=== PATIENT | female | born 2000 | race Two or more races ===

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

== ENCOUNTER → 2022-05-21 11:01 | Outpatient (BNVA) | payer OTHER, SELFPAY | PROVIDERS: PCP Pediatrics; Visit Provider Physician Assistant | DX: Z13.89 Encounter for screening for other disorder (principal) ==

== ENCOUNTER → 2022-06-10 10:53 | Outpatient (BNVA) | payer OTHER, SELFPAY | PROVIDERS: PCP Pediatrics; Visit Provider Physician Assistant Surgical | DX: E66.01 Morbid (severe) obesity due to excess calories (principal) | CPT/HCPCS: 99202 ==

== ENCOUNTER 2022-06-19 09:15 | Outpatient (REF) | payer OTHER, SELFPAY ==
--- NOTE | ~2022-06-19 | XR_ITS ---
EXAMINATION: XR CHEST CLINICAL INFORMATION: Reason for Exam E66.01 - Morbid (severe) obesity due to excess calories COMPARISON: Chest radiograph 07/10/2019 TECHNIQUE: 2 views of the chest FINDINGS: Clear lungs. No pneumothorax or pleural effusion. Normal cardiomediastinal silhouette. XR/XR chest 2V IMPRESSION: * Clear lungs.
--- NOTE | 2022-06-19 09:21 | ECG_ITS ---
Test Reason : MORBID OBESITY Blood Pressure : / mmHG Vent. Rate : 068 BPM Atrial Rate : 068 BPM P-R Int : 162 ms QRS Dur : 084 ms QT Int : 384 ms P-R-T Axes : 041 051 012 degrees QTc Int : 408 ms Normal sinus rhythm with sinus arrhythmia Nonspecific T wave abnormality Abnormal ECG When compared with ECG of 11-MAR-2011 13:06, No significant changes seen Referred By: Anjel Yo Electronically Signed By:Kana Dhillon
[2022-06-19 09:30] LABS: MANUAL DIFF FLAG NO
[2022-06-19 09:53] LABS: Basophils Percent Auto 0.5 % (0-2); Eosinophils Absolute Auto 0.2 X10*3/uL (0.0-0.4); Eosinophils Percent Auto 2.2 % (0-4); Estimated Average Glucose 114 mg/dL; Hematocrit 36.6 % (37.0-47.0); Hemoglobin 11.4 g/dl (12.0-16.0); Hemoglobin A1c % 5.6 %; Imm Gran Abs Auto 0.02 X10*3/uL (0.00-0.03); Imm Gran Pct Auto 0.2 % (0.0-0.4); Lymphocytes Absolute Auto 3.9 X10*3/uL (1.2-4.9); Lymphocytes Percent Auto 46.2 % (20-40); Mean Corpuscular HGB Conc 31.1 g/dl (31.0-35.0); Mean Corpuscular Hemoglobin 25.1 pg (27.0-33.0); Mean Corpuscular Volume 80.4 fL (80.0-98.0); Mean Platelet Volume 10.2 fL (9.4-12.3); Monocytes Absolute Auto 0.5 X10*3/uL (0.1-1.2); Monocytes Percent Auto 5.4 % (2-11); Neutrophils Absolute Auto 3.9 x10*3/uL (2.0-8.3); Neutrophils Percent Auto 45.5 % (45-73); Platelet Count 385 X10*3/uL (160-400); Red Blood Count 4.55 X10*6/uL (4.20-5.50); Red Cell Distribution Width 15.5 % (11.0-16.0); White Blood Count 8.5 X10*3/uL (4.8-10.8)
[2022-06-19 10:28] LABS: Alanine Aminotransferase 41 U/L (0-31); Albumin Level 4.3 g/dL (3.5-5.0); Alkaline Phosphatase 59 U/L (39-117); Anion Gap 13 (12-20); Aspartate Amino Transferase 38 U/L (5-31); Bilirubin Total 0.3 mg/dL (0.0-1.0); Blood Urea Nitrogen 13 mg/dL (9-16); C Reactive Protein 2.08 mg/dL (< or = 0.50); Calcium 9.1 mg/dL (8.4-10.2); Carbon Dioxide 25 mmol/L (22-29); Chloride 105 mmol/L (96-108); Cholesterol 207 mg/dL; Estimated Glomerular Filt Rate > 60; Glucose Random 98 mg/dL (60-115); HDL Cholesterol 28 mg/dL; Iron 35 mcg/dL (30-160); LDL Cholesterol Calculated 155 mg/dl; Percent Iron Saturation 13 % (15-50); Potassium 4.4 mmol/L (3.3-5.1); Sodium 139 mmol/L (135-145); Total Iron Binding Capacity 279 mcg/dL (228-428); Total Protein 7.3 g/dL (6.5-8.0); Triglycerides 124 mg/dL; Unsaturated Iron Binding 244 ug/dL
[2022-06-19 10:58] LABS: Ferritin 56 ng/mL (10-122); Folate 15.5 ng/mL (> or = 4.0); Insulin 21 uU/mL (2-29); TSH reflex Free T4 2.82 uIU/mL (0.32-4.0); Vitamin B12 237 pg/mL (200-900); Vitamin D 25-OH Total 8.8 ng/mL (>30)
[2022-06-23 13:39] LABS: Zinc 74 mcg/dL (60-130)
[2022-06-25 06:04] LABS: Vitamin A 40 mcg/dL (26-72)
[2022-06-26 11:34] LABS: Calcium (PTHI) 9.5 mg/dL (8.9-10.4)
[2022-06-26 16:59] LABS: Vitamin B1 9 nmol/L (8-30)
== END 2022-06-19 09:16 | disposition home or self-care (01) ==
LOC: HO.LAB 09:15
PROVIDERS: PCP Pediatrics; Visit Provider Physician Assistant Surgical
DX: D68.00 Von Willebrand disease, unspecified (principal); E78.00 Pure hypercholesterolemia, unspecified; E66.01 Morbid (severe) obesity due to excess calories
CPT/HCPCS: 36415; 71046; 80053; 80061; 82306; 82607; 82728; 82746; 83036; 83525; 83540; 83970; 84425; 84443; 84590; 84630; 85025; 86140; 93005

== ENCOUNTER 2022-06-26 11:26 | Outpatient (REF) | payer OTHER, SELFPAY ==
[2022-06-29 13:03] LABS: H Pylori Breath Test Negative (Negative)
== END 2022-06-26 11:27 | disposition home or self-care (01) ==
LOC: HO.LNP 11:26
PROVIDERS: PCP Pediatrics; Visit Provider Physician Assistant Surgical
DX: Z11.2 Encounter for screening for other bacterial diseases (principal)
CPT/HCPCS: 83013; 99211

== ENCOUNTER → 2022-06-30 12:49 | Outpatient (BNVA) | payer OTHER, SELFPAY | PROVIDERS: PCP Pediatrics; Visit Provider Physician Assistant Surgical | DX: E66.01 Morbid (severe) obesity due to excess calories (principal) | CPT/HCPCS: 99212 ==

== ENCOUNTER → 2022-07-01 14:00 | Outpatient (BNVA) | payer OTHER, SELFPAY | PROVIDERS: PCP Pediatrics; Visit Provider Counselor Mental Health ==

== ENCOUNTER → 2022-07-13 15:30 | Outpatient (BNVA) | payer OTHER, SELFPAY | PROVIDERS: Referring Provider Physician Assistant Surgical; Visit Provider Dietitian, Registered | DX: E66.9 Obesity, unspecified (principal) | CPT/HCPCS: 97802 ==

== ENCOUNTER → 2022-07-17 10:48 | Outpatient (BNVA) | payer OTHER, SELFPAY | PROVIDERS: PCP Pediatrics; Visit Provider Counselor Mental Health ==

== ENCOUNTER → 2022-08-11 14:06 | Outpatient (BNVA) | payer OTHER, SELFPAY | PROVIDERS: Visit Provider Physician Assistant Surgical | DX: E66.01 Morbid (severe) obesity due to excess calories (principal); Z68.41 Body mass index [BMI] 40.0-44.9, adult | CPT/HCPCS: 99212 ==

== ENCOUNTER → 2022-08-21 12:48 | Outpatient (BNVA) | payer OTHER, SELFPAY | PROVIDERS: Referring Provider Physician Assistant Surgical; Visit Provider Dietitian, Registered | DX: E66.9 Obesity, unspecified (principal); Z71.3 Dietary counseling and surveillance | CPT/HCPCS: 97803 ==

== ENCOUNTER → 2022-08-28 10:57 | Outpatient (BNVA) | payer OTHER, SELFPAY | PROVIDERS: Visit Provider Counselor Mental Health ==

== ENCOUNTER 2022-09-24 08:49 | Outpatient (REF) | payer OTHER, SELFPAY ==
--- NOTE | ~2022-09-24 | FL_ITS ---
EXAMINATION: XR FLUOROSCOPY UPPER GI WITH AIR CLINICAL INFORMATION: Morbid obesity. COMPARISON: None available. TECHNIQUE: Air-contrast upper GI examination. FINDINGS: There is normal elevation of the soft palate while saying candy. There is normal apposition of the vocal cords while saying E. The patient swallowed thin and thick barium and a half-inch diameter barium tablet without difficulty. No nasopharyngeal reflux or tracheal aspiration identified. No cricopharyngeal hypertrophy. There is normal esophageal motility. No persistent stricture or mucosal abnormality is seen. No hiatal hernia. No gastroesophageal reflux elicited with water siphon test. There is some retained gastric content making evaluation for luminal abnormality limited. No suspicious masses appreciated. There is normal distensibility of the stomach. There was no delay in gastric emptying. The duodenal bulb and sweep appeared unremarkable. FLUOROSCOPY TIME: 2.6 minutes. DOSE AREA PRODUCT: 26.592 Gy-cm2 (alvarez-centimeter squared). FL/FL upper GI w air IMPRESSION: Normal air-contrast upper GI examination. Small amount of retained gastric content present at time of study.
--- NOTE | ~2022-09-24 | US_ITS ---
EXAMINATION: US COMPLETE ABDOMEN WITH LIVER ELASTOGRAPHY CLINICAL INFORMATION: Obesity COMPARISON: Abdominal CT 2021 TECHNIQUE: Real-time imaging of the abdominal viscera. Noninvasive ultrasound liver fibrosis assessment is performed using Adiel ElastPQ point quantification shear wave elastography (2D-SWE) with a C5-2 MHz transducer. Multiple elastography samples are obtained. FINDINGS: PANCREAS: Normal. ABDOMINAL AORTA: The proximal, middle, and distal aortic segments are normal in caliber. INFERIOR VENA CAVA: Visualized portions are normal. LIVER: Echogenic liver suggestive of fatty infiltration. No focal lesion or intrahepatic biliary duct dilatation. The right lobe measures 17 cm in length. The left lobe measures 11 cm in length. Portal flow is normal/ Shear wave liver elastography median stiffness is 1.8 m/s (reference: normal median stiffness is 1.3 m/s or less). IQR/median stiffness to assess sampling precision is 0.15 (reference: good quality data set is IQR/median stiffness of 0.15 or less). GALLBLADDER: Normal. The gallbladder is physiologically distended without evidence of stones, sludge, polyps, wall thickening or pericholecystic fluid. COMMON BILE DUCT: Normal in caliber measuring 0.2 cm in diameter. RIGHT KIDNEY: Normal. No hydronephrosis. No renal calculi or focal parenchymal lesions. The kidney measures 11 cm in maximum dimension. LEFT KIDNEY: Normal. No hydronephrosis. No renal calculi or focal parenchymal lesions. The kidney measures 12 cm in maximum dimension. SPLEEN: Normal. The spleen measures 10 cm in maximum dimension. FREE FLUID: None. US/US abdomen comp w elastography IMPRESSION: 1. Impression: Echogenic liver suggestive of fatty infiltration. 2. Liver elastography: Slightly limited due to liver sampling. Liver stiffness slightly increased questionable for compensated advanced chronic liver disease but need further test for confirmation. REFERENCE: Society of Radiologists in Ultrasound Liver Stiffness Thresholds (2020): LIVER STIFFNESS THRESHOLDS: *Liver Stiffness equal or less than 1.3 m/s: High probability of being normal. *Liver Stiffness less than 1.7 m/s: In the absence of other known clinical signs, rules out compensated advanced chronic liver disease. *Liver Stiffness 1.7-2.1 m/s: Suggestive of compensated advanced chronic liver disease but need further test for confirmation. *Liver Stiffness over 2.1 m/s: Rules in compensated advanced chronic liver disease. *Liver Stiffness over 2.4 m/s: Suggestive of clinically significant portal hypertension. QUALITY OF DATA SET: *IQR/Median value equal or less than 0.15 implies a quality data set. *IQR/Median value over 0.15 implies a poor quality data set. SIGNIFICANT CHANGE FROM PRIOR EXAM: Significant change if liver stiffness measurement is 10% or greater from prior exam. OTHER CONSIDERATIONS: The stage of liver fibrosis may be overestimated in the setting of acute hepatitis, liver inflammation, elevated liver function tests, hepatic vascular congestion, obstructive cholestasis, non-fasting state, and infiltrative diseases such as amyloidosis and lymphoma. In some patients with NAFLD, the liver stiffness thresholds for compensated advanced chronic liver disease may be lower. In causes other than viral hepatitis and NAFLD, liver stiffness thresholds are not well established.
== END 2022-09-24 08:50 | disposition home or self-care (01) ==
LOC: HO.XRAY 08:49
PROVIDERS: Visit Provider Physician Assistant Surgical
DX: Z01.818 Encounter for other preprocedural examination (principal); D68.00 Von Willebrand disease, unspecified; E66.01 Morbid (severe) obesity due to excess calories; K21.9 Gastro-esophageal reflux disease without esophagitis; E78.00 Pure hypercholesterolemia, unspecified
CPT/HCPCS: 74246; 76705; 76981

== ENCOUNTER → 2022-09-25 10:30 | Outpatient (BNVA) | payer OTHER, SELFPAY | PROVIDERS: Visit Provider Counselor Mental Health ==

== ENCOUNTER → 2022-10-09 15:52 | Outpatient (BNVA) | payer OTHER, SELFPAY | PROVIDERS: Visit Provider Counselor Mental Health ==

== ENCOUNTER 2022-11-12 11:46 | Outpatient (AMB) | payer OTHER, SELFPAY ==
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
== END 2022-11-12 16:01 | disposition home or self-care (01) ==
PROVIDERS: Visit Provider Counselor Mental Health
DX: F34.1 Dysthymic disorder (principal); F43.20 Adjustment disorder, unspecified
CPT/HCPCS: 90837

== ENCOUNTER → 2022-11-12 11:46 | Outpatient (BNVA) | payer OTHER, SELFPAY | PROVIDERS: Visit Provider Counselor Mental Health ==

== ENCOUNTER 2022-11-18 12:00 | Outpatient (AMB) | payer OTHER, SELFPAY ==
--- NOTE | 2022-11-18 12:57 | MHC.WMTHER ---
Intake Intake Visit Reasons: VIDEO F/U [employer] Required: No Allergies bee pollen [BEE STINGS] Allergy (Severe, Verified 08/11/22 14:15) SWELLING amoxicillin [AMOXICILLIN] Allergy (Unknown, Verified 08/11/22 14:15) UNKNOWN SEASONAL ALLERGIES Allergy (Unknown, Uncoded 10/19/21 04:26) SINUS CONGESTION Do you need a note to return to daycare/school/sports/work: No PFSH Surgical History Hx of tonsillectomy Hx of wisdom tooth extraction Family History Mother Arthritis Anemia Father Diabetes High cholesterol Gout Brother No problems noted. Sister No problems noted. Sister No problems noted. Social History Alcohol intake: never Patient Tobacco Use Status: Never used Tobacco Behavioral Health Assessment Weight Management Therapy Therapy Notes Details PT presents for a f/up. PT presents sad as today is her grandfather's one year anniversary from his passing. Also stressed about school. PT states she has started drinking 1 shake at day (11am one), has been skipping breakfast and having regular dinner cooked by her mother. INTERVENTIONS: Discussed overall functioning. Processed grief and sadness as today is grandfather's 1 year anniversary. Validated feelings, explored ways she can cope with his loss and commemorate her grandfather's memory and honor his life, to start overcoming grief and slowly work towards acceptance of his loss. Worked in behavioral activation plan. Started by completing a TO-DO list and organizing rest of the week. Explored available resources in the community for her use. RESPONSE: Cooperative, responded well to interventions. PLAN: Continue receiving support on a bi-weekly basis. Presenting Concerns Referral Source Marlene Rivera [facility]. Reason for referral Supportive therapy for depression, anxiety, cope with recent trauma experiences and continue support with surgical weight-loss plan. Precipitating Event Family stress, Financial stress, medical issues. Assessment & Plan Assessment & Plan (1) Dysthymia: Code(s): F34.1 - Dysthymic disorder Plan: Bi-weekly sessions for symptom management and monitor functioning. (2) Adjustment disorder: Code(s): F43.20 - Adjustment disorder, unspecified Plan: Bi-weekly sessions to support with adjustment Sx with anxiety after recent traumatic losses. Plan Continue attending regular psychotherapy with this provider. -Management of urgers/thoughts around food -Consistency and adherence to WMP treatment -Symptom management (Depression/anxiety management) Telehealth Telehealth Location of provider rendering services: other Location of patient: address on file Patient Identification confirmed using: Name, : Yes Telehealth method: video Patient verbally consented to treatment: Yes Patient verbally consented to billing insurance company: Yes Patient informed of any privacy concerns related to visit: Yes Minutes spent on Phone/Video with Pt.: 60 Coding Level of Care Code Established Pt Tele Psytx >53 mins ([id number]) Patient Type Established Diagnoses Dysthymia F34.1 Adjustment disorder F43.20 Time Spent (min) 60
== END 2022-11-18 14:24 | disposition home or self-care (01) ==
LOC: HO.HBST 12:11
PROVIDERS: Visit Provider Counselor Mental Health
DX: F34.1 Dysthymic disorder (principal); F43.20 Adjustment disorder, unspecified
CPT/HCPCS: 90837

== ENCOUNTER → 2022-11-18 12:00 | Outpatient (BNVA) | payer OTHER, SELFPAY | PROVIDERS: Visit Provider Counselor Mental Health ==

== ENCOUNTER 2022-11-30 15:19 | Outpatient (AMB) | payer OTHER, SELFPAY ==
--- NOTE | 2022-11-30 15:30 | MHC.OFFVISWM ---
Intake VS Expanded 11/30/22 15:33 Height 4 ft 11 in Weight 226 lb BMI 45.6 BP 128/60 Blood Pressure Location Rt brachial Blood Pressure Position Sitting Pulse 67 Pulse Source Pulse Oximeter Temp 97.6 F Temperature Source Temporal Artery Scan Pulse Oximetry 97 Oxygen Delivery Method Room Air Body Fat 97.0 Body Fat Percentage 42.9 Free Fat Mass 129.0 Muscle Mass 122.4 Visceral Mass 11.0 Water Mass 92.8 BMR 1,871 Intake Visit Reasons: (OV) F/U SWL Equipment [employer] Required: No Allergies bee pollen [BEE STINGS] Allergy (Severe, Verified 11/30/22 15:32) SWELLING amoxicillin [AMOXICILLIN] Allergy (Unknown, Verified 11/30/22 15:32) UNKNOWN SEASONAL ALLERGIES Allergy (Unknown, Uncoded 10/19/21 04:26) SINUS CONGESTION Medication List - Last Reconciled 11/30/22 by SHARON Pena cholecalciferol (vitamin D3) 125 mcg PO DAILY clindamycin phosphate 1% 1 appl topical DAILY cyanocobalamin (vitamin B-12) 500 mcg PO DAILY doxycycline hyclate 100 mg PO DAILY ferrous sulfate (FeroSul) 325 mg PO DAILY spironolactone 25 mg PO QAM thiamine HCl (vitamin B1) 100 mg PO DAILY HPI HPI Comments History of Present Illness Details The patient is a pleasant 22 year old female who returns to the clinic for pre-operative surgical weight loss management. They were last seen in the office on 08/11/22, recorded weight at that time was 219.6 pounds, with a BMI of 44.3. Today's weight is 226 pounds and BMI is 45.7. There has been a weight loss of 7.4 pounds since initiating the surgical weight loss program on 06/10/22 with a total body weight loss of 3.1 %. Pre op work up completed as follows: SWL classes:? 11/10 appts: f/u 12/09/22 RD appts: cleared 08/21/22 Labs: 06/19/22-low D, iron, B12:237, B1 H. pylori: 06/26/22-neg CXR: 06/19/22-nad EK06/19/22-non sp T wave abnl ABD U/S: 09/24/22-fatty liver UGI: 09/24/22-normal The patient reports she has been dealing with grief and an ailing grandmother. She has recognized her weight gain but reports she wants to remain in the progrgam and continue to lose the wqeight. SHe has been in frequent meetings with . She was off the meal plan for 6 weeks and re-started about 2 months ago. Current meal plan includes: 3 Orgain shakes First shake (1 scoop in 8 oz unsweetened almond milk, may add ice if you wish) at 8am-10am Second shake (1 scoop in 8 oz unsweetened almond milk, may add ice if you wish) at 11am-1pm 1 occitan yogurt w fresh berries at 2pm-4pm. Dinner at 430pm (8 forks of protein and 8 forks of salad/vegetables). Another shake with 1 scoop in 8 oz unsweetened almond milk at 730pm-930pm. Drinking 64 oz of water, no soda or juice Current exercise plan includes: 3 days per week walking at home, around the block, 30-60 minutes, [address] PFSH Surgical History Hx of tonsillectomy Hx of wisdom tooth extraction Family History Mother Arthritis Anemia Father Diabetes High cholesterol Gout Brother No problems noted. Sister No problems noted. Sister No problems noted. Social History Alcohol intake: never Patient Tobacco Use Status: Never used Tobacco Physical Exam Vital Signs: Last Vital Signs Temp 97.6 F 11/30/22 15:33 Pulse 67 11/30/22 15:33 BP 128/60 11/30/22 15:33 Pulse Ox 97 11/30/22 15:33 Oxygen Delivery Method Room Air 11/30/22 15:33 BMI result Body Mass Index 45.6 Const General: healthy appearing and no acute distress Resp Effort & Inspection: normal respiratory effort Auscultation: clear to auscultation bilaterally Cardio Rate: regular rate Rhythm: regular rhythm GI Auscultation: normal bowel sounds Extrem General: Yes normal to inspection Assessment & Plan Assessment & Plan (1) Morbid obesity: Code(s): E66.01 - Morbid (severe) obesity due to excess calories Plan: Pt had 6 week time off meal plan and has not been seen in 3 months. She reports she is now back on track after dealing with grief and an ailing grandmother. She states she wants to continue the SWL program. Encouraged to go to the gym Meal plan is balanced but not enough exercise. She will continue to try and will rtc in 4 weeks. If unable to continue will w/d Encouraged to text weekly with weight and if any questions. Coding Level of Care Code Est Pt Level 3 (31543) Diagnoses Morbid obesity E66.01
[2022-11-30 15:33] VITALS: BP 128/60; PULSE 67; TEMP 36.4; O2SAT 97; BMI 45.6
== END 2022-11-30 15:58 | disposition home or self-care (01) ==
PROVIDERS: Visit Provider Physician Assistant Surgical
DX: E66.01 Morbid (severe) obesity due to excess calories (principal); Z68.42 Body mass index [BMI] 45.0-49.9, adult
CPT/HCPCS: 99213

== ENCOUNTER → 2022-11-30 15:19 | Outpatient (BNVA) | payer OTHER, SELFPAY | PROVIDERS: Visit Provider Physician Assistant Surgical | DX: E66.01 Morbid (severe) obesity due to excess calories (principal); E51.9 Thiamine deficiency, unspecified; E53.8 Deficiency of other specified B group vitamins; E55.9 Vitamin D deficiency, unspecified; K76.0 Fatty (change of) liver, not elsewhere classified; Z68.42 Body mass index [BMI] 45.0-49.9, adult | CPT/HCPCS: 99212 ==

== ENCOUNTER 2022-12-07 12:21 | Emergency (ER) | payer OTHER, SELFPAY ==
[2022-12-07 12:35] VITALS: BP 142/88; PULSE 86; RESP 16; TEMP 36.2; O2SAT 97; BMI 46.4
--- NOTE | 2022-12-07 12:36 | ED.GENADULT ---
HPI - General Adult General Chief complaint: Upper Respiratory Symptoms Stated complaint: sore throat Time Seen by Provider: 12/07/22 14:59 Source: patient Mode of arrival: ambulatory Limitations: no limitations History of Present Illness HPI narrative: Patient is a 22-year-old female presenting to the emergency department with complaint of sore throat, cough, shortness of breath for 3 days. States feels as though throat is closing when swallowing. Denies fevers. 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 MD complaint: sore throat, cough Onset (ago): day(s) Severity: moderate Quality: burning Pain Consistency: constant Relieving factors: none Exacerbating factors: eating Associated symptoms: cough Treatments prior to arrival: none Related Data Home Medications Medication Instructions Recorded Confirmed clindamycin phosphate 1 % topical 1 appl topical DAILY 06/10/22 11/30/22 gel doxycycline hyclate 100 mg 100 mg PO DAILY 06/10/22 11/30/22 tablet,delayed release spironolactone 25 mg tablet 25 mg PO QAM 06/30/22 11/30/22 Previous Rx's Medication Instructions Recorded cholecalciferol (vitamin D3) 125 125 mcg PO DAILY #90 caps 06/19/22 mcg (5,000 unit) capsule cyanocobalamin (vitamin B-12) 500 500 mcg PO DAILY #90 tabs 06/19/22 mcg tablet ferrous sulfate 325 mg (65 mg 325 mg PO DAILY #60 tabs 06/19/22 iron) tablet (FeroSul) thiamine HCl (vitamin B1) 100 mg 100 mg PO DAILY #90 tabs 06/29/22 tablet Allergies Allergy/AdvReac Type Severity Reaction Status Date / Time bee pollen [BEE STINGS] Allergy Severe SWELLING Verified 12/07/22 12:39 amoxicillin [AMOXICILLIN] Allergy Unknown UNKNOWN Verified 12/07/22 12:39 SEASONAL ALLERGIES Allergy Unknown SINUS Uncoded 12/07/22 12:39 CONGESTION Review of Systems Review of Systems: As per HPI. Yes all other systems are reviewed and are negative Constitutional: Constitutional: Reports as per HPI PMF Past Medical History Surgical History Hx of tonsillectomy Hx of wisdom tooth extraction Family History Family History Mother Arthritis Anemia Father Diabetes High cholesterol Gout Brother No problems noted. Sister No problems noted. Sister No problems noted. Social History Social History Alcohol intake: never Patient Tobacco Use Status: Never used Tobacco Physical Exam ED Vital Signs: Vital Signs - 24 hr 12/07/22 12:35 Temperature 97.2 F Pulse Rate 86 Respiratory Rate 16 Blood Pressure 142/88 H Pulse Oximetry 97 Oxygen Delivery Method Room Air BMI result Body Mass Index 46.4 Vital signs have been reviewed and appear to be correct. Blood pressure normal. Heart rate normal. Respiratory rate normal. Temperature normal. Oxygen saturation normal. Const General: cooperative, healthy appearing and no acute distress Orientation/consciousness: oriented to person, oriented to place, oriented to time and patient oriented x3 Limitations: no limitations HENMT Head: Yes normocephalic and Yes atraumatic Ears: external ears normal and TM's normal bilaterally General nose exam: Normal external nose present Face and sinus: Yes face symmetric Mouth: oropharynx normal and moist mucous membranes Throat: Yes posterior oropharynx normal, Yes tonsils normal, Yes uvula midline and No uvular edema Eyes Pupils: Equal, round and reactive pupils present Neck Neck: Yes normal visual inspection and Yes supple Resp Effort & Inspection: normal respiratory effort and able to speak in complete sentences Auscultation: clear to auscultation bilaterally Cardio Rate: regular rate Rhythm: regular rhythm Heart sounds: S1 normal heart sound present and S2 normal heart sound present GI Palpation (GI): Soft to palpation and nontender Auscultation: normoactive bowel sounds General: Yes no CVA tenderness Back/Spine/Pelvis Back: no CVA tenderness Skin General skin exam: elasticity normal and turgor normal Neuro General: oriented to person, oriented to place, oriented to time, patient oriented x3, moves all extremities, no focal motor deficits and CN's II-XI intact bilaterally Cranial nerves: Yes Equal, round and reactive pupils present Cognition (Neuro): normal cognition Extrem General: Yes full ROM, Yes no pedal edema and Yes no calf tenderness Psych Mental Status: mental status grossly normal Affect: normal affect Thought process: Normal thought process present Medical Decision Making Medical Decision Making MDM Narrative: Patient is a 22-year-old female presenting to the emergency department with complaint of sore throat, cough, shortness of breath for 3 days. On exam patient is awake, A+Ox3, VS WNL, afebrile, normal neurological exam without focal deficits, TMs normal bilaterally, no erythema, edema, or exudate to posterior oropharynx, lungs clear throughout. Given reported symptoms and physical exam findings, initial differential includes viral illness, COVID, influenza, strep pharyngitis. Swabs for COVID, flu, and strep all negative, patient updated on results. Discussed with patient that symptoms are likely related to a viral infection which will resolve on their own with rest and fluids. Advised Tylenol or ibuprofen for symptomatic treatment, warm saltwater gargles. Instructed patient to follow-up with primary care provider this week. Return precautions discussed. Patient verbalized understanding of and agreement with plan. Differential Diagnosis Differential Diagnoses: The differential diagnosis associated with the presentation includes As per [facility]. Lab Data [facility] Lab Attestation statement: I reviewed the patient's lab results. As per [facility]. Labs: Lab Results 12/07/22 12/07/22 12/07/22 Range/Units 13:28 13:28 13:28 COVID-19 (PIEDAD) Negative (Negative) COVID-19 Clin Com See Note Influenza Type A (SARI) Negative (Negative) Influenza Type B (SARI) Negative (Negative) Influenza A & B Note See Note S. pyogenes GrpA SARI Negative (Negative) External Record Review External record reviewed: Inpatient record, Office record and Outpatient record Discharge Plan Discharge Clinical Impression: Viral infection Patient Disposition: Home, Self-Care Instructions: Viral Syndrome (ED) Additional Instructions: You were evaluated in the emergency department today for sore throat and cough. Your Covid, flu, and strep tests were all negative. Your symptoms are likely related to a viral illness which will resolve on its own with time and rest. You should ensure adequate fluid intake, and can use Tylenol 650 mg or ibuprofen 600 mg every 6 hours as needed for fever or discomfort. You can also gargle with warm salt water several times daily. Please follow-up with your primary care provider this week. Return to the emergency department if you develop chest pain, worsening shortness of breath, difficulty swallowing, fever 100.4? F or greater or any other concerning symptoms. Prescriptions: No Action cyanocobalamin (vitamin B-12) 500 mcg tablet 500 mcg PO DAILY Qty: 90 1RF ferrous sulfate [FeroSul] 325 mg (65 mg iron) tablet 325 mg PO DAILY Qty: 60 0RF cholecalciferol (vitamin D3) 125 mcg (5,000 unit) capsule 125 mcg PO DAILY Qty: 90 0RF thiamine HCl (vitamin B1) 100 mg tablet 100 mg PO DAILY Qty: 90 0RF clindamycin phosphate 1 % gel 1 appl topical DAILY doxycycline hyclate 100 mg tablet,delayed release (DR/EC) 100 mg PO DAILY spironolactone 25 mg tablet 25 mg PO QAM
[2022-12-07 13:55] LABS: IDNOW Serial# 6674DD1D; Strep A Nucleic Acid Negative (Negative)
[2022-12-07 14:00] LABS: COVID-19 Test Negative (Negative); IDNOW Serial# 55D5AD1C
[2022-12-07 14:08] LABS: IDNOW Serial# BCCEAD1C; Influenza A Negative (Negative); Influenza B2 Negative (Negative)
== END 2022-12-07 15:09 | disposition home or self-care (01) ==
PROVIDERS: Registered Nurse Emergency; Emergency Provider Emergency Medicine
DX: B34.9 Viral infection, unspecified (principal); R05.9 Cough, unspecified; Z20.822 Contact with and (suspected) exposure to COVID-19; Z20.828 Contact with and (suspected) exposure to other viral communicable diseases; Z79.899 Other long term (current) drug therapy
CPT/HCPCS: 87502; 87635; 87651; 99282; 99283

== ENCOUNTER 2022-12-09 11:00 | Outpatient (AMB) | payer OTHER, SELFPAY ==
--- NOTE | 2022-12-09 11:08 | MHC.WMTHER ---
Intake Intake Visit Reasons: VIDEO BH F/U Allergies bee pollen [BEE STINGS] Allergy (Severe, Verified 12/07/22 12:39) SWELLING amoxicillin [AMOXICILLIN] Allergy (Unknown, Verified 12/07/22 12:39) UNKNOWN SEASONAL ALLERGIES Allergy (Unknown, Uncoded 12/07/22 12:39) SINUS CONGESTION PFSH Surgical History Hx of tonsillectomy Hx of wisdom tooth extraction Family History Mother Arthritis Anemia Father Diabetes High cholesterol Gout Brother No problems noted. Sister No problems noted. Sister No problems noted. Social History Alcohol intake: never Patient Tobacco Use Status: Never used Tobacco Behavioral Health Assessment Weight Management Therapy Therapy Notes Details PT presents for a f/up. PT presents frustrated about challenges to be fully committed with WMP. INTERVENTIONS: Active listening, processed sources of stress. Problem solving exercise. Clinical case management provided by Assisted client with available resources for housing and get her own SNAP benefits. Gently challenge client about her goals/expectations Vs. Program expectation. RESPONSE: PT cooperative and active in session. PLAN: Continue receiving support on a bi-weekly basis. Presenting Concerns Referral Source Marlene Rivera [facility]. Reason for referral Supportive therapy for depression, anxiety, cope with recent trauma experiences and continue support with surgical weight-loss plan. Precipitating Event Family stress, Financial stress, medical issues. Assessment & Plan Assessment & Plan (1) Dysthymia: Code(s): F34.1 - Dysthymic disorder Plan: Bi-weekly sessions for symptom management and monitor functioning. (2) Adjustment disorder: Code(s): F43.20 - Adjustment disorder, unspecified Qualifiers: Adjustment disorder type: with anxious mood Qualified Code(s): F43.22 - Adjustment disorder with anxiety Plan: Bi-weekly sessions to support with adjustment Sx with anxiety after recent traumatic losses. Plan Continue attending regular psychotherapy with this provider. -Management of urgers/thoughts around food -Consistency and adherence to WMP treatment -Symptom management (Depression/anxiety management) Telehealth Telehealth Location of provider rendering services: other Location of patient: address on file Patient Identification confirmed using: Name, : Yes Telehealth method: video Patient verbally consented to treatment: Yes Patient verbally consented to billing insurance company: Yes Patient informed of any privacy concerns related to visit: Yes Minutes spent on Phone/Video with Pt.: 60 Coding Level of Care Code Established Pt Tele Psytx >53 mins ([id number]) Patient Type Established Diagnoses Dysthymia F34.1 Adjustment disorder with anxious mood F43.22 Adjustment disorder type: with anxious mood Time Spent (min) 60
== END 2022-12-09 12:00 ==
PROVIDERS: Visit Provider Counselor Mental Health
DX: F34.1 Dysthymic disorder (principal); F43.22 Adjustment disorder with anxiety
CPT/HCPCS: 90837

== ENCOUNTER → 2022-12-09 11:00 | Outpatient (BNVA) | payer OTHER, SELFPAY | PROVIDERS: Visit Provider Counselor Mental Health ==

== ENCOUNTER 2022-12-16 11:48 | Outpatient (AMB) | payer OTHER, SELFPAY ==
--- NOTE | 2022-12-16 11:57 | MHC.WMTHER ---
Intake Intake Visit Reasons: VIDEO BH F/U Allergies bee pollen [BEE STINGS] Allergy (Severe, Verified 12/07/22 12:39) SWELLING amoxicillin [AMOXICILLIN] Allergy (Unknown, Verified 12/07/22 12:39) UNKNOWN SEASONAL ALLERGIES Allergy (Unknown, Uncoded 12/07/22 12:39) SINUS CONGESTION PFSH Surgical History Hx of tonsillectomy Hx of wisdom tooth extraction Family History Mother Arthritis Anemia Father Diabetes High cholesterol Gout Brother No problems noted. Sister No problems noted. Sister No problems noted. Social History Alcohol intake: never Patient Tobacco Use Status: Never used Tobacco Behavioral Health Assessment Weight Management Therapy Therapy Notes Details PT presents for a f/up. PT reports she's sick still and has been more tired than usual. PT states she's considering taking a break from program as she has increased stress with her current financial and personal life. INTERVENTIONS: Active listening, processed sources of stress. Completed a behavioral activation plan to start and plan for her day. Encourage client to practice the same every day. Advised to discuss with provider about her decision. RESPONSE: PT cooperative and active in session. PLAN: Continue receiving support on a weekly basis. Presenting Concerns Referral Source Marlene Rivera [facility]. Reason for referral Supportive therapy for depression, anxiety, cope with recent trauma experiences and continue support with surgical weight-loss plan. Precipitating Event Family stress, Financial stress, medical issues. Assessment & Plan Assessment & Plan (1) Dysthymia: Code(s): F34.1 - Dysthymic disorder (2) Adjustment disorder: Code(s): F43.20 - Adjustment disorder, unspecified Plan Continue attending regular psychotherapy with this provider. -Management of urgers/thoughts around food -Consistency and adherence to WMP treatment -Symptom management (Depression/anxiety management) Telehealth Telehealth Location of provider rendering services: other Location of patient: address on file Patient Identification confirmed using: Name, : Yes Telehealth method: video Patient verbally consented to treatment: Yes Patient verbally consented to billing insurance company: Yes Patient informed of any privacy concerns related to visit: Yes Minutes spent on Phone/Video with Pt.: 45 Coding Level of Care Code Established Pt Tele Psytx 45 mins ([id number]) Patient Type Established Diagnoses Dysthymia F34.1 Adjustment disorder F43.20 Time Spent (min) 45
== END 2022-12-16 12:03 | disposition home or self-care (01) ==
LOC: HO.HBST 11:48
PROVIDERS: Visit Provider Counselor Mental Health
DX: F34.1 Dysthymic disorder (principal); F43.20 Adjustment disorder, unspecified
CPT/HCPCS: 90834

== ENCOUNTER → 2022-12-16 11:48 | Outpatient (BNVA) | payer OTHER, SELFPAY | PROVIDERS: Visit Provider Counselor Mental Health ==

== ENCOUNTER 2023-05-17 11:39 | Emergency (ER) | payer OTHER, SELFPAY ==
--- NOTE | ~2023-05-17 | XR_ITS ---
EXAMINATION: XR CHEST CLINICAL INFORMATION: Cough. COMPARISON: None available. TECHNIQUE: 2 views of the chest were obtained. FINDINGS: No significant abnormality is noted involving the heart, lungs, mediastinum, bony thorax or soft tissues. XR/XR chest 2V IMPRESSION: Normal chest PA and lateral.
[2023-05-17 11:52] VITALS: BP 130/85; PULSE 100; RESP 16; TEMP 36.3; O2SAT 95; BMI 46.4
--- NOTE | 2023-05-17 11:52 | ED_ITS ---
HPI - General Adult General Chief complaint: Upper Respiratory Symptoms Stated complaint: cold like symptoms Time Seen by Provider: 05/17/23 13:54 Source: patient Mode of arrival: ambulatory Limitations: no limitations History of Present Illness HPI narrative: Patient is a 22 year old assigned female at with a history of von willebrand disease presenting to the emergency department today with a cough and congestion. Patient states that over the last 2 days she has had a cough and congestion. Patient states that she lives in a home with COVID+ individuals. Patient denies any dizziness, lightheadedness, abdominal pain, nausea, vomiting, fever, chills, blurry vision, double vision, loss of vision, chest pain, difficulty breathing, shortness of breath, back pain, night sweats, pain with urination, increased urinary frequency, increased urinary urgency, blood in her urine or stool, syncope or a near syncopal episode, recent trauma or falls, bowel incontinence, bladder incontinence, bowel retention, bladder retention, or any other complaints at this time. Onset (ago): day(s) (2) Severity: mild Severity scale (1-10): 2 Relieving factors: none Exacerbating factors: none Associated symptoms: cough Treatments prior to arrival: none Related Data Home Medications Medication Instructions Recorded Confirmed clindamycin phosphate 1 % topical 1 appl topical DAILY 06/10/22 11/30/22 gel doxycycline hyclate 100 mg 100 mg PO DAILY 06/10/22 11/30/22 tablet,delayed release spironolactone 25 mg tablet 25 mg PO QAM 06/30/22 11/30/22 Previous Rx's Medication Instructions Recorded cholecalciferol (vitamin D3) 125 125 mcg PO DAILY #90 caps 06/19/22 mcg (5,000 unit) capsule cyanocobalamin (vitamin B-12) 500 500 mcg PO DAILY #90 tabs 06/19/22 mcg tablet ferrous sulfate 325 mg (65 mg 325 mg PO DAILY #60 tabs 06/19/22 iron) tablet (FeroSul) thiamine HCl (vitamin B1) 100 mg 100 mg PO DAILY #90 tabs 06/29/22 tablet Allergies Allergy/AdvReac Type Severity Reaction Status Date / Time bee pollen [BEE STINGS] Allergy Severe SWELLING Verified 05/17/23 11:55 amoxicillin [AMOXICILLIN] Allergy Unknown UNKNOWN Verified 05/17/23 11:55 SEASONAL ALLERGIES Allergy Unknown SINUS Uncoded 05/17/23 11:55 CONGESTION Review of Systems Constitutional: Constitutional: Reports no additional constitutional complaints, Denies chills, Denies fever(s) and Denies night sweats Eyes: Eyes: Reports no additional eye complaints, Denies blurry vision, Denies change in vision, Denies diplopia, Denies eye discharge, Denies loss of vision and Denies eye pain ENT: Denies dizziness and Reports nasal congestion Cardiovascular: Cardiovascular: Reports no additional cardiovascular complaints, Denies chest pain, Denies lightheadedness, Denies Loss of Consciousness and Denies dyspnea Respiratory: Respiratory: Reports no additional respiratory complaints, Reports cough and Denies dyspnea Gastrointestinal: Gastrointestinal: Reports no additional gastrointestinal complaints, Denies abdominal pain, Denies melena, Denies hematochezia, Denies change in bowel habits and Denies change in stool character Genitourinary: Genitourinary: Denies hematuria, Denies urinary frequency, Denies dysuria, Denies urinary incontinence, Denies urinary hesitancy and Denies urinary urgency Musculoskeletal: Musculoskeletal: Reports no additional musculoskeletal complaints, Denies numbness and Denies tingling Neurologic: Denies dizziness, Denies loss of vision, Denies numbness and Denies tingling Psychiatric: Psychiatric: Reports no additional psychiatric complaints Endocrine: Endocrine: Reports no additional endocrine complaints Hematologic/Lymphatic: Hematologic/Lymphatic: Reports no additional hematologic/lymphatic complaints Allergic/Immunologic: Allergic/Immunologic: Reports no additional allerg ic/immunologic complaints [facility] Past Medical History Attestation statement: The following information was validated with the patient. Source: old records reviewed and nursing notes reviewed Surgical History Hx of wisdom tooth extraction Hx of tonsillectomy Family History Family History Mother Arthritis Anemia Father Diabetes High cholesterol Gout Brother No problems noted. Sister No problems noted. Sister No problems noted. Social History Social History Alcohol intake: never Patient Tobacco Use Status: Never used Tobacco Advance Directives: No Physical Exam ED Vital Signs: Vital Signs - 24 hr 05/17/23 11:52 Temperature 97.3 F Pulse Rate 100 Respiratory Rate 16 Blood Pressure 130/85 Pulse Oximetry 95 Oxygen Delivery Method Room Air BMI result Body Mass Index 46.4 Const General: cooperative, no acute distress, alert and awake Nutritional Appearance: well nourished Orientation/consciousness: patient oriented x3 Limitations: no limitations HENMT Head: Yes normal to inspection and Yes atraumatic Ears: hearing grossly normal bilaterally and external ears normal General nose exam: Normal external nose present, no nasal discharge noted and no epistaxis Face and sinus: Yes normal facial exam, No abrasion and No laceration Mouth: Normal oral and palatal mucosa present, no drooling and no muffled voice Eyes General: appearance normal, both eyes and all related structures Periorbital: periorbital findings normal Eyelids: Yes eyelids normal Conjunctivae: conjunctivae normal Pupils: Equal, round and reactive pupils present EOM: EOMs intact bilaterally Neck Neck: Yes normal visual inspection, Yes full ROM and Yes no lymphadenopathy Chest Chest palpation & inspection: normal inspection of the chest Resp Effort & Inspection: normal respiratory effort and able to speak in complete sentences Auscultation: clear to auscultation bilaterally GI Inspection: Yes normal to inspection Neuro General: patient oriented x3 and moves all extremities Cranial nerves: Yes Equal, round and reactive pupils present Cognition (Neuro): normal cognition Motor exam (neuro): 5/5 motor strength present throughout Sensory Exam: Normal double simultaneous stimulation for sensation Coordination: [id number] test normal Extrem General: Yes normal to inspection, Yes full ROM and Yes capillary refill normal Psych Appearance: grossly normal Mental Status: mental status grossly normal Affect: normal affect Attitude: cooperative Thought process: Normal thought process present Thought content: Normal thought content present Insight: Good insight present (Psych) Course Course Course Narrative: RME performed by Cami Langley PA-C. Patient is a 22 year old assigned female at presenting to the emergency department with nasal congestion and a cough. Detailed physical exam and review of systems are deferred to the department clinician. Imaging and swabs ordered. Patient placed back in the waiting room pending room availability and results. Medical Decision Making Medical Decision Making MDM Narrative: Patient is a 22 year old assigned female at with a history of von willebrand disease presenting to the emergency department today with COVID-19. Patient's physical exam was unremarkable. Patient's chest x-ray showed no acute process. Patient's COVID-19 test was positive. Patient's Influenza test was negative. I explained my physical exam findings as well as all test results to the patient. I answered all questions asked by the patient. I stressed the importance of the patient taking her medication as prescribed. I stressed the importance of the patient following up with her primary care provider. I stressed the importance of the patient returning to the emergency department immediately if her symptoms were to worsen or if she were to develop any dizziness, shortness of breath, difficulty breathing, chest pain, blurry vision, loss of vision, nausea, vomiting, abdominal pain, fever, chills, back pain, or any other complaints. Patient verbalized agreement and understanding with this treatment plan and discharge. Differential Diagnosis Differential Diagnoses: The differential diagnosis associated with the presentation includes COVID-19 Influenza Viral illness Admission/Observation Consideration of admission/observation: Escalation of care including admission/observation considered Patient would have been admitted to the hospital had her work up had any findings where hospital admission was appropriate and her clinical presentation warranted hospital admission. Lab Data [facility] Lab Attestation statement: I reviewed the patient's lab results. My interpretation of these results are in the [facility] Rationale portion of this note. Labs: Lab Results 05/17/23 Range/Units 12:26 COVID-19 (PIEDAD) Positive A (Negative) COVID-19 Clin Com See Note Influenza Type A (SARI) Negative (Negative) Influenza Type B (SARI) Negative (Negative) Influenza A & B Note See Note Independent Interpretation I performed an independent interpretation of an: Plain X-Ray Interpretation: My interpretation is in agreement with the radiologist's impression of this imaging study. EXAMINATION: XR CHEST CLINICAL INFORMATION: Cough. COMPARISON: None available. TECHNIQUE: 2 views of the chest were obtained. FINDINGS: No significant abnormality is noted involving the heart, lungs, mediastinum, bony thorax or soft tissues. XR/XR chest 2V IMPRESSION: Normal chest PA and lateral. Dictated By: Golden Capps Signed By: Electronically signed by Golden Capps 05/17/23 3230 Radiology Impression Discussion of test interpretation with radiology: I have reviewed the radiologist's reading. Discharge Plan Discharge Clinical Impression: COVID-19 Patient Disposition: Home, Self-Care Instructions: COVID-19 (Coronavirus Disease 2019) (ED) Additional Instructions: Follow up with your primary care provider. Return to the emergency department im mediately if your symptoms worsen or if you develop any dizziness, shortness of breath, difficulty breathing, chest pain, blurry vision, loss of vision, nausea, vomiting, abdominal pain, fever, chills, back pain, or any other complaints. Prescriptions: No Action cyanocobalamin (vitamin B-12) 500 mcg tablet 500 mcg PO DAILY Qty: 90 1RF ferrous sulfate [FeroSul] 325 mg (65 mg iron) tablet 325 mg PO DAILY Qty: 60 0RF cholecalciferol (vitamin D3) 125 mcg (5,000 unit) capsule 125 mcg PO DAILY Qty: 90 0RF thiamine HCl (vitamin B1) 100 mg tablet 100 mg PO DAILY Qty: 90 0RF clindamycin phosphate 1 % gel 1 appl topical DAILY doxycycline hyclate 100 mg tablet,delayed release (DR/EC) 100 mg PO DAILY spironolactone 25 mg tablet 25 mg PO QAM Referrals: [facility] [place] Family Medicine [Provider Group] (Call to establish and follow up with a primary care provider. If you already have a primary care provider, please follow up with them.) [facility] [place] Primary Care, Miriam [Provider Group] (Call to establish and follow up with a primary care provider. If you already have a primary care provider, please follow up with them.) [facility] [place] Primary Care,Eric [Provider Group] (Call to establish and follow up with a primary care provider. If you already have a primary care provider, please fo llow up with them.) Stand Alone Forms: Work/School Release Interventions: ED Discharge Assessment Last Done: 05/17/23 14:02 Discharge Date/Time: 05/17/23 14:02 Print Language: Greek
[2023-05-17 12:40] LABS: COVID-19 Test Positive (Negative); IDNOW Serial# 08D9AD1C
[2023-05-17 13:02] LABS: IDNOW Serial# 58CA691E; Influenza A Negative (Negative); Influenza B2 Negative (Negative)
== END 2023-05-17 14:02 | disposition home or self-care (01) ==
PROVIDERS: Physician Assistant Medical; Emergency Provider Emergency Medicine
DX: U07.1 COVID-19 (principal); R05.9 Cough, unspecified; Z79.899 Other long term (current) drug therapy
CPT/HCPCS: 71046; 87502; 87635; 99282; 99283

== ENCOUNTER 2023-06-09 23:27 | Emergency (ER) | payer OTHER, SELFPAY ==
[2023-06-09 23:40] VITALS: BP 157/82; PULSE 115; RESP 18; TEMP 36.8; O2SAT 98; BMI 47.9
[2023-06-10 00:27] LABS: MANUAL DIFF FLAG NO
[2023-06-10 00:29] LABS: Basophils Percent Auto 0.2 % (0-2); Eosinophils Absolute Auto 0.1 X10*3/uL (0.0-0.4); Eosinophils Percent Auto 1.2 % (0-4); Hematocrit 39.8 % (37.0-47.0); Hemoglobin 12.5 g/dl (12.0-16.0); Imm Gran Abs Auto 0.02 X10*3/uL (0.00-0.03); Imm Gran Pct Auto 0.2 % (0.0-0.4); Lymphocytes Absolute Auto 1.3 X10*3/uL (1.2-4.9); Lymphocytes Percent Auto 12.7 % (20-40); Mean Corpuscular HGB Conc 31.4 g/dl (31.0-35.0); Mean Corpuscular Hemoglobin 24.4 pg (27.0-33.0); Mean Corpuscular Volume 77.7 fL (80.0-98.0); Mean Platelet Volume 9.8 fL (9.4-12.3); Monocytes Absolute Auto 0.4 X10*3/uL (0.1-1.2); Monocytes Percent Auto 3.7 % (2-11); Neutrophils Absolute Auto 8.1 x10*3/uL (2.0-8.3); Platelet Count 377 X10*3/uL (160-400); Red Blood Count 5.12 X10*6/uL (4.20-5.50); Red Cell Distribution Width 16.9 % (11.0-16.0); White Blood Count 9.8 X10*3/uL (4.8-10.8)
[2023-06-10 00:32] LABS: Appearance Urine Clear; Color Urine Yellow; Glucose Urine UA Negative (Negative); Leukocyte Esterase Urine Negative (Negative); Nitrite Urine Negative (Negative); Specific Gravity - Urine <= 1.005 (1.005-1.025); Urine Blood Negative (Negative); Urine Ketones Negative (Negative); Urine Protein Negative (Neg-Trace)
[2023-06-10 00:36] LABS: Bacteria Urine None Seen (None Seen); Hyaline Casts Urine 0-2 /LPF (0-2); RBC Urine 0-2 /HPF (0-2); Squamous Epithelial Cell Urine 0-2 /HPF (0-2); WBC Urine 0-5 /HPF (0-5)
[2023-06-10 00:37] LABS: UPreg QC Valid YES; Urine Pregnancy NEGATIVE (NEGATIVE)
[2023-06-10 00:55] LABS: Alanine Aminotransferase 24 U/L (0-31); Albumin Level 4.3 g/dL (3.5-5.0); Alkaline Phosphatase 71 U/L (39-117); Anion Gap 13 (12-20); Aspartate Amino Transferase 23 U/L (5-31); Bilirubin Total 0.3 mg/dL (0.0-1.0); Blood Urea Nitrogen 8 mg/dL (9-16); Calcium 9.4 mg/dL (8.4-10.2); Carbon Dioxide 25 mmol/L (22-29); Chloride 105 mmol/L (96-108); Creatinine Clr Calc Pharmacy 125.1; Estimated Glomerular Filt Rate > 60; Glucose Random 108 mg/dL (60-115); Sodium 139 mmol/L (135-145); Total Protein 8.1 g/dL (6.5-8.0)
--- NOTE | 2023-06-10 00:55 | ED_ITS ---
HPI - Nausea/Vomiting/Diarrhea General Chief complaint: Abdominal Pain Stated complaint: possible E. coli Time Seen by Provider: 06/10/23 00:26 Source: patient Mode of arrival: ambulatory Limitations: no limitations History of Present Illness HPI Narrative: Patient was healthy complaining of watery stool for last 2 days foul-smelling patient's father admitted in the hospital with C diff colitis windows have a nausea no vomiting no fever no chills patient did not take any antibiotics lately Related Data Home Medications Medication Instructions Recorded Confirmed clindamycin phosphate 1 % topical 1 appl topical DAILY 06/10/22 11/30/22 gel doxycycline hyclate 100 mg 100 mg PO DAILY 06/10/22 11/30/22 tablet,delayed release spironolactone 25 mg tablet 25 mg PO QAM 06/30/22 11/30/22 Previous Rx's Medication Instructions Recorded cholecalciferol (vitamin D3) 125 125 mcg PO DAILY #90 caps 06/19/22 mcg (5,000 unit) capsule cyanocobalamin (vitamin B-12) 500 500 mcg PO DAILY #90 tabs 06/19/22 mcg tablet ferrous sulfate 325 mg (65 mg 325 mg PO DAILY #60 tabs 06/19/22 iron) tablet (FeroSul) thiamine HCl (vitamin B1) 100 mg 100 mg PO DAILY #90 tabs 06/29/22 tablet Allergies Allergy/AdvReac Type Severity Reaction Status Date / Time bee pollen [BEE STINGS] Allergy Severe SWELLING Verified 06/09/23 23:47 amoxicillin [AMOXICILLIN] Allergy Unknown UNKNOWN Verified 06/09/23 23:47 SEASONAL ALLERGIES Allergy Unknown SINUS Uncoded 05/17/23 11:55 CONGESTION PMFSH Past Medical History Surgical History Hx of wisdom tooth extraction Hx of tonsillectomy Family History Family History Mother Arthritis Anemia Father Diabetes High cholesterol Gout Brother No problems noted. Sister No problems noted. Sister No problems noted. Social History Social History Alcohol intake: never Patient Tobacco Use Status: Never used Tobacco Advance Directives: No Advance Directives Information Provided: No Physical Exam 2 Vital Signs: Vital Signs: Last Vital Signs Temp 98.2 F 06/09/23 23:40 Pulse 115 H 06/09/23 23:40 Resp 18 06/09/23 23:40 BP 157/82 H 06/09/23 23:40 Pulse Ox 98 06/09/23 23:40 O2 Del Method Room Air 06/09/23 23:40 BMI result Body Mass Index 47.9 Appearance: Alert. Oriented X3. No acute distress. Eyes: No pallor or icterus ENT: Pharynx normal. Oral Mucosa moist Neck: Normal inspection. Neck supple. CVS: Normal heart rate and rhythm. Pulses normal. Respiratory: No respiratory distress. Equal air entry bilateral, no wheezing/rales/rhonchi Abdomen: Soft and nontender. Bowel sounds are present, no mass palpable, no CVA tenderness Skin: Skin warm and dry. Normal skin color. Normal skin turgor. Extremities: No lower extremity edema. No calf tenderness Neuro: Oriented X 3. No motor deficit. Medications Administered Discontinued Medications Generic Name Dose Route Start Last Admin Trade Name Freq PRN Reason Stop Dose Admin Dicyclomine HCl 20 mg 06/10/23 00:54 06/10/23 01:43 Dicyclomine Hcl 10 Mg Capsule PO 06/10/23 00:55 20 mg ONCE ONE Administration Ondansetron HCl 4 mg 06/10/23 00:54 06/10/23 01:43 Ondansetron Odt 4 Mg Tab.Rapdis TRANSLINGU 06/10/23 00:55 4 mg ONCE ONE Administration Vancomycin HCl 125 mg 06/10/23 00:54 06/10/23 01:43 Vancomycin Hcl 125 Mg Capsule PO 06/10/23 00:55 125 mg ONCE ONE Administration Medical Decision Making Medical Decision Making [facility] Narrative: Patient with acute diarrhea with family member positive for C diff. patient has similar stool color and odor awaiting for the C diff PCR Differential Diagnosis Differential Diagnoses: The differential diagnosis associated with the presentation includes Colitis Lab Data [facility] Lab Attestation statement: I reviewed the patient's lab results. 06/10/23 00:21 06/10/23 00:21 Labs: Lab Results 06/10/23 Range/Units 00:21 WBC 9.8 (4.8-10.8) X10*3/uL RBC 5.12 (4.20-5.50) X10*6/uL Hgb 12.5 (12.0-16.0) g/dl Hct 39.8 (37.0-47.0) % MCV 77.7 L (80.0-98.0) fL MCH 24.4 L (27.0-33.0) pg MCHC 31.4 (31.0-35.0) g/dl RDW 16.9 H (11.0-16.0) % Plt Count 377 (160-400) X10*3/uL MPV 9.8 (9.4-12.3) fL Immature Gran % (Auto) 0.2 (0.0-0.4) % Neut % (Auto) 82.0 H (45-73) % Lymph % (Auto) 12.7 L (20-40) % [place] % (Auto) 3.7 (2-11) % Eos % (Auto) 1.2 (0-4) % Baso % (Auto) 0.2 (0-2) % Lymph # (Auto) 1.3 (1.2-4.9) X10*3/uL [place] # (Auto) 0.4 (0.1-1.2) X10*3/uL Eos # (Auto) 0.1 (0.0-0.4) X10*3/uL Baso # (Auto) 0.0 (0.0-0.2) X10*3/uL Abs Immat Gran (auto) 0.02 (0.00-0.03) X10*3/uL Absolute Neuts (auto) 8.1 (2.0-8.3) x10*3/uL Absolute Nucleated RBC 0.000 (0.0-0.012) X10*3/uL Nucleated RBC % (auto) 0.0 (0.0-0.2) /100WBC Sodium 139 (135-145) mmol/L Potassium 4.0 (3.3-5.1) mmol/L Chloride 105 (96-108) mmol/L Carbon Dioxide 25 (22-29) mmol/L Anion Gap 13 (12-20) BUN 8 L (9-16) mg/dL Creatinine 0.78 (0.5-1.4) mg/dL Estim Creat Clear Calc 125.1 Estimated GFR > 60 Random Glucose 108 (60-115) mg/dL Calcium 9.4 (8.4-10.2) mg/dL Total Bilirubin 0.3 (0.0-1.0) mg/dL AST 23 (5-31) U/L ALT 24 (0-31) U/L Alkaline Phosphatase 71 (39-117) U/L Total Protein 8.1 H (6.5-8.0) g/dL Albumin 4.3 (3.5-5.0) g/dL Urine Color Yellow Urine Appearance Clear Urine pH 6.0 (5.0-9.0) Ur Specific [place] <= 1.005 (1.005-1.025) Urine Protein Negative (Neg-Trace) mg/dL Urine Glucose (UA) Negative (Negative) mg/dL Urine Ketones Negative (Negative) mg/dL Urine Blood Negative (Negative) Urine Nitrite Negative (Negative) Ur Leukocyte Esterase Negative (Negative) Urine RBC 0-2 (0-2) /HPF Urine WBC 0-5 (0-5) /HPF Ur Squamous Epith Cells 0-2 (0-2) /HPF Urine Bacteria None Seen (None Seen) Hyaline Casts 0-2 (0-2) /LPF Urine Test NEGATIVE (NEGATIVE) Influenza Type A (PCR) NEGATIVE (Negative) Influenza Type B (PCR) NEGATIVE (Negative) RSV RNA Qual (PCR) NEGATIVE (Negative) SARS-CoV-2 RNA (RT-PCR) NEGATIVE (Negative) Discharge Plan Discharge Clinical Impression: Diarrhea Patient Disposition: Still a Patient Prescriptions: No Action cyanocobalamin (vitamin B-12) 500 mcg tablet 500 mcg PO DAILY Qty: 90 1RF ferrous sulfate [FeroSul] 325 mg (65 mg iron) tablet 325 mg PO DAILY Qty: 60 0RF cholecalciferol (vitamin D3) 125 mcg (5,000 unit) capsule 125 mcg PO DAILY Qty: 90 0RF thiamine HCl (vitamin B1) 100 mg tablet 100 mg PO DAILY Qty: 90 0RF clindamycin phosphate 1 % gel 1 appl topical DAILY doxycycline hyclate 100 mg tablet,delayed release (DR/EC) 100 mg PO DAILY spironolactone 25 mg tablet 25 mg PO QAM
[2023-06-10 01:05] LABS: Influenza A PCR NEGATIVE (Negative); Influenza B PCR NEGATIVE (Negative); Resp Syncy Virus RNA Qual PCR NEGATIVE (Negative); SARS COV2 PCR INHOUSE NEGATIVE (Negative)
[2023-06-10] MEDS: Ondansetron ODT 4 MG TAB.RAPDIS TRANSLINGU (01:43)
[2023-06-10] MEDS: vancomycin HCL 125 MG CAPSULE PO (01:43)
[2023-06-10] MEDS: Dicyclomine HCl 10 MG CAPSULE 20 MG PO (01:43)
[2023-06-10] MEDS: Acetaminophen 325 MG TABLET 650 MG PO (02:44)
[2023-06-10 02:50] LABS: CDiff Gene PCR NEGATIVE (Negative)
[2023-06-10 03:31] VITALS: BP 114/68; PULSE 107; RESP 20; O2SAT 98
[2023-06-10 04:14] VITALS: PULSE 96; RESP 16; O2SAT 100
[2023-06-10 11:16] LABS: Adenovirus F 40/41 Not Detected (Not Detect.); Astrovirus Not Detected (Not Detect.); Campylobacter Not Detected (Not Detect.); Cryptosporidium Not Detected (Not Detect.); Cyclospora cayetanensis Not Detected (Not Detect.); E. coli EAEC Not Detected (Not Detect.); E. coli EPEC Not Detected (Not Detect.); E. coli ETEC Not Detected (Not Detect.); E. coli STEC Not Detected (Not Detect.); Entamoeba histolytica Not Detected (Not Detect.); Giardia lamblia Not Detected (Not Detect.); Plesiomonas shigelloides Not Detected (Not Detect.); Rotavirus A Not Detected (Not Detect.); Salmonella Not Detected (Not Detect.); Sapovirus Not Detected (Not Detect.); Shigella sp./EIEC Not Detected (Not Detect.); Vibrio Not Detected (Not Detect.); Vibrio Cholerae Not Detected (Not Detect.); Yersinia enterocolitica Not Detected (Not Detect.)
[2023-06-21 11:59] LABS: Norovirus Stool PCR DETECTED
== END 2023-06-10 04:15 | disposition home or self-care (01) ==
PROVIDERS: Internal Medicine; Emergency Provider Student in an Organized Health Care Education/Training Program
DX: R11.2 Nausea with vomiting, unspecified (principal); Z11.52 Encounter for screening for COVID-19; Z20.822 Contact with and (suspected) exposure to COVID-19; Z79.899 Other long term (current) drug therapy
CPT/HCPCS: 0241U; 80053; 81001; 81025; 85025; 87493; 87507; 99284

== ENCOUNTER 2023-11-12 23:18 | Inpatient (IN) | payer OTHER, SELFPAY ==
--- NOTE | ~2023-11-12 | CT_ITS ---
EXAMINATION: CT femur with IV contrast, left INDICATION: concern for deep tissue abscess COMPARISON: None TECHNIQUE: Multidetector volumetric imaging was obtained through the left femur following intravenous administration of 85 mL Omnipaque 350 intravenous contrast. Multiplanar reformatted images in coronal and sagittal orientations were submitted. This CT examination was performed using dose optimization techniques as appropriate, variously including the following: *Automated exposure control *Adjustment of mA and/or kV according to patient size (this includes techniques or standardized protocols for targeted exams where dose is matched to indication/reason for exam; i.e. extremities or head) *Use of iterative reconstruction technique DLP: 322 mGy-cm FINDINGS: Within the skin at the anteromedial aspect of the proximal thigh at the inguinal crease, there is a intradermal collection measuring 4.8 x 1.4 x 2 cm, most consistent with a abscess. There is marked surrounding fat stranding as well as overlying skin thickening. No subcutaneous gas. No involvement of the deep soft tissue planes. Prominent, reactive lymph nodes are present in the left inguinal region. Underlying musculature is unremarkable. Deep fascial planes appear preserved without evidence of inflammation. No acute intrapelvic abnormalities are identified. No free fluid. Normal bone mineralization. Joints appear well-preserved. No appreciable effusions at the left hip and knee. CT/CT femur LT w IV con IMPRESSION: A 4.8 x 1.4 x 2 cm intradermal abscess at the anteromedial aspect of the proximal thigh at the inguinal crease. No extension into the deep fascial planes.
[2023-11-12 23:20] VITALS: BP 132/58; PULSE 84; RESP 20; TEMP 37; O2SAT 99; BMI 47.7
[2023-11-13] VITALS (8 sets, daily range): BP systolic 103–141; BP diastolic 53–80; PULSE 67–93; RESP 14–20; TEMP 36.2–36.9; O2SAT 99–100
--- NOTE | 2023-11-13 06:42 | ED_ITS ---
HPI - General Adult General Chief complaint: Skin/Abscess/Foreign Body Stated complaint: gen med Time Seen by Provider: 11/13/23 06:40 Source: patient Mode of arrival: ambulatory Limitations: no limitations History of Present Illness ED Provider: Cami Langley PA-C HPI narrative: Patient is a 23 year old assigned female at with a history of hidradenitis suppurativa and von willebrand disease, presenting to the emergency department today with a left groin abscess. Patient states that she was seen by a correctional maintenance technician for this left groin abscess and was placed on antibiotics. Patient states that is continuing to get worse with swelling and pain. Patient denies any dizziness, lightheadedness, abdominal pain, nausea, vomiting, fever, chills, blurry vision, double vision, loss of vision, chest pain, difficulty breathing, shortness of breath, back pain, night sweats, pain with urination, increased urinary frequency, increased urinary urgency, blood in her urine or stool, syncope or a near syncopal episode, recent trauma or falls, bowel incontinence, bladder incontinence, or any other complaints at this time. Onset (ago): day(s) Location: left (groin) Severity: moderate Severity scale (1-10): 5 Relieving factors: none Exacerbating factors: movement Associated symptoms: denies other symptoms Treatments prior to arrival: other (antibiotic) Related Data Home Medications ?Medication ?Instructions ?Recorded ?Confirmed clindamycin phosphate 1 % topical 1 appl topical DAILY 06/10/22 11/30/22 gel doxycycline hyclate 100 mg 100 mg PO DAILY 06/10/22 11/30/22 tablet,delayed release spironolactone 25 mg tablet 25 mg PO QAM 06/30/22 11/30/22 Previous Rx's ?Medication ?Instructions ?Recorded cholecalciferol (vitamin D3) 125 125 mcg PO DAILY #90 caps 06/19/22 mcg (5,000 unit) capsule cyanocobalamin (vitamin B-12) 500 500 mcg PO DAILY #90 tabs 06/19/22 mcg tablet ferrous sulfate 325 mg (65 mg 325 mg PO DAILY #60 tabs 06/19/22 iron) tablet (FeroSul) thiamine HCl (vitamin B1) 100 mg 100 mg PO DAILY #90 tabs 06/29/22 tablet Allergies Allergy/AdvReac Type Severity Reaction Status Date / Time bee pollen [BEE STINGS] Allergy Severe SWELLING Verified 11/12/23 23:47 amoxicillin [AMOXICILLIN] Allergy Unknown UNKNOWN Verified 11/12/23 23:47 SEASONAL ALLERGIES Allergy Unknown SINUS Uncoded 05/17/23 11:55 CONGESTION Review of Systems 2 Constitutional: Constitutional: Reports no additional constitutional complaints, Denies chills, Denies fever(s) and Denies night sweats Eyes: Eyes: Reports no additional eye complaints, Denies blurry vision, Denies change in vision, Denies diplopia, Denies eye discharge, Denies loss of vision and Denies eye pain ENT: Denies dizziness Cardiovascular: Cardiovascular: Reports no additional cardiovascular complaints, Denies chest pain, Denies lightheadedness, Denies Loss of Consciousness and Denies dyspnea Respiratory: Respiratory: Reports no additional respiratory complaints and Denies dyspnea Gastrointestinal: Gastrointestinal: Reports no additional gastrointestinal complaints, Denies abdominal pain, Denies melena, Denies hematochezia, Denies change in bowel habits and Denies change in stool character Genitourinary: Genitourinary: Denies hematuria, Denies urinary frequency, Denies dysuria, Denies urinary incontinence, Denies urinary hesitancy and Denies urinary urgency Musculoskeletal: Musculoskeletal: Reports no additional musculoskeletal complaints, Denies numbness and Denies tingling Integumentary/Breasts: Comments: swelling and pain to the left groin Neurologic: Denies dizziness, Denies loss of vision, Denies numbness and Denies tingling Psychiatric: Psychiatric: Reports no additional psychiatric complaints Endocrine: Endocrine: Reports no additional endocrine complaints Hematologic/Lymphatic: Hematologic/Lymphatic: Reports no additional hematologic/lymphatic complaints Allergic/Immunologic: Allergic/Immunologic: Reports no additional allergic/immunologic complaints [facility] Past Medical History Attestation statement: The following information was validated with the patient. Source: old records reviewed and nursing notes reviewed Surgical History Hx of wisdom tooth extraction Hx of tonsillectomy Family History Family History Mother Arthritis Anemia Father Diabetes High cholesterol Gout Brother No problems noted. Sister No problems noted. Sister No problems noted. Social History Social History Alcohol intake: never Patient Tobacco Use Status: Never used Tobacco Smoked in Last 30 Days: No Use of substances other than those prescribed or required for medical reasons: No Advance Directives: No Advance Directives Information Provided: No Physical Exam ED Vital Signs: Vital Signs - 24 hr 11/12/23 23:20 11/13/23 02:48 11/13/23 04:00 Temperature 98.6 F 98.1 F 98.0 F Pulse Rate 84 78 80 Respiratory Rate 20 18 16 Blood Pressure 132/58 L 124/60 103/57 L Pulse Oximetry 99 99 100 Oxygen Delivery Method Room Air Room Air Room Air 11/13/23 06:00 11/13/23 08:23 11/13/23 10:30 Temperature 98.4 F 98.5 F Pulse Rate 85 82 Respiratory Rate 16 20 20 Blood Pressure 111/53 L 123/80 Pulse Oximetry 99 99 Oxygen Delivery Method Room Air Room Air BMI result Body Mass Index 47.7 Const General: cooperative, no acute distress, alert and awake Nutritional Appearance: well nourished Orientation/consciousness: patient oriented x3 Limitations: no limitations HENMT Head: Yes normal to inspection and Yes atraumatic Ears: hearing grossly normal bilaterally and external ears normal General nose exam: Normal external nose present, no nasal discharge noted and no epistaxis Face and sinus: Yes normal facial exam, No abrasion and No laceration Mouth: Normal oral and palatal mucosa present, no drooling and no muffled voice Eyes General: appearance normal, both eyes and all related structures Periorbital: periorbital findings normal Eyelids: Yes eyelids normal Conjunctivae: conjunctivae normal Pupils: Equal, round and reactive pupils present EOM: EOMs intact bilaterally Neck Neck: Yes normal visual inspection, Yes full ROM and Yes no lymphadenopathy Chest Chest palpation & inspection: normal inspection of the chest Resp Effort & Inspection: normal respiratory effort and able to speak in complete sentences GI Inspection: Yes normal to inspection Neuro General: patient oriented x3 and moves all extremities Cranial nerves: Yes Equal, round and reactive pupils present Cognition (Neuro): normal cognition Extrem Other: swelling present to the left upper groin with induration and pain to palpation General: Yes full ROM and Yes capillary refill normal Psych Appearance: grossly normal Mental Status: mental status grossly normal Affect: normal affect Attitude: cooperative Thought process: Normal thought process present Thought content: Normal thought content present Insight: Good insight present (Psych) Medications Administered Discontinued Medications Generic Name Dose Route Start Last Admin Trade Name Dania PRN Reason Stop Dose Admin Iohexol 85 ml 11/13/23 09:15 11/13/23 09:16 Iohexol 350 Mg/Ml 100 Ml Infus..Btl IV 11/13/23 09:16 85 ml ONCE ONE Administration Lidocaine HCl 10 ml 11/13/23 10:18 11/13/23 10:25 Lidocaine Hcl 1 % Mpf 5 Ml Vial SUBCUT 11/13/23 10:19 10 ml ONCE ONE Administration Morphine Sulfate 4 mg 11/13/23 10:18 11/13/23 10:30 Morphine Sulfate 4 Mg/Ml Cartridge IVPUSH 11/13/23 10:19 4 mg ONCE ONE Administration Protocol Ondansetron HCl 4 mg 11/13/23 10:21 11/13/23 10:25 Ondansetron Hcl 4 Mg/2 Ml Vial IVPUSH 11/13/23 10:22 4 mg ONCE ONE Administration Medical Decision Making Medical Decision Making MDM Narrative: Patient is a 23 year old assigned female at with a history of hidradenitis suppurativa and von willebrand disease presenting to the emergency department today with left groin swelling and pain. Patient's physical exam was as noted in the physical exam portion of this note. Patient's blood work showed an elevated WBC count of 11.3, ESR 29, and CRP of 5.12. Patient's left femur CT showed a 4.8 x 1.4 x 2cm abscess in the inguinal crease. Patient's clinical presentation is not consistent with sepsis (@1115). I spoke to Dr. Ozuna who came an examined the patient and then performed an incision and drainage on the area. He recommended admission to his service. I explained my physical exam findings as well as all test results to the patient. I answered all questions asked by the patient. Patient verbalized agreement and understanding with this treatment plan and admission. Differential Diagnosis Differential Diagnoses: The differential diagnosis associated with the presentation includes Cellulitis Abscess Admission/Observation Consideration of admission/observation: Escalation of care including admission/observation considered Patient admitted. Consult Healthcare Provider Management of the patient was discussed with: Director Alumni Relations (spoke to the general surgeon as noted in the MDM Rationale portion of this note) Lab Data MDM Lab Attestation statement: I reviewed the patient's lab results. My interpretation of these results are in the MDM Rationale portion of this note. 11/13/23 07:40 11/13/23 07:40 Labs: Lab Results 11/13/23 Range/Units 07:40 WBC 11.3 H (4.8-10.8) X10*3/uL RBC 4.50 (4.20-5.50) X10*6/uL Hgb 11.3 L (12.0-16.0) g/dl Hct 35.6 L (37.0-47.0) % MCV 79.1 L (80.0-98.0) fL MCH 25.1 L (27.0-33.0) pg MCHC 31.7 (31.0-35.0) g/dl RDW 14.7 (11.0-16.0) % Plt Count 393 (160-400) X10*3/uL MPV 9.8 (9.4-12.3) fL Immature Gran % (Auto) 0.4 (0.0-0.4) % Neut % (Auto) 63.4 (45-73) % Lymph % (Auto) 28.5 (20-40) % [place] % (Auto) 5.7 (2-11) % Eos % (Auto) 1.6 (0-4) % Baso % (Auto) 0.4 (0-2) % Lymph # (Auto) 3.2 (1.2-4.9) X10*3/uL [place] # (Auto) 0.6 (0.1-1.2) X10*3/uL Eos # (Auto) 0.2 (0.0-0.4) X10*3/uL Baso # (Auto) 0.0 (0.0-0.2) X10*3/uL Abs Immat Gran (auto) 0.04 H (0.00-0.03) X10*3/uL Absolute Neuts (auto) 7.1 (2.0-8.3) x10*3/uL Absolute Nucleated RBC 0.000 (0.0-0.012) X10*3/uL Nucleated RBC % (auto) 0.0 (0.0-0.2) /100WBC ESR 29 H (0-20) MM/HR Sodium 139 (135-145) mmol/L Potassium 4.3 (3.3-5.1) mmol/L Chloride 104 (96-108) mmol/L Carbon Dioxide 26 (22-29) mmol/L Anion Gap 13 (12-20) BUN 10 (9-16) mg/dL Creatinine 0.75 (0.5-1.4) mg/dL Estim Creat Clear Calc 128.7 Estimated GFR > 60 Random Glucose 112 (60-115) mg/dL Calcium 9.4 (8.4-10.2) mg/dL Total Bilirubin 0.4 (0.0-1.0) mg/dL AST 20 (5-31) U/L ALT 21 (0-31) U/L Alkaline Phosphatase 69 (39-117) U/L C-Reactive Protein 5.12 H (< or = 0.50) mg/dL Total Protein 7.7 (6.5-8.0) g/dL Albumin 4.1 (3.5-5.0) g/dL Beta HCG, Quant < 2 mIU/mL Independent Interpretation I performed an independent interpretation of an: CT Scan Interpretation: My interpretation is in agreement with the radiologist's impression of this imaging study. - EXAMINATION: CT femur with IV contrast, left INDICATION: concern for deep tissue abscess COMPARISON: None TECHNIQUE: Multidetector volumetric imaging was obtained through the left femur following intravenous administration of 85 mL Omnipaque 350 intravenous contrast. Multiplanar reformatted images in coronal and sagittal orientations were submitted. This CT examination was performed using dose optimization techniques as appropriate, variously including the following: *Automated exposure control *Adjustment of mA and/or kV according to patient size (this includes techniques or standardized protocols for targeted exams where dose is matched to indication/reason for exam; i.e. extremities or head) *Use of iterative reconstruction technique DLP: 322 mGy-cm FINDINGS: Within the skin at the anteromedial aspect of the proximal thigh at the inguinal crease, there is a intradermal collection measuring 4.8 x 1.4 x 2 cm, most consistent with a abscess. There is marked surrounding fat stranding as well as overlying skin thickening. No subcutaneous gas. No involvement of the deep soft tissue planes. Prominent, reactive lymph nodes are present in the left inguinal region. Underlying musculature is unremarkable. Deep fascial planes appear preserved without evidence of inflammation. No acute intrapelvic abnormalities are identified. No free fluid. Normal bone mineralization. Joints appear well-preserved. No appreciable effusions at the left hip and knee. CT/CT femur LT w IV con IMPRESSION: A 4.8 x 1.4 x 2 cm intradermal abscess at the anteromedial aspect of the proximal thigh at the inguinal crease. No extension into the deep fascial planes. Dictated By: Onel Ba MD Signed By: Electronically signed by Onel Ba MD 11/13/23 0970 Radiology Impression Discussion of test interpretation with radiology: I have reviewed the radiologist's reading. Critical Care Time Critical Care Time Critical Care Time: Yes Total Critical Care Time: 48 Attestation: I spent 48 minutes of Critical Care Time with this patient. This does not include time spent on separately reported billable procedures. Discharge Plan Discharge Clinical Impression: Cellulitis, Abscess Patient Disposition: Admitted As Inpatient Print Language: Lao
[2023-11-13 07:45] LABS: MANUAL DIFF FLAG NO
[2023-11-13 07:46] LABS: Basophils Percent Auto 0.4 % (0-2); Eosinophils Absolute Auto 0.2 X10*3/uL (0.0-0.4); Eosinophils Percent Auto 1.6 % (0-4); Hematocrit 35.6 % (37.0-47.0); Hemoglobin 11.3 g/dl (12.0-16.0); Imm Gran Abs Auto 0.04 X10*3/uL (0.00-0.03); Imm Gran Pct Auto 0.4 % (0.0-0.4); Lymphocytes Absolute Auto 3.2 X10*3/uL (1.2-4.9); Lymphocytes Percent Auto 28.5 % (20-40); Mean Corpuscular HGB Conc 31.7 g/dl (31.0-35.0); Mean Corpuscular Hemoglobin 25.1 pg (27.0-33.0); Mean Corpuscular Volume 79.1 fL (80.0-98.0); Mean Platelet Volume 9.8 fL (9.4-12.3); Monocytes Absolute Auto 0.6 X10*3/uL (0.1-1.2); Monocytes Percent Auto 5.7 % (2-11); Neutrophils Absolute Auto 7.1 x10*3/uL (2.0-8.3); Neutrophils Percent Auto 63.4 % (45-73); Platelet Count 393 X10*3/uL (160-400); Red Cell Distribution Width 14.7 % (11.0-16.0); White Blood Count 11.3 X10*3/uL (4.8-10.8)
[2023-11-13 08:00] LABS: Alanine Aminotransferase 21 U/L (0-31); Albumin Level 4.1 g/dL (3.5-5.0); Alkaline Phosphatase 69 U/L (39-117); Anion Gap 13 (12-20); Aspartate Amino Transferase 20 U/L (5-31); Bilirubin Total 0.4 mg/dL (0.0-1.0); Blood Urea Nitrogen 10 mg/dL (9-16); C Reactive Protein 5.12 mg/dL (< or = 0.50); Calcium 9.4 mg/dL (8.4-10.2); Carbon Dioxide 26 mmol/L (22-29); Chloride 104 mmol/L (96-108); Creatinine Clr Calc Pharmacy 128.7; Estimated Glomerular Filt Rate > 60; Glucose Random 112 mg/dL (60-115); Potassium 4.3 mmol/L (3.3-5.1); Sodium 139 mmol/L (135-145); Total Protein 7.7 g/dL (6.5-8.0)
[2023-11-13 08:26] LABS: Erythrocyte Sedimentation Rate 29 MM/HR (0-20)
[2023-11-13 09:02] LABS: HCG Quantitative < 2 mIU/mL
[2023-11-13] MEDS: iohexoL 350 MG/ML 100 ML INFUS..BTL 85 ML IV (09:16)
[2023-11-13] MEDS: ondansetron HCL 4 MG/2 ML VIAL IVPUSH (10:25)
[2023-11-13] MEDS: Lidocaine HCl 1 % MPF 5 ML VIAL 10 ML SUBCUT (10:25)
[2023-11-13] MEDS: Morphine Sulfate 4 MG/ML CARTRIDGE IVPUSH (10:30)
--- NOTE | 2023-11-13 11:18 | P.HPGS_ITS ---
History of Present Illness History of Present Illness Date of Service: 11/14/23 Chief complaint: Groin abscess right Narrative: Mercy Davidson is a 23 year old female here in the ER because of left groin swelling and pain. She says this started about 2 days ago. She says that this has been worsening. She denies any fever or chills She admits to having multiple abscesses in the past with hidradenitis. She has had I and D's on different parts of her body since she was young. She also has Von Willebrand's disease. She unfortunately did not see any primary care physician, and according to her parents, she is medically noncompliant. She denies any trauma or insect bite to the area. Review of Systems Constitutional: Constitutional: Denies chills and Denies fever(s) ENT: Comments: Has frequent nosebleeds Cardiovascular: Cardiovascular: Denies chest pain, Denies dyspnea and Denies dyspnea on exertion Respiratory: Respiratory: Denies cough, Denies dyspnea and Denies dyspnea on exertion Gastrointestinal: Gastrointestinal: Denies hematochezia and Denies change in bowel habits Genitourinary: Genitourinary: Denies hematuria Musculoskeletal: Musculoskeletal: Denies back pain and Denies limited range of motion Neurologic: Denies focal weakness and Denies convulsions Psychiatric: Psychiatric: Denies depression and Denies mood swings PMFSH Past Medical History Medical History (Updated 11/13/23 @ 11:21 by Missael Ozuna MD) Abscess of left groin Family History Family History Mother Arthritis Anemia Father Diabetes High cholesterol Gout Brother No problems noted. Sister No problems noted. Sister No problems noted. Surgical History Surgical History Hx of wisdom tooth extraction Hx of tonsillectomy Social History Social History Household Members: Family Housing: House Do you presently have visiting nurse or other home services: No Alcohol intake: never Patient Tobacco Use Status: Never used Tobacco Substance Use Type: Other Meds Allergies Allergy/AdvReac Type Severity Reaction Status Date / Time bee pollen [BEE STINGS] Allergy Severe SWELLING Verified 11/12/23 23:47 amoxicillin [AMOXICILLIN] Allergy Unknown UNKNOWN Verified 11/12/23 23:47 SEASONAL ALLERGIES Allergy Unknown SINUS Uncoded 05/17/23 11:55 CONGESTION Active Medications: Current Medications Acetaminophen (Acetaminophen 325 Mg Tablet) 650 mg PO Q6H PRN PRN Reason: Pain, Mild (Pain Scale 1-3), fever or headache Calcium Carbonate (Calcium Carbonate 750 Mg Tab.Chew) 750 mg PO Q4H PRN PRN Reason: Heartburn Vancomycin HCl 1,000 mg/ (Sodium Chloride) 270 mls @ 270 mls/hr IV Q8H SARAH Magnesium Hydroxide (Milk Of Magnesia 30 Ml Oral.Susp) 30 ml PO DAILY PRN PRN Reason: Constipation Melatonin (Melatonin 3 Mg Tablet) 6 mg PO BEDTIME PRN PRN Reason: Insomnia Pharmacy Consult (Consult Rx Vancomycin Dosing) 1 each MISCELLANE DAILY PRN PRN Reason: Consult order Sodium Chloride (0.9 % Sodium Chloride Flush 3 Ml Syringe) 3 ml IVFLUSH QSHIFT SARAH Home Medications ?Medication ?Instructions ?Recorded ?Confirmed ?Last Taken ?Type No Known Home Meds 11/13/23 11/13/23 Unknown History Physical Exam Vital Signs: Vital Signs: Last Vital Signs Temp 98.5 F 11/13/23 08:23 Pulse 82 11/13/23 08:23 Resp 20 11/13/23 10:30 BP 123/80 11/13/23 08:23 Pulse Ox 99 11/13/23 08:23 O2 Del Method Room Air 11/13/23 08:23 BMI result Body Mass Index 47.7 Const: Other: Morbidly obese General: comfortable and no acute distress Orientation/consciousness: patient oriented x3 Neck: Neck: Yes no lymphadenopathy Resp: Auscultation: clear to auscultation bilaterally Cardio: Rhythm: regular rhythm GI: Palpation (GI): Soft to palpation, nontender and no guarding Neuro: General: patient oriented x3 Extrem: Other: Left groin area near the crease is note of a fluctuant mass about 3 cm, with surrounding induration extending to the proximal thigh anteromedially with cellulitic changes, tenderness Results Results Labs: Short CBC 11/13/23 Range/Units 07:40 WBC 11.3 H (4.8-10.8) X10*3/uL Hgb 11.3 L (12.0-16.0) g/dl Hct 35.6 L (37.0-47.0) % Plt Count 393 (160-400) X10*3/uL BMP 11/13/23 07:40 Sodium 139 Potassium 4.3 Chloride 104 Carbon Dioxide 26 BUN 10 Creatinine 0.75 Calcium 9.4 Liver Function 11/13/23 Range/Units 07:40 Total Bilirubin 0.4 (0.0-1.0) mg/dL AST 20 (5-31) U/L ALT 21 (0-31) U/L Alkaline Phosphatase 69 (39-117) U/L Albumin 4.1 (3.5-5.0) g/dL Laboratory Results WBC 11.3 X10*3/uL (4.8-10.8) H 11/13/23 07:40 RBC 4.50 X10*6/uL (4.20-5.50) 11/13/23 07:40 Hgb 11.3 g/dl (12.0-16.0) L 11/13/23 07:40 Hct 35.6 % (37.0-47.0) L 11/13/23 07:40 MCV 79.1 fL (80.0-98.0) L 11/13/23 07:40 MCH 25.1 pg (27.0-33.0) L 11/13/23 07:40 MCHC 31.7 g/dl (31.0-35.0) 11/13/23 07:40 RDW 14.7 % (11.0-16.0) 11/13/23 07:40 Plt Count 393 X10*3/uL (160-400) 11/13/23 07:40 MPV 9.8 fL (9.4-12.3) 11/13/23 07:40 Immature Gran % (Auto) 0.4 % (0.0-0.4) 11/13/23 07:40 Neut % (Auto) 63.4 % (45-73) 11/13/23 07:40 Lymph % (Auto) 28.5 % (20-40) 11/13/23 07:40 [place] % (Auto) 5.7 % (2-11) 11/13/23 07:40 Eos % (Auto) 1.6 % (0-4) 11/13/23 07:40 Baso % (Auto) 0.4 % (0-2) 11/13/23 07:40 Lymph # (Auto) 3.2 X10*3/uL (1.2-4.9) 11/13/23 07:40 [place] # (Auto) 0.6 X10*3/uL (0.1-1.2) 11/13/23 07:40 Eos # (Auto) 0.2 X10*3/uL (0.0-0.4) 11/13/23 07:40 Baso # (Auto) 0.0 X10*3/uL (0.0-0.2) 11/13/23 07:40 Abs Immat Gran (auto) 0.04 X10*3/uL (0.00-0.03) H 11/13/23 07:40 Absolute Neuts (auto) 7.1 x10*3/uL (2.0-8.3) 11/13/23 07:40 Absolute Nucleated RBC 0.000 X10*3/uL (0.0-0.012) 11/13/23 07:40 Nucleated RBC % (auto) 0.0 /100WBC (0.0-0.2) 11/13/23 07:40 ESR 29 MM/HR (0-20) H 11/13/23 07:40 Sodium 139 mmol/L (135-145) 11/13/23 07:40 Potassium 4.3 mmol/L (3.3-5.1) 11/13/23 07:40 Chloride 104 mmol/L (96-108) 11/13/23 07:40 Carbon Dioxide 26 mmol/L (22-29) 11/13/23 07:40 Anion Gap 13 (12-20) 11/13/23 07:40 BUN 10 mg/dL (9-16) 11/13/23 07:40 Creatinine 0.75 mg/dL (0.5-1.4) 11/13/23 07:40 Estim Creat Clear Calc 128.7 11/13/23 07:40 Estimated GFR > 60 11/13/23 07:40 Random Glucose 112 mg/dL (60-115) 11/13/23 07:40 Calcium 9.4 mg/dL (8.4-10.2) 11/13/23 07:40 Total Bilirubin 0.4 mg/dL (0.0-1.0) 11/13/23 07:40 AST 20 U/L (5-31) 11/13/23 07:40 ALT 21 U/L (0-31) 11/13/23 07:40 Alkaline Phosphatase 69 U/L (39-117) 11/13/23 07:40 C-Reactive Protein 5.12 mg/dL (< or = 0.50) H 11/13/23 07:40 Total Protein 7.7 g/dL (6.5-8.0) 11/13/23 07:40 Albumin 4.1 g/dL (3.5-5.0) 11/13/23 07:40 Beta HCG, Quant < 2 mIU/mL 11/13/23 07:[address] 11/13/23 09:14 IMPRESSION: A 4.8 x 1.4 x 2 cm intradermal abscess at the anteromedial aspect of the proximal thigh at the inguinal crease. No extension into the deep fascial planes. Assessment and Plan (1) Abscess of left groin: Status: Acute She has a left groin abscess and on the CT scan this seems about be 4.8 cm on widest dimension and located intradermally. I proceeded to do an I and D at bedside. She tolerated this well. Large amounts of pus was drained In view of her cellulitic changes and induration, I will admit her for IV antibiotics I explained the plan to the patient and her family and they are comfortable with this She is hemodynamically stable and not septic looking. (2) Hidradenitis suppurativa: Status: Acute She has had multiple other similar abscess in the past in various areas of her body. She has a stigmata of hidradenitis suppurativa and this is the likely etiology of her abscess on the left groin. Quality Stroke Does the patient have a stroke diagnosis?: No VTE Prior VTE?: No VTE Risk Level:: Medical - low VTE Device Contraindication: Treatment Not Indicated VTE Drug Contraindication: Treatment Not Indicated Procedures Date of Service Date of Service: 11/14/23 Abscess I/D Site: other (Left groin) Side (if applicable): left Sedation/analgesia: none Anesthetic used: lidocaine 1% Amount of fluid (mL): 4 Irrigation: No Additional comments: No immediate complications, and minimal blood loss
--- NOTE | 2023-11-13 12:09 | PHA.PROG ---
Admission Date/Time: November 13, 2023 11:14 Indication: skin Weight in k.048 kg Adjusted body weight in Kg: [place] body weight in Kg: Obesity Dosing Indication % IBW: Serum Creatinine - Last 168 Hours 11/13/23 07:40 Creatinine 0.75 Estimated CrCl and GFR - Last 168 Hours 11/13/23 07:40 Estim Creat Clear Calc 128.7 Estimated GFR > 60 Vancomycin Loading Dose: 2000mg Current Vancomycin Dosing Regimen: 1250mg Q12h Vancomycin Monitoring using AUC goal of 400 - 600 range with trough as surrogate marker: 534mg/L Date and Time for next Vancomycin Level to be drawn: 11/24 @2100 Pharmacist Comments on Vancomycin Plan: Predicted trough of 14.3mg/L; obese model being used Vancomycin dosing will take advantage of [employer] as a clinical decision support tool that uses Bayesian modeling to calculate individual patient's pharmacokinetic parameters and forecast the patient's drug concentration time course with the target goal AUC 24 range of 400 - 600 mg/L/hr.
--- NOTE | 2023-11-13 13:20 | PC.NURSE ---
Patient rang call delgado stating that she felt itchy and lips were swollen. vanco stopped. No throat or tongue swelling noted. 99% on RA. vss
--- NOTE | 2023-11-13 13:21 | PC.NURSE ---
provider aware of lip swelling, stating will come see patient later
--- NOTE | 2023-11-13 14:01 | PC.NURSE ---
97% on RA seen by Dr. Ozuna, no further swelling noted
--- NOTE | 2023-11-13 14:27 | PM.EVENT ---
Event Note Date of Service: 11/13/23 Event Note: Patient is seen in the afternoon Apparently had some slips swelling with vancomycin We will DC vancomycin switched to IV doxycycline Patient also has allergies to amoxicillin by history so I can not give Zosyn at this time Will follow up on wound cultures Explained above to patient Time Spent With Patient Time: Total time managing care of this patient today ____ minutes.
[2023-11-13] MEDS: Doxycycline Hyclate 100 MG in 0.9 % Sodium Chloride 250 ML 166.67 MG IV (14:49)
[2023-11-13] MEDS: Acetaminophen 325 MG TABLET 650 MG PO (15:11)
--- NOTE | 2023-11-13 16:05 | PHA.MEDREC ---
Pharmacy Consult ? Medication Reconciliation Pharmacy has completed the medication reconciliation.
[2023-11-13] MEDS: oxyCODONE HCl Immed Release 5 MG TABLET 10 MG PO (19:30)
[2023-11-13] MEDS: 0.9 % Sodium Chloride Flush 3 ML SYRINGE IVFLUSH (22:05)
[2023-11-14] MEDS: ondansetron HCL 4 MG/2 ML VIAL IVPUSH ×2 (01:46→15:09)
[2023-11-14] MEDS: Doxycycline Hyclate 100 MG in 0.9 % Sodium Chloride 250 ML 166.67 MG IV ×2 (01:47→14:24)
[2023-11-14 04:00] VITALS: BP 108/59; PULSE 64; RESP 16; TEMP 36.6; O2SAT 98
[2023-11-14 07:05] LABS: Hematocrit 32.8 % (37.0-47.0); Hemoglobin 10.3 g/dl (12.0-16.0); Mean Corpuscular HGB Conc 31.4 g/dl (31.0-35.0); Mean Corpuscular Hemoglobin 24.9 pg (27.0-33.0); Mean Corpuscular Volume 79.2 fL (80.0-98.0); Mean Platelet Volume 9.9 fL (9.4-12.3); Platelet Count 377 X10*3/uL (160-400); Red Blood Count 4.14 X10*6/uL (4.20-5.50); Red Cell Distribution Width 14.8 % (11.0-16.0); White Blood Count 9.5 X10*3/uL (4.8-10.8)
[2023-11-14 07:12] LABS: Anion Gap 11 (12-20); Blood Urea Nitrogen 7 mg/dL (9-16); Calcium 9.1 mg/dL (8.4-10.2); Carbon Dioxide 25 mmol/L (22-29); Chloride 105 mmol/L (96-108); Estimated Glomerular Filt Rate > 60; Glucose Random 105 mg/dL (60-115); Potassium 3.9 mmol/L (3.3-5.1); Sodium 137 mmol/L (135-145)
[2023-11-14 07:53] VITALS: BP 114/58; PULSE 75; RESP 16; TEMP 36.3; O2SAT 97
[2023-11-14] MEDS: 0.9 % Sodium Chloride Flush 3 ML SYRINGE IVFLUSH ×2 (08:31→21:42)
[2023-11-14] MEDS: Acetaminophen 325 MG TABLET 650 MG PO ×2 (08:37→18:32)
--- NOTE | 2023-11-14 09:58 | P.PNGS_ITS ---
Subjective Subjective Date of Service: 11/14/23 Interval history: Some pain on I&D site No fever Physical Exam 2 Vital Signs: Vital Signs: Last Vital Signs Temp 97.4 F 11/14/23 07:53 Pulse 75 11/14/23 07:53 Resp 16 11/14/23 07:53 BP 114/58 L 11/14/23 07:53 Pulse Ox 97 11/14/23 07:53 O2 Del Method Room Air 11/14/23 07:53 BMI result Body Mass Index 47.7 Const: Other: Morbidly obese General: comfortable and no acute distress Resp: Effort & Inspection: normal respiratory effort Cardio: Rate: regular rate GI: Palpation (GI): Soft to palpation Skin: Other: Left groin I&D site clean, much less induration, no active discharge, still with some redness surrounding the area Objective Data Active Medications Acetaminophen (Acetaminophen 325 Mg Tablet) 650 mg PO Q6H PRN PRN Reason: Pain, Mild (Pain Scale 1-3), fever or headache Last Admin: 11/14/23 08:37 Dose: 650 mg Documented By: SEBASTIAN Calcium Carbonate (Calcium Carbonate 750 Mg Tab.Chew) 750 mg PO Q4H PRN PRN Reason: Heartburn Doxycycline Hyclate 100 mg/ (Sodium Chloride) 250 mls @ 166.67 mls/hr IV Q12H [facility] Last Infusion: 11/14/23 03:17 Dose: Infused Documented By: ALLISON Magnesium Hydroxide (Milk Of Magnesia 30 Ml Oral.Susp) 30 ml PO DAILY PRN PRN Reason: Constipation Melatonin (Melatonin 3 Mg Tablet) 6 mg PO BEDTIME PRN PRN Reason: Insomnia Ondansetron HCl (Ondansetron Hcl 4 Mg/2 Ml Vial) 4 mg IVPUSH Q6H PRN PRN Reason: Nausea Last Admin: 11/14/23 01:46 Dose: 4 mg Documented By: ALLISON Oxycodone HCl (Oxycodone Hcl Immed Release 5 Mg Tablet) 10 mg PO Q4H PRN PRN Reason: Pain, Severe (Pain Scale 7-10) Last Admin: 11/13/23 19:30 Dose: 10 mg Documented By: ALLISON Sodium Chloride (0.9 % Sodium Chloride Flush 3 Ml Syringe) [facility] Last Admin: 11/14/23 08:31 Dose: 3 ml Documented By: SEBASTIAN Labs 11/14/23 06:18 11/14/23 06:18 Labs: Laboratory Results - last 24 hr 11/14/23 06:18 MCV 79.2 L MCH 24.9 L MCHC 31.4 RDW 14.8 Plt Count 377 MPV 9.9 Absolute Nucleated RBC 0.000 Nucleated RBC % (auto) 0.0 Anion Gap 11 L Estim Creat Clear Calc 138.0 Estimated GFR > 60 Random Glucose 105 Calcium 9.1 Laboratory Results WBC 9.5 X10*3/uL (4.8-10.8) 11/14/23 06:18 RBC 4.14 X10*6/uL (4.20-5.50) L 11/14/23 06:18 Hgb 10.3 g/dl (12.0-16.0) L 11/14/23 06:18 Hct 32.8 % (37.0-47.0) L 11/14/23 06:18 MCV 79.2 fL (80.0-98.0) L 11/14/23 06:18 MCH 24.9 pg (27.0-33.0) L 11/14/23 06:18 MCHC 31.4 g/dl (31.0-35.0) 11/14/23 06:18 RDW 14.8 % (11.0-16.0) 11/14/23 06:18 Plt Count 377 X10*3/uL (160-400) 11/14/23 06:18 MPV 9.9 fL (9.4-12.3) 11/14/23 06:18 Immature Gran % (Auto) 0.4 % (0.0-0.4) 11/13/23 07:40 Neut % (Auto) 63.4 % (45-73) 11/13/23 07:40 Lymph % (Auto) 28.5 % (20-40) 11/13/23 07:40 [place] % (Auto) 5.7 % (2-11) 11/13/23 07:40 Eos % (Auto) 1.6 % (0-4) 11/13/23 07:40 Baso % (Auto) 0.4 % (0-2) 11/13/23 07:40 Lymph # (Auto) 3.2 X10*3/uL (1.2-4.9) 11/13/23 07:40 [place] # (Auto) 0.6 X10*3/uL (0.1-1.2) 11/13/23 07:40 Eos # (Auto) 0.2 X10*3/uL (0.0-0.4) 11/13/23 07:40 Baso # (Auto) 0.0 X10*3/uL (0.0-0.2) 11/13/23 07:40 Abs Immat Gran (auto) 0.04 X10*3/uL (0.00-0.03) H 11/13/23 07:40 Absolute Neuts (auto) 7.1 x10*3/uL (2.0-8.3) 11/13/23 07:40 Absolute Nucleated RBC 0.000 X10*3/uL (0.0-0.012) 11/14/23 06:18 Nucleated RBC % (auto) 0.0 /100WBC (0.0-0.2) 11/14/23 06:18 ESR 29 MM/HR (0-20) H 11/13/23 07:40 Sodium 137 mmol/L (135-145) 11/14/23 06:18 Potassium 3.9 mmol/L (3.3-5.1) 11/14/23 06:18 Chloride 105 mmol/L (96-108) 11/14/23 06:18 Carbon Dioxide 25 mmol/L (22-29) 11/14/23 06:18 Anion Gap 11 (12-20) L 11/14/23 06:18 BUN 7 mg/dL (9-16) L 11/14/23 06:18 Creatinine 0.70 mg/dL (0.5-1.4) 11/14/23 06:18 Estim Creat Clear Calc 138.0 11/14/23 06:18 Estimated GFR > 60 11/14/23 06:18 Random Glucose 105 mg/dL (60-115) 11/14/23 06:18 Calcium 9.1 mg/dL (8.4-10.2) 11/14/23 06:18 Total Bilirubin 0.4 mg/dL (0.0-1.0) 11/13/23 07:40 AST 20 U/L (5-31) 11/13/23 07:40 ALT 21 U/L (0-31) 11/13/23 07:40 Alkaline Phosphatase 69 U/L (39-117) 11/13/23 07:40 C-Reactive Protein 5.12 mg/dL (< or = 0.50) H 11/13/23 07:40 Total Protein 7.7 g/dL (6.5-8.0) 11/13/23 07:40 Albumin 4.1 g/dL (3.5-5.0) 11/13/23 07:40 Beta HCG, Quant < 2 mIU/mL 11/13/23 07:[address] 11/13/23 09:14 IMPRESSION: A 4.8 x 1.4 x 2 cm intradermal abscess at the anteromedial aspect of the proximal thigh at the inguinal crease. No extension into the deep fascial planes. Microbiology Microbiology Results: Microbiology 11/13/23 12:33 Gram Stain - Final Groin, Left Procedures Date of Service Date of Service: 11/14/23 Progress Note: A&P Assessment and plan (1) Abscess of left groin: Status: Acute Assessment and Plan: Status post I&D Much less induration but still with some redness On IV doxycycline Abscess likely from hidradenitis suppurativa Gm stain shows Gram-positive cocci, Gram-negative rods Await cultures Patient has allergies to amoxicillin and had reaction to vancomycin I told the patient that if there is any worsening or non improvement, may need to take her to the OR for further I and D or debridement Time Spent With Patient Time: Total time managing care of this patient today ____ minutes. Quality Stroke Does the patient have a stroke diagnosis?: No VTE Prior VTE?: No VTE Risk Level:: Medical - low VTE Device Contraindication: Treatment Not Indicated VTE Drug Contraindication: Treatment Not Indicated
[2023-11-14] MEDS: oxyCODONE HCl Immed Release 5 MG TABLET 10 MG PO ×2 (11:12→21:40)
[2023-11-14 15:29] VITALS: BP 133/73; PULSE 66; RESP 16; TEMP 36.4; O2SAT 99
--- NOTE | 2023-11-14 16:12 | MHC.CM.PN ---
PT REPORTS SHE LIVES WITH HER MOTHER, WHO WAS AT BEDSIDE PT IS INDEPENDENT WITH CARE AND HAS NO DME SHE ALSO HAS NO PCP SINCE LEAVING PEDIATRIC PROVIDER, LIST PROVIDED PT DECLINES TO COMPLETE A HCP DCP: HOME NO SERVICES MOTHER TO TRANSPORT
[2023-11-14 19:51] VITALS: BP 129/56; PULSE 80; RESP 20; TEMP 36.4; O2SAT 99
[2023-11-14] MEDS: Melatonin 3 MG TABLET 6 MG PO (21:40)
[2023-11-15] MEDS: Doxycycline Hyclate 100 MG in 0.9 % Sodium Chloride 250 ML 166.67 MG IV ×2 (01:33→13:43)
--- NOTE | 2023-11-15 02:29 | PC.NURSE ---
Pt sleeping at this time, respirations even an non-labored, no apparent distress noted. No episodes of N/V/dizziness, at this time, Call delgado within reach.
[2023-11-15 03:40] VITALS: BP 120/78; PULSE 68; RESP 20; TEMP 36.3; O2SAT 98
[2023-11-15 08:00] VITALS: BP 120/66; PULSE 67; RESP 16; TEMP 36.4; O2SAT 97
--- NOTE | 2023-11-15 08:14 | P.PNGS_ITS ---
Subjective Subjective Date of Service: 11/15/23 Interval history: No fever Says she still has pain on the I&D site Physical Exam 2 Vital Signs: Vital Signs: Last Vital Signs Temp 97.3 F 11/15/23 03:40 Pulse 68 11/15/23 03:40 Resp 20 11/15/23 03:40 BP 120/78 11/15/23 03:40 Pulse Ox 98 11/15/23 03:40 O2 Del Method Room Air 11/15/23 03:40 BMI result Body Mass Index 47.7 Const: General: comfortable and no acute distress Resp: Effort & Inspection: normal respiratory effort Cardio: Rate: regular rate GI: Palpation (GI): Soft to palpation Skin: Other: Much less redness surrounding the I&D site, induration seems resolved, I&D site clean, scanty discharge She points to an area of small induration in the right axilla, nonfluctuant, no cellulitis, about 1 cm in diameter Objective Data Active Medications Acetaminophen (Acetaminophen 325 Mg Tablet) 650 mg PO Q6H PRN PRN Reason: Pain, Mild (Pain Scale 1-3), fever or headache Last Admin: 11/14/23 18:32 Dose: 650 mg Documented By: SEBASTIAN Calcium Carbonate (Calcium Carbonate 750 Mg Tab.Chew) 750 mg PO Q4H PRN PRN Reason: Heartburn Doxycycline Hyclate 100 mg/ (Sodium Chloride) 250 mls @ 166.67 mls/hr IV Q12H [facility] Last Infusion: 11/15/23 03:04 Dose: Infused Documented By: ALLISON Magnesium Hydroxide (Milk Of Magnesia 30 Ml Oral.Susp) 30 ml PO DAILY PRN PRN Reason: Constipation Melatonin (Melatonin 3 Mg Tablet) 6 mg PO BEDTIME PRN PRN Reason: Insomnia Last Admin: 11/14/23 21:40 Dose: 6 mg Documented By: ALLISON Ondansetron HCl (Ondansetron Hcl 4 Mg/2 Ml Vial) 4 mg IVPUSH Q6H PRN PRN Reason: Nausea Last Admin: 11/14/23 15:09 Dose: 4 mg Documented By: SEBASTIAN Oxycodone HCl (Oxycodone Hcl Immed Release 5 Mg Tablet) 10 mg PO Q4H PRN PRN Reason: Pain, Severe (Pain Scale 7-10) Last Admin: 11/14/23 21:40 Dose: 10 mg Documented By: ALLISON Sodium Chloride (0.9 % Sodium Chloride Flush 3 Ml Syringe) 3 ml IVFLUSH [facility] Last Admin: 11/14/23 21:42 Dose: 3 ml Documented By: ALLISON Labs 11/14/23 06:18 11/14/23 06:18 Microbiology Microbiology Results: Microbiology 11/13/23 12:33 Gram Stain - Final Groin, Left Routine Culture - Preliminary Culture in progress. Procedures Date of Service Date of Service: 11/15/23 Progress Note: A&P Assessment and plan (1) Abscess of left groin: Status: Acute Assessment and Plan: I&D done Induration has resolved Redness much improved Dressings changed On IV antibiotics - doxycycline Await culture report Warm compresses in the area Pain meds Patient does not feel ready to be discharged We will monitor right axilla for small induration Time Spent With Patient Time: Total time managing care of this patient today ____ minutes. Quality Stroke Does the patient have a stroke diagnosis?: No VTE Prior VTE?: No VTE Risk Level:: Medical - low VTE Device Contraindication: Treatment Not Indicated VTE Drug Contraindication: Treatment Not Indicated
[2023-11-15] MEDS: 0.9 % Sodium Chloride Flush 3 ML SYRINGE IVFLUSH ×3 (08:24→20:01)
[2023-11-15] MEDS: Milk of Magnesia 30 ML ORAL.SUSP PO (09:36)
[2023-11-15] MEDS: Acetaminophen 325 MG TABLET 650 MG PO ×3 (09:43→19:56)
--- NOTE | 2023-11-15 14:03 | MHC.CM.PN ---
PT NOT YET CLEARED TO DC DCP: HOME NO SERVICES VIA PRIVATE TRANSPORT
[2023-11-15 15:22] VITALS: BP 128/61; PULSE 71; RESP 12; TEMP 36.3; O2SAT 99
[2023-11-15 15:31] VITALS: BP 128/61; PULSE 71; RESP 12; TEMP 36.3; O2SAT 99
[2023-11-15 19:00] VITALS: BP 114/58; PULSE 63; RESP 18; TEMP 36.3; O2SAT 99
[2023-11-15] MEDS: Melatonin 3 MG TABLET 6 MG PO (22:18)
[2023-11-16] MEDS: Doxycycline Hyclate 100 MG in 0.9 % Sodium Chloride 250 ML 166.67 MG IV (02:51)
[2023-11-16 03:37] VITALS: BP 94/53; PULSE 55; RESP 18; TEMP 36.1; O2SAT 99
--- NOTE | 2023-11-16 07:35 | P.PNGS_ITS ---
Subjective Subjective Date of Service: 11/16/23 Interval history: States that she still has pain on the I&D site on the left groin Swelling and redness have improved markedly She mentions an area of induration on the right axilla She does have stigmata of multiple areas with hidradenitis Physical Exam 2 Vital Signs: Vital Signs: Last Vital Signs Temp 97.0 F 11/16/23 03:37 Pulse 55 11/16/23 03:37 Resp 18 11/16/23 03:37 BP 94/53 L 11/16/23 03:37 Pulse Ox 99 11/16/23 03:37 O2 Del Method Room Air 11/16/23 03:37 BMI result Body Mass Index 47.7 Const: General: comfortable and no acute distress Nutritional Appearance: o bese Resp: Effort & Inspection: normal respiratory effort Cardio: Rate: regular rate GI: Palpation (GI): Soft to palpation Skin: Other: I&D site on the left groin with some residual edema but cellulitis seems resolved, no significant induration; area of induration right axilla small, about 0.5 cm, no active drainage, no fluctuance, no cellulitis Objective Data Active Medications Acetaminophen (Acetaminophen 325 Mg Tablet) 650 mg PO Q6H PRN PRN Reason: Pain, Mild (Pain Scale 1-3), fever or headache Last Admin: 11/15/23 19:56 Dose: 650 mg Documented By: KWAME Calcium Carbonate (Calcium Carbonate 750 Mg Tab.Chew) 750 mg PO Q4H PRN PRN Reason: Heartburn Doxycycline Hyclate 100 mg/ (Sodium Chloride) 250 mls @ 166.67 mls/hr IV Q12H [facility] Last Infusion: 11/16/23 04:28 Dose: Infused Documented By: KWAME Magnesium Hydroxide (Milk Of Magnesia 30 Ml Oral.Susp) 30 ml PO DAILY PRN PRN Reason: Constipation Last Admin: 11/15/23 09:36 Dose: 30 ml Documented By: BUDDY Melatonin (Melatonin 3 Mg Tablet) 6 mg PO BEDTIME PRN PRN Reason: Insomnia Last Admin: 11/15/23 22:18 Dose: 6 mg Documented By: KWAME Ondansetron HCl (Ondansetron Hcl 4 Mg/2 Ml Vial) 4 mg IVPUSH Q6H PRN PRN Reason: Nausea Last Admin: 11/14/23 15:09 Dose: 4 mg Documented By: SEBASTIAN Oxycodone HCl (Oxycodone Hcl Immed Release 5 Mg Tablet) 10 mg PO Q4H PRN PRN Reason: Pain, Severe (Pain Scale 7-10) Last Admin: 11/14/23 21:40 Dose: 10 mg Documented By: ALLISON Sodium Chloride (0.9 % Sodium Chloride Flush 3 Ml Syringe) [facility] Last Admin: 11/15/23 20:01 Dose: 3 ml Documented By: KWAME Labs 11/14/23 06:18 11/14/23 06:18 Microbiology Microbiology Results: Microbiology 11/13/23 12:33 Gram Stain - Final Groin, Left Routine Culture - Preliminary Culture in progress. Procedures Date of Service Date of Service: 11/16/23 Progress Note: A&P Assessment and plan (1) Abscess of left groin: Status: Acute Assessment and Plan: Status post I&D Induration and redness have markedly improved She complains of pain on the area She does not feel she is ready to go home today Area of induration on the right axilla noted and appears to be active hidradenitis but no abscess at this time (2) Hidradenitis suppurativa: Status: Acute Assessment and Plan: Has had multiple abscesses in the past on various areas Time Spent With Patient Time: Total time managing care of this patient today ____ minutes. Quality Stroke Does the patient have a stroke diagnosis?: No VTE Prior VTE?: No VTE Risk Level:: Medical - low VTE Device Contraindication: Treatment Not Indicated VTE Drug Contraindication: Treatment Not Indicated
[2023-11-16 08:00] VITALS: BP 112/53; PULSE 56; RESP 16; TEMP 36.3; O2SAT 98
[2023-11-16] MEDS: 0.9 % Sodium Chloride Flush 3 ML SYRINGE IVFLUSH ×3 (09:38→21:32)
[2023-11-16] MEDS: Doxycycline Monohydrate 100 MG CAPSULE PO ×2 (11:37→21:30)
--- NOTE | 2023-11-16 13:16 | MHC.CM.PN ---
EMR reviewed and per MD rounds, pt is not medically cleared for discharge.
[2023-11-16 15:57] VITALS: BP 121/60; PULSE 66; RESP 12; TEMP 36.3; O2SAT 98
[2023-11-16 19:19] VITALS: BP 133/72; PULSE 84; RESP 18; TEMP 36.4; O2SAT 98
[2023-11-16] MEDS: oxyCODONE HCl Immed Release 5 MG TABLET 10 MG PO (21:30)
[2023-11-17 03:06] VITALS: BP 126/56; PULSE 60; RESP 18; TEMP 36.7; O2SAT 99
[2023-11-17 07:30] VITALS: BP 133/82; PULSE 60; RESP 16; TEMP 36; O2SAT 99
--- NOTE | 2023-11-17 08:40 | P.CDIM_ITS ---
PROVIDER RESPONSE TEXT: To clarify, the appropriate diagnosis supported by the clinical indicators: I & D left groin abscess: skin and subcutaneous layer QUERY TEXT: PHYSICIAN'S DOCUMENTATION REQUEST Date of Query: 11/16/2023 11:25 AM EDT Patient Name: Mercy Davidson Admit Date: 11/13/2023 Dear Missael Ozuna MD, A review of the medical record indicates additional documentation may be needed. Please review below and update the documentation accordingly. Clinical Indicators: She has a left groin abscess and on the CT scan this seems about to be 4.8 cm on widest dimension and located intradermally. Surgical note dated 11/12: Procedure: I&D - left groin, large amounts of pus was drained. lidocaine 1% Could you provide, in the Progress Notes, further clarification regarding the depth of the I&D: I & D left groin abscess skin, subcutaneous, etc. Other (explain) Clinically unable to determine (explain) Thank you, Margarita Son, CCS, CDIS Use of terms such as suspected, likely, concern for, or probable (associated with a specific diagnosi s that is being evaluated, monitored, or treated as if it exists) are acceptable and can be coded in the inpatient se tting, when documented at the time of discharge. Please use your independent medical judgment in providing your response. THIS QUERY IS PART OF THE PERMANENT MEDICAL RECORD
[2023-11-17] MEDS: 0.9 % Sodium Chloride Flush 3 ML SYRINGE IVFLUSH ×3 (09:55→20:49)
[2023-11-17] MEDS: Doxycycline Monohydrate 100 MG CAPSULE PO ×2 (09:55→20:49)
--- NOTE | 2023-11-17 10:09 | P.PNGS_ITS ---
Subjective Subjective Date of Service: 11/17/23 Interval history: She says she continues to have pain on the I&D site left groin. She also says that she has this persistent pain on the I had axilla She says that she wants to proceed with excision this inflamed area on the left groin as well as the right axilla She is extremely anxious about going home with the the inflammation. Physical Exam 2 Vital Signs: Vital Signs: Last Vital Signs Temp 96.8 F 11/17/23 07:30 Pulse 60 11/17/23 07:30 Resp 16 11/17/23 07:30 BP 133/82 11/17/23 07:30 Pulse Ox 99 11/17/23 07:30 O2 Del Method Room Air 11/17/23 07:30 BMI result Body Mass Index 47.7 Const: Other: Extremely anxious, obese looking General: comfortable and no acute distress Resp: Effort & Inspection: normal respiratory effort Cardio: Rate: regular rate Skin: Other: Area of induration about 1.5 cm on right axilla consistent with hidradenitis I&D site clean, cellulitis and induration has improved significantly but still with tenderness Objective Data Active Medications Acetaminophen (Acetaminophen 325 Mg Tablet) 650 mg PO Q6H PRN PRN Reason: Pain, Mild (Pain Scale 1-3), fever or headache Last Admin: 11/15/23 19:56 Dose: 650 mg Documented By: KWAME Calcium Carbonate (Calcium Carbonate 750 Mg Tab.Chew) 750 mg PO Q4H PRN PRN Reason: Heartburn Doxycycline Monohydrate (Doxycycline Monohydrate 100 Mg Capsule) 100 mg PO BID [facility] Last Admin: 11/17/23 09:55 Dose: 100 mg Documented By: OMAR Magnesium Hydroxide (Milk Of Magnesia 30 Ml Oral.Susp) 30 ml PO DAILY PRN PRN Reason: Constipation Last Admin: 11/15/23 09:36 Dose: 30 ml Documented By: BUDDY Melatonin (Melatonin 3 Mg Tablet) 6 mg PO BEDTIME PRN PRN Reason: Insomnia Last Admin: 11/15/23 22:18 Dose: 6 mg Documented By: KWAME Ondansetron HCl (Ondansetron Hcl 4 Mg/2 Ml Vial) 4 mg IVPUSH Q6H PRN PRN Reason: Nausea Last Admin: 11/14/23 15:09 Dose: 4 mg Documented By: SEBASTIAN Oxycodone HCl (Oxycodone Hcl Immed Release 5 Mg Tablet) 10 mg PO Q4H PRN PRN Reason: Pain, Severe (Pain Scale 7-10) Last Admin: 11/16/23 21:30 Dose: 10 mg Documented By: ALLISON Sodium Chloride (0.9 % Sodium Chloride Flush 3 Ml Syringe) 3 ml IVFLUSH [facility] Last Admin: 11/17/23 09:55 Dose: 3 ml Documented By: OMAR Labs 11/14/23 06:18 11/14/23 06:18 Microbiology Microbiology Results: Microbiology 11/13/23 12:33 Gram Stain - Final Groin, Left Routine Culture - Final Procedures Date of Service Date of Service: 11/17/23 Progress Note: A&P Assessment and plan (1) Hidradenitis suppurativa: Status: Acute Assessment and Plan: She had an I and D of an abscess on the left groin likely with hidradenitis as etiology She has also has this small induration on the on the right axilla also because of her active hidradenitis She is strictly anxious about these ongoing pain and inflammation She wants to have both areas excised or drained She says that she does not feel she can go home with active inflammation I had multiple discussions with her the that to excise the active inflamed and areas will would mean that she will have an open wound which will require significant wound care post postop I also explained to her that she will have significant pain from the open wounds She insists on going ahead with excision of these areas as she feels she will not be able to go home with this We will put her on the add on schedule today She does have a history of hidradenitis on multiple areas of her body and has had previous surgeries in the past Time Spent With Patient Time: Total time managing care of this patient today ____ minutes. Quality Stroke Does the patient have a stroke diagnosis?: No VTE Prior VTE?: No VTE Risk Level:: Medical - low VTE Device Contraindication: Treatment Not Indicated VTE Drug Contraindication: Treatment Not Indicated
--- NOTE | 2023-11-17 12:46 | P.CONAN_ITS ---
[facility] Active Problems Active Problems: All Active Problems Abscess of left groin (Acute) Abscess (Acute) Cellulitis (Acute) COVID-19 (Acute) Dysthymia (Acute) Von Willebrand disease (Acute) Hidradenitis suppurativa (Acute) Hypercholesterolemia (Acute) Morbid obesity (Acute) Past Medical History Medical History Abscess of left groin Cognitive capacity: Functional capacity: independent ambulation Patient : No Family History Family History Mother Arthritis Anemia Father Diabetes High cholesterol Gout Brother No problems noted. Sister No problems noted. Sister No problems noted. Family history of problems with anesthesia: No Surgical History Surgical History Hx of wisdom tooth extraction Hx of tonsillectomy History of Problems with Anesthesia: No Social History Social History Household Members: Family Housing: House Do you presently have visiting nurse or other home services: No Alcohol intake: never Patient Tobacco Use Status: Never used Tobacco Substance Use Type: Other service: No Meds Allergies Allergy/AdvReac Type Severity Reaction Status Date / Time bee pollen [BEE STINGS] Allergy Severe SWELLING Verified 11/12/23 23:47 amoxicillin [AMOXICILLIN] Allergy Unknown UNKNOWN Verified 11/12/23 23:47 SEASONAL ALLERGIES Allergy Unknown SINUS Uncoded 05/17/23 11:55 CONGESTION Active Medications: Current Medications Acetaminophen (Acetaminophen 325 Mg Tablet) 650 mg PO Q6H PRN PRN Reason: Pain, Mild (Pain Scale 1-3), fever or headache Last Admin: 11/15/23 19:56 Dose: 650 mg Calcium Carbonate (Calcium Carbonate 750 Mg Tab.Chew) 750 mg PO Q4H PRN PRN Reason: Heartburn Doxycycline Monohydrate (Doxycycline Monohydrate 100 Mg Capsule) 100 mg PO BID [facility] Last Admin: 11/17/23 09:55 Dose: 100 mg Magnesium Hydroxide (Milk Of Magnesia 30 Ml Oral.Susp) 30 ml PO DAILY PRN PRN Reason: Constipation Last Admin: 11/15/23 09:36 Dose: 30 ml Melatonin (Melatonin 3 Mg Tablet) 6 mg PO BEDTIME PRN PRN Reason: Insomnia Last Admin: 11/15/23 22:18 Dose: 6 mg Ondansetron HCl (Ondansetron Hcl 4 Mg/2 Ml Vial) 4 mg IVPUSH Q6H PRN PRN Reason: Nausea Last Admin: 11/14/23 15:09 Dose: 4 mg Oxycodone HCl (Oxycodone Hcl Immed Release 5 Mg Tablet) 10 mg PO Q4H PRN PRN Reason: Pain, Severe (Pain Scale 7-10) Last Admin: 11/16/23 21:30 Dose: 10 mg Sodium Chloride (0.9 % Sodium Chloride Flush 3 Ml Syringe) 3 ml IVFLUSH QSHIFT [facility] Last Admin: 11/17/23 09:55 Dose: 3 ml Home Medications ?Medication ?Instructions ?Recorded ?Confirmed ?Last Taken ?Type No Known Home Meds 11/13/23 11/13/23 Unknown History Exam Height,Weight and Vital Signs: Height 4 ft 11 in Weight 107.048 kg Last Vital Signs Temp 96.8 F 11/17/23 07:30 Pulse 60 11/17/23 07:30 Resp 16 11/17/23 07:30 BP 133/82 11/17/23 07:30 Pulse Ox 99 11/17/23 07:30 O2 Del Method Room Air 11/17/23 07:30 Pertinent Lab Results Pertinent Lab Results: Laboratory Tests 11/13/23 11/14/23 07:40 06:18 WBC 11.3 H 9.5 RBC 4.50 4.14 L Hgb 11.3 L 10.3 L Hct 35.6 L 32.8 L MCV 79.1 L 79.2 L MCH 25.1 L 24.9 L MCHC 31.7 31.4 RDW 14.7 14.8 Plt Count 393 377 MPV 9.8 9.9 Immature Gran % (Auto) 0.4 Neut % (Auto) 63.4 Lymph % (Auto) 28.5 [place] % (Auto) 5.7 Eos % (Auto) 1.6 Baso % (Auto) 0.4 Lymph # (Auto) 3.2 [place] # (Auto) 0.6 Eos # (Auto) 0.2 Baso # (Auto) 0.0 Abs Immat Gran (auto) 0.04 H Absolute Neuts (auto) 7.1 Absolute Nucleated RBC 0.000 0.000 Nucleated RBC % (auto) 0.0 0.0 ESR 29 H Sodium 139 137 Potassium 4.3 3.9 Chloride 104 105 Carbon Dioxide 26 25 Anion Gap 13 11 L BUN 10 7 L Creatinine 0.75 0.70 Estim Creat Clear Calc 128.7 138.0 Estimated GFR > 60 > 60 Random Glucose 112 105 Calcium 9.4 9.1 Total Bilirubin 0.4 AST 20 ALT 21 Alkaline Phosphatase 69 C-Reactive Protein 5.12 H Total Protein 7.7 Albumin 4.1 Beta HCG, Quant < 2 Airway Mallampati Class: III TM Dist: >3cm Neck ROM: Full Heart: RRR Lungs: CTA Assessment and Plan Assessment Anesthesia Assessment: Anesthesia Plan Discussed Final Anesthetic Review Family History of Problems with Anesthesia: No History of Problems with Anesthesia: No NPO: No ASA Class: III and Emergency Final Preanesthetic Review: Meds/Allgs Chart Reviewed, Consent Obtained/Reviewed and Anes Risks/Benef Reviewed Patient Risk: Intermediate Procedure Risk: Low Anesthetic Plan Anesthetic Plan: GA
[2023-11-17 13:39] VITALS: BP 124/70; PULSE 67; RESP 16; TEMP 36.5; O2SAT 95
[2023-11-17] MEDS: Lactated Ringers 1,000 ML 50 ML IVCONT (13:58)
--- NOTE | 2023-11-17 14:31 | HO.WOUND ---
Wound Consult: Initial 23yr old? female admitted to [facility] on 11/13/23 - See progress notes and H&P for detailed history.? Wound consult placed for Left Groin I&D site.? Patient agreeable to assessment and photo documentation.? Patient has known diagnosis of Hidradenitis Suppurativa she reports she treats and has routine follow up with her Technology Project Manager for frequent flares. She reports she does not take immune modulators nor any other systemic treatments. She reports she takes oral antibiotics for flares and has had what appears to be a wide excision to the axilla for prior flares. She reports Dr. Ozuna will be performing a surgical excision to the left groin this admission - per brief conversation with General surgery PA the Right axilla was the site of an I &D planned for the OR. Clarification needed for patient - direct care nurse Loreto will work with General surgery team to clarify. The patient was educated on the importance of Dermatology follow up and advised to discuss systemic treatments if she was interested in learned more about her options, she reports understanding. The pannus, both groins and both axilla were assessed . They were consistent with Hidradenitis Suppurativa with old sites noted. No active flares noted - no active oozing noted. To the left groin there are three small resurfacing areas noted. No open oozing noted, there is some pink erythema but no induration or fluctuance noted. These sites will benefit from a dry dressing to minimize friction and absorb excess moisture since it is with in a fold. The right axilla was noted for a small red resurfacing area - no open tissue noted. There is mild erythema noted but no warmth and no induration noted. Patient does report pain to the left groin and right axilla. Recommendations: 1. Left Groin and Axilla - Cleanse with Ph balanced wipes or wash. Apply skin prep allow to dry. Cover with ABD pad secure in place with tape. Change daily. Re-consult wound care Nurse for wound deterioration or wound changes.
--- NOTE | 2023-11-17 14:56 | PC.NURSE ---
Due to unavailability of anesthesia, patient postponed for surgery until 11/18/2023. Pt upset, stated has been waiting for surgery x 3 days.
--- NOTE | 2023-11-17 15:12 | PM.EVENT ---
Event Note Date of Service: 11/17/23 Event Note: Patient was brought down for I and D and debridement However, the anesthesiologist stated that all cases had been delayed and on hold They would not be able to do her case until much later I discussed this with the patient - she was okay to have the procedure done tomorrow Time Spent With Patient Time: Total time managing care of this patient today ____ minutes.
[2023-11-17 15:17] VITALS: BP 121/58; PULSE 68; RESP 18; TEMP 36.1; O2SAT 99
[2023-11-17 19:13] VITALS: BP 132/61; PULSE 76; RESP 18; TEMP 36.2; O2SAT 98
[2023-11-18] VITALS (11 sets, daily range): BP systolic 116–153; BP diastolic 59–96; PULSE 67–113; RESP 14–18; TEMP 36–36.6; O2SAT 96–100
--- NOTE | 2023-11-18 08:16 | P.PNGS_ITS ---
Subjective Subjective Date of Service: 11/18/23 Interval history: No events overnight No fever She states that she wants to get this done? Physical Exam 2 Vital Signs: Vital Signs: Last Vital Signs Temp 96.8 F 11/18/23 07:02 Pulse 68 11/18/23 07:02 Resp 16 11/18/23 07:02 BP 125/82 11/18/23 07:02 Pulse Ox 99 11/18/23 07:02 O2 Del Method Room Air 11/18/23 07:02 BMI result Body Mass Index 47.7 Const: General: comfortable and no acute distress Resp: Effort & Inspection: normal respiratory effort Cardio: Rate: regular rate Skin: Other: Sinuses on the groin, induration and redness have improved significantly Induration on the right axilla about 2 cm, fluctuance, with sinuses as well Both areas consistent with active hidradenitis suppurativa Objective Data Active Medications Acetaminophen (Acetaminophen 325 Mg Tablet) 650 mg PO Q6H PRN PRN Reason: Pain, Mild (Pain Scale 1-3), fever or headache Last Admin: 11/15/23 19:56 Dose: 650 mg Documented By: KWAME Calcium Carbonate (Calcium Carbonate 750 Mg Tab.Chew) 750 mg PO Q4H PRN PRN Reason: Heartburn Doxycycline Monohydrate (Doxycycline Monohydrate 100 Mg Capsule) 100 mg PO BID SARAH Last Admin: 11/17/23 20:49 Dose: 100 mg Documented By: KIKE Magnesium Hydroxide (Milk Of Magnesia 30 Ml Oral.Susp) 30 ml PO DAILY PRN PRN Reason: Constipation Last Admin: 11/15/23 09:36 Dose: 30 ml Documented By: BUDDY Melatonin (Melatonin 3 Mg Tablet) 6 mg PO BEDTIME PRN PRN Reason: Insomnia Last Admin: 11/15/23 22:18 Dose: 6 mg Documented By: KWAME Ondansetron HCl (Ondansetron Hcl 4 Mg/2 Ml Vial) 4 mg IVPUSH Q6H PRN PRN Reason: Nausea Last Admin: 11/14/23 15:09 Dose: 4 mg Documented By: SEBASTIAN Oxycodone HCl (Oxycodone Hcl Immed Release 5 Mg Tablet) 10 mg PO Q4H PRN PRN Reason: Pain, Severe (Pain Scale 7-10) Last Admin: 11/16/23 21:30 Dose: 10 mg Documented By: ALLISON Sodium Chloride (0.9 % Sodium Chloride Flush 3 Ml Syringe) [facility] Last Admin: 11/17/23 20:49 Dose: 3 ml Documented By: KIKE Labs 11/14/23 06:18 11/14/23 06:18 Procedures Date of Service Date of Service: 11/18/23 Progress Note: A&P Assessment and plan (1) Hidradenitis suppurativa: Status: Acute Assessment and Plan: She insists on proceeding with I and D,debridement of both areas and does not want to go home without undergoing debridement She has very low tolerance to pain and wants this done under anesthesia She understands the technique of the procedure She has aware of the risks, benefits, and alternatives She understands that she may have had large open wound on the debridement site and this will need intensive wound care She states that she has willing to go for this and does not want to go home without undergoing the procedure Time Spent With Patient Time: Total time managing care of this patient today ____ minutes. Quality Stroke Does the patient have a stroke diagnosis?: No VTE Prior VTE?: No VTE Risk Level:: Medical - low VTE Device Contraindication: Treatment Not Indicated VTE Drug Contraindication: Treatment Not Indicated
[2023-11-18] MEDS: 0.9 % Sodium Chloride Flush 3 ML SYRINGE IVFLUSH ×3 (08:21→19:29)
[2023-11-18] MEDS: Doxycycline Monohydrate 100 MG CAPSULE PO ×2 (08:21→19:26)
--- NOTE | 2023-11-18 10:51 | P.CONAN_ITS ---
HPI - Anesthesia Eval Consult details Narrative: 23 yo female patient for I&D of Left groin and Right axilla hidradenitis PMFSH Active Problems Active Problems: All Active Problems Abscess (Acute) Cellulitis (Acute) COVID-19 (Acute) Dysthymia (Acute) Von Willebrand disease (Acute)- diagnosed in elementary school. Had been discharged by Hematology but has recently started having nose bleeds again. More frequent and prolonged. Awaiting hematology appointment. Dr Ozuna aware of history. Does not expect any issues as surgery superficial Hidradenitis suppurativa (Acute) Hypercholesterolemia (Acute) Morbid obesity (Acute) BMI 47.7 Denies NHI Abscess of left groin (Acute) Past Medical History Medical History Abscess of left groin Functional capacity: independent ambulation Family History Family History Mother Arthritis Anemia Father Diabetes High cholesterol Gout Brother No problems noted. Sister No problems noted. Sister No problems noted. Family history of problems with anesthesia: No Surgical History Surgical History Status post debridement Hx of wisdom tooth extraction Hx of tonsillectomy History of Problems with Anesthesia: No Social History Social History Household Members: Family Housing: House Do you presently have visiting nurse or other home services: No Alcohol intake: never Patient Tobacco Use Status: Never used Tobacco Substance Use Type: Other service: No Meds Allergies Allergy/AdvReac Type Severity Reaction Status Date / Time bee pollen [BEE STINGS] Allergy Severe SWELLING Verified 11/17/23 13:32 amoxicillin [AMOXICILLIN] Allergy Unknown Rash Verified 11/17/23 13:32 SEASONAL ALLERGIES Allergy Unknown SINUS Uncoded 05/17/23 11:55 CONGESTION Active Medications: Current Medications Acetaminophen (Acetaminophen 325 Mg Tablet) 650 mg PO Q6H PRN PRN Reason: Pain, Mild (Pain Scale 1-3), fever or headache Last Admin: 11/15/23 19:56 Dose: 650 mg Calcium Carbonate (Calcium Carbonate 750 Mg Tab.Chew) 750 mg PO Q4H PRN PRN Reason: Heartburn Doxycycline Monohydrate (Doxycycline Monohydrate 100 Mg Capsule) 100 mg PO BID [facility] Last Admin: 11/18/23 08:21 Dose: 100 mg Magnesium Hydroxide (Milk Of Magnesia 30 Ml Oral.Susp) 30 ml PO DAILY PRN PRN Reason: Constipation Last Admin: 11/15/23 09:36 Dose: 30 ml Melatonin (Melatonin 3 Mg Tablet) 6 mg PO BEDTIME PRN PRN Reason: Insomnia Last Admin: 11/15/23 22:18 Dose: 6 mg Ondansetron HCl (Ondansetron Hcl 4 Mg/2 Ml Vial) 4 mg IVPUSH Q6H PRN PRN Reason: Nausea Last Admin: 11/14/23 15:09 Dose: 4 mg Oxycodone HCl (Oxycodone Hcl Immed Release 5 Mg Tablet) 10 mg PO Q4H PRN PRN Reason: Pain, Severe (Pain Scale 7-10) Last Admin: 11/16/23 21:30 Dose: 10 mg Sodium Chloride (0.9 % Sodium Chloride Flush 3 Ml Syringe) 3 ml IVFLUSH [facility] Last Admin: 11/18/23 08:21 Dose: 3 ml Home Medications ?Medication ?Instructions ?Recorded ?Confirmed ?Last Taken ?Type No Known Home Meds 11/13/23 11/13/23 Unknown History Exam Height,Weight and Vital Signs: Height 4 ft 11 in Weight 107.048 kg Last Vital Signs Temp 96.8 F 11/18/23 07:02 Pulse 68 11/18/23 07:02 Resp 16 11/18/23 07:02 BP 125/82 11/18/23 07:02 Pulse Ox 99 11/18/23 07:02 O2 Del Method Room Air 11/18/23 07:02 Vital Signs Temp Pulse Resp BP Pulse Ox O2 Del Method 11/18/23 10:56 97.3 F 67 16 121/60 99 Room Air 11/18/23 07:02 96.8 F 68 16 125/82 99 Room Air 11/18/23 03:49 97.6 F 68 18 122/59 L 98 Room Air 11/17/23 19:13 97.1 F 76 18 132/61 98 Room Air 11/17/23 15:17 97.0 F 68 18 121/58 L 99 Room Air 11/17/23 13:39 97.7 F 67 16 124/70 95 Room Air Pertinent Lab Results Pertinent Lab Results: Laboratory Tests 11/13/23 11/14/23 07:40 06:18 WBC 11.3 H 9.5 RBC 4.50 4.14 L Hgb 11.3 L 10.3 L Hct 35.6 L 32.8 L MCV 79.1 L 79.2 L MCH 25.1 L 24.9 L MCHC 31.7 31.4 RDW 14.7 14.8 Plt Count 393 377 MPV 9.8 9.9 Immature Gran % (Auto) 0.4 Neut % (Auto) 63.4 Lymph % (Auto) 28.5 [place] % (Auto) 5.7 Eos % (Auto) 1.6 Baso % (Auto) 0.4 Lymph # (Auto) 3.2 [place] # (Auto) 0.6 Eos # (Auto) 0.2 Baso # (Auto) 0.0 Abs Immat Gran (auto) 0.04 H Absolute Neuts (auto) 7.1 Absolute Nucleated RBC 0.000 0.000 Nucleated RBC % (auto) 0.0 0.0 ESR 29 H Sodium 139 137 Potassium 4.3 3.9 Chloride 104 105 Carbon Dioxide 26 25 Anion Gap 13 11 L BUN 10 7 L Creatinine 0.75 0.70 Estim Creat Clear Calc 128.7 138.0 Estimated GFR > 60 > 60 Random Glucose 112 105 Calcium 9.4 9.1 Total Bilirubin 0.4 AST 20 ALT 21 Alkaline Phosphatase 69 C-Reactive Protein 5.12 H Total Protein 7.7 Albumin 4.1 Beta HCG, Quant < 2 Airway Mallampati Class: II TM Dist: >3cm Neck ROM: Full Loose/Missing/Broken Teeth: No (Braces in place) Heart: RRR Lungs: CTAB Assessment and Plan Assessment Anesthesia Assessment: Anesthesia Plan Discussed and Chart Reviewed Final Anesthetic Review Family History of Problems with Anesthesia: No History of Problems with Anesthesia: No NPO: Yes ASA Class: III and Emergency Final Preanesthetic Review: No Changes in Pt Med Stat, Meds/Allgs Chart Reviewed, Consent Obtained/Reviewed and Anes Risks/Benef Reviewed Patient Risk: Intermediate Procedure Risk: Low Assessment/Block/Sedation in SS: Assess/Block/Sedation-SS Anesthetic Plan Anesthetic Plan: GA Disposition: Standard PACU
--- NOTE | 2023-11-18 13:20 | W.PM.OPN ---
Operative Note Operative Note Date of Service: 11/18/23 Narrative: Preop diagnosis: Hidradenitis suppurativa, with abscess, left groin and right axilla Postop diagnosis: The same Procedure: Excision of hidradenitis suppurativa, left groin and right axilla Surgeon: Missael Ozuna MD The patient is a 23-year-old female, with morbid obesity, with a long history of hidradenitis suppurativa with recurrent abscesses on various parts of her body. She was admitted because of an abscess in the left groin and had done an I&D. She describes active hidradenitis on this area as well as the right axilla. She did not want to be discharged before excising this areas because of pain and tenderness. She understood the technique of the planned procedure as well as the risks, benefits, and alternatives She was brought to the operating room and placed supine under general anesthesia via laryngeal mask airway. She was on scheduled antibiotics The left groin in the right axilla were prepped and draped in the usual sterile fashion. A surgical time-out had been done the. I infiltrated the planned line of incision on the left groin as well as the right axilla with lidocaine 1%. I started with the left groin. I made the incision around the area of induration along with sinuses using blade 15. This carried down with electrocautery through the full-thickness of the skin and subcutaneous fat. I excised all the areas of induration and grossly diseased subcutaneous layer. This was sent as a specimen. The excised area was about 9 cm long by about 5 cm wide. I irrigated. I closed the incision with full-thickness nylon 3-0 simple interrupted sutures. The same procedure was duplicated on the right axilla. Again there was note of a smaller area of induration with sinuses. I made the incision with a blade 15. And carried this down through the full-thickness of the skin and subcutaneous fat. I used electrocautery to excise the rest of the subcutaneous layer that appeared diseased. This was sent as a specimen The excised area on the right axilla was about 3 x 2 cm I closed the incision with full-thickness nylon 3-0 interrupted sutures All incisions were infiltrated with Marcaine 0.5% for postop analgesia. Dressings were applied. The procedure was completed The patient tolerated procedure well. There were no immediate complications. Initial and final counts of sponges and instruments were correct. Estimated blood loss about 25 cc The patient was extubated without difficulty and transferred to the recovery room with stable vital signs
[2023-11-18] MEDS: Morphine Sulfate 2 MG/ML CARTRIDGE IVPUSH ×2 (14:42→21:17)
[2023-11-19 03:54] VITALS: BP 105/54; PULSE 60; RESP 16; TEMP 36; O2SAT 98
[2023-11-19 07:11] VITALS: BP 115/58; PULSE 52; RESP 14; TEMP 36; O2SAT 97
[2023-11-19] MEDS: 0.9 % Sodium Chloride Flush 3 ML SYRINGE IVFLUSH (08:35)
[2023-11-19] MEDS: Doxycycline Monohydrate 100 MG CAPSULE PO (08:41)
--- NOTE | 2023-11-19 08:45 | P.PNGS_ITS ---
Subjective Subjective Date of Service: 11/19/23 Interval history: Feels well Good pain control Physical Exam 2 Vital Signs: Vital Signs: Last Vital Signs Temp 96.8 F 11/19/23 07:11 Pulse 52 11/19/23 07:11 Resp 14 11/19/23 07:11 BP 115/58 L 11/19/23 07:11 Pulse Ox 97 11/19/23 07:11 O2 Del Method Room Air 11/19/23 07:11 O2 Flow Rate 2 11/18/23 13:25 BMI result Body Mass Index 47.7 Const: General: comfortable and no acute distress Resp: Effort & Inspection: normal respiratory effort Skin: Other: Both excision sites on the right axilla and the left groin are clean, sutures intact, no evidence of any spreading cellulitis Objective Data Active Medications Acetaminophen (Acetaminophen 325 Mg Tablet) 650 mg PO Q6H PRN PRN Reason: Pain, Mild (Pain Scale 1-3), fever or headache Last Admin: 11/15/23 19:56 Dose: 650 mg Documented By: KWAME Calcium Carbonate (Calcium Carbonate 750 Mg Tab.Chew) 750 mg PO Q4H PRN PRN Reason: Heartburn Doxycycline Monohydrate (Doxycycline Monohydrate 100 Mg Capsule) 100 mg PO BID SARAH Last Admin: 11/19/23 08:41 Dose: 100 mg Documented By: SEBASTIAN Magnesium Hydroxide (Milk Of Magnesia 30 Ml Oral.Susp) 30 ml PO DAILY PRN PRN Reason: Constipation Last Admin: 11/15/23 09:36 Dose: 30 ml Documented By: BUDDY Melatonin (Melatonin 3 Mg Tablet) 6 mg PO BEDTIME PRN PRN Reason: Insomnia Last Admin: 11/15/23 22:18 Dose: 6 mg Documented By: KWAME Morphine Sulfate (Morphine Sulfate 2 Mg/Ml Cartridge) 2 mg IVPUSH Q3H PRN; Protocol PRN Reason: Pain, Severe (Pain Scale 7-10) Last Admin: 11/18/23 21:17 Dose: 2 mg Documented By: KIKE Ondansetron HCl (Ondansetron Hcl 4 Mg/2 Ml Vial) 4 mg IVPUSH Q6H PRN PRN Reason: Nausea Last Admin: 11/14/23 15:09 Dose: 4 mg Documented By: SEBASTIAN Sodium Chloride (0.9 % Sodium Chloride Flush 3 Ml Syringe) 3 ml IVFLUSH [facility]SHIFT SARAH Last Admin: 11/19/23 08:35 Dose: 3 ml Documented By: SEBASTIAN Labs 11/14/23 06:18 11/14/23 06:18 Procedures Date of Service Date of Service: 11/19/23 Progress Note: A&P Assessment and plan (1) Hidradenitis suppurativa: Status: Acute Assessment and Plan: Status post excision of hidradenitis from the left hand in the right axilla Doing well Sutures intact She feels ready to go We will discharge home on pain medications Continue doxycycline Follow-up instructions reinforced with patient Time Spent With Patient Time: Total time managing care of this patient today ____ minutes. Quality Stroke Does the patient have a stroke diagnosis?: No VTE Prior VTE?: No VTE Risk Level:: Medical - low VTE Device Contraindication: Treatment Not Indicated VTE Drug Contraindication: Treatment Not Indicated
--- NOTE | 2023-11-19 09:01 | MHC.CM.PN ---
PT WILL DC HOME TODAY WITH NO SERVICES MOTHER TO TRANSPORT
--- NOTE | 2023-11-19 12:11 | P.DS_ITS ---
DS: Providers Provider Date of Service: 11/19/23 Date of admission: 11/13/23 11:14 Date of discharge: 11/19/23 Primary care physician: None Physician Attending physician on admission: Missael Ozuna Consults: 11/13/23 17:37 Consult to Wound Care Routine Reason for consultation: cellulitis Attending physician on discharge: Missael Ozuna DS: Diagnosis Discharge Diagnosis (1) Hidradenitis suppurativa: Status: Acute DS: Summary Hospital Course Hospital Course: HPI AT ADMISSION: Mercy Davidson is a 23 year old female here in the ER because of left groin swelling and pain. She says this started about 2 days ago. She says that this has been worsening. She denies any fever or chills. She admits to having multiple abscesses in the past with hidradenitis. She has had I and D's on different parts of her body since she was young. She also has Von Willebrand's disease. She unfortunately did not see any primary care physician, and according to her parents, she is medically noncompliant. She denies any trauma or insect bite to the area. She has a left groin abscess and on the CT scan this seems about be 4.8 cm on widest dimension and located intradermally. HOSPITAL COURSE: In view of her cellulitic changes and induration, she was admitted for IV antibiotics. I and D of the left groin abscess was performed at bedside with large amounts of purulent drainage. She was started on vancomycin however had some lip swelling and this was discontinued and started on doxycycline. She remained inpatient for wound care and antibiotics. She also described active hidradenitis of the left groin as well as the right axilla. She did not want to be discharged before excising these areas because of pain and tenderness. On 11/18/23, excision of hidradenitis suppurativa, left groin and right axilla was performed by Dr. Ozuna in the OR. The following day, she felt well with good pain control. Both excision sites on the right axilla and the left groin were clean with sutures intact, no evidence of any spreading cellulitis. SHe felt ready for discharge to home. She was discharged to home on 11/19/23 in stable condition. She was discharged on PO doxycycline. She is to follow up in the office in 2 weeks. Status at Discharge Functional status at discharge: independent ambulation Time Attestation Discharge Coordination Time (in mins): 35 Quality: Safe Use of Opioids Does Pt have an Active Cancer Diagnosis on the Problem List?: No Quality: Stroke Does the patient have a stroke diagnosis?: No Physical Exam Vital Signs: Vital Signs: Last Vital Signs Temp 96.8 F 11/19/23 07:11 Pulse 52 11/19/23 07:11 Resp 14 11/19/23 07:11 BP 115/58 L 11/19/23 07:11 Pulse Ox 97 11/19/23 07:11 O2 Del Method Room Air 11/19/23 07:11 O2 Flow Rate 2 11/18/23 13:25 BMI result Body Mass Index 47.7 Const: General: comfortable, no acute distress and alert Orientation/consciousness: patient oriented x3 Skin: Other: right axilla and left groin incision sites clean, sutures intact Neuro: General: patient oriented x3 DS: Data Data Completed and Pending Completed studies during hospitalization [Text1]: 11/18/23 12:45 Surgical [PTH] Routine A. Skin and soft tissue, left groin, excision: Hidradenitis suppurativa. B. Skin and soft tissue, right axilla, excision: Hidradenitis suppurativa Procedures Drainage of Pelvic Region Subcutaneous Tissue and Fascia, Open Approach (11/13/23) Excision of Pelvic Region Subcutaneous Tissue and Fascia, Open Approach (11/13/23) Excision of Right Upper Arm Subcutaneous Tissue and Fascia, Open Approach (11/13/23) Discharge Plan Discharge Anticipated Discharge Date/Time: 11/19/23 08:46 Patient Disposition: Home, Self-Care Discharge Diagnosis: Hidradenitis suppurativa with abscess Referrals: Missael Ozuna MD [Physician] - 2 Weeks Physician,None [Primary Care Provider] - 1 Week Discharge Medications: New tramadol 50 mg tablet 50 mg PO Q6H PRN (Reason: pain) Qty: 20 0RF ibuprofen 600 mg tablet 600 mg PO Q6H PRN (Reason: pain) Qty: 30 0RF doxycycline hyclate 100 mg tablet 100 mg PO DAILY Qty: 7 0RF No Action oxycodone 5 mg tablet 5 mg PO TID PRN (Reason: severe pain (scale score 7-10)) Qty: 7 0RF Rx Instructions: Partial Fill upon patient request. Discharge Orders: Discharge Order (Routine); Ordered 11/19/23 Ordered By: Missael Ozuna Diet: Advance to usual diet Activity on Discharge: As tolerated Stand Alone Forms: Patient Portal Discharge page Print Language: Divehi Activity Restrictions/Additional Instructions: If the incision area is tender, you may apply an ice pack for short intervals (No more than 20 minutes on, followed by at least 20 minutes off). Do not apply heat. Do not use creams, lotions, or topical antibiotics unless instructed to do so by your surgeon. These can cause infection or allergic reaction. Okay to shower Okay to change dressings with gauze or Band-Aid No strenuous activities Call the office for follow-up in 2 weeks - with Dr. Ozuna Call Your Doctor If: -Your temperature exceeds 101.5? F -You experience excessive pain or swelling -You have an unexpected reaction to medication -You have excessive bleeding -You experience continued vomiting/nausea -Your incision begins to separate -Your incision shows signs of infection such as increased redness, swelling, excessive pain, drainage (light blood or clear fluid is normal) or heat Care Plan Goals: Returned to baseline Health Concerns: Pain management Recurrent hidradenitis Plan of Treatment: Oral pain meds Doxycycline Assessment: Doing very Discharge Date/Time: 11/19/23 11:32
--- NOTE | 2023-11-19 13:25 | HO.POSTANES ---
Post Anesthesia Evaluation Post Anesthesia Evaluation Date of Service: 11/18/23 Vital Signs: Vital Signs Temp Pulse Resp BP Pulse Ox O2 Del Method 11/19/23 07:11 96.8 F 52 14 115/58 L 97 Room Air 11/19/23 03:54 96.8 F 60 16 105/54 L 98 Room Air Anesthesia: General Mental Status: Awake Nausea/Vomiting: None Hydration: Adequate Anesthesia-Related Issues: No Anes. Related Issues
== END 2023-11-19 11:32 | disposition home or self-care (01) | DRG 364 ==
LOC: HO.ED 11-13 11:03 → HO.EDOVER 11-13 11:18 → HO.S3 11-13 15:35
PROVIDERS: Physician Assistant Medical; Admitting Provider Surgery; Emergency Provider Emergency Medicine; Visit Provider Surgery
PROC: 0JBC0ZZ Excision of Pelvic Region Subcutaneous Tissue and Fascia, Open Approach (ICD-10-PCS; principal; 2023-11-18 12:00)
DX: L02.214 Cutaneous abscess of groin (principal); D68.00 Von Willebrand disease, unspecified; L02.411 Cutaneous abscess of right axilla; L73.2 Hidradenitis suppurativa; E66.01 Morbid (severe) obesity due to excess calories; Z68.42 Body mass index [BMI] 45.0-49.9, adult; Z91.199 Patient's noncompliance with other medical treatment and regimen due to unspecified reason
CPT/HCPCS: 36415; 73701; 80048; 80053; 84702; 85025; 85027; 85652; 86140; 87070; 87205; 88305; 99285; J1100; J1596; J2250; J2270; J2405; J2704; J2795; J3010; J3370; J7120; Q9967

== ENCOUNTER → 2023-11-13 11:14 | Outpatient (BNV) | payer OTHER, SELFPAY | PROVIDERS: Admitting Provider Surgery; Emergency Provider Emergency Medicine; Visit Provider Surgery | DX: L73.2 Hidradenitis suppurativa (principal) | CPT/HCPCS: 10060; 11450; 99024; 99222; 99499 ==

== ENCOUNTER 2023-11-20 11:22 | Emergency (ER) | payer OTHER, SELFPAY ==
[2023-11-20 11:23] VITALS: BP 115/70; PULSE 70; RESP 18; TEMP 36.5; O2SAT 98; BMI 46.4
--- NOTE | 2023-11-20 11:34 | ED.WOUNDLAC ---
HPI - Wound/Laceration General Chief Complaint: Wound/Laceration Stated Complaint: bleeding wound check surgery x 2 days Time Seen by Provider: 11/20/23 11:29 Source: patient, family, EMS, RN notes reviewed and old records reviewed Mode of arrival: EMS Limitations: no limitations History of Present Illness ED Provider: Kaylen Avelar PA-C HPI narrative: 23 yo female with history of von Willebrand disease, history of hidradenitis suppuritiva with recent admission to [facility] [place] 11/12-11/18 for left thigh cellulitis and abscess requiring surgical drainage. She was discharged on oral antibiotics with plan to see Dr. Ozuna in 2 weeks in the office. Patient was taking a shower today when she had bleeding form the left inguinal incision site. There was a lot of blood at the bottom of the tub and she was afraid it wasn't going to stop so her and her sister called 911. She reports ongoing pain at the site with minimal improvement with tramadol. no fevers. no drainage of pus. On arrival to the ER the bleeding had stopped. Onset (ago): minute(s) Place: home Context: accidental Associated symptoms: pain Treatments prior to arrival: bandage Related Data Previous Rx's ?Medication ?Instructions ?Recorded doxycycline hyclate 100 mg tablet 100 mg PO DAILY #7 tabs 11/19/23 ibuprofen 600 mg tablet 600 mg PO Q6H PRN pain #30 tabs 11/19/23 tramadol 50 mg tablet 50 mg PO Q6H PRN pain #20 tabs 11/19/23 oxycodone 5 mg tablet 5 mg PO TID PRN severe pain (scale 11/20/23 score 7-10) #7 tabs Allergies Allergy/AdvReac Type Severity Reaction Status Date / Time bee pollen [BEE STINGS] Allergy Severe SWELLING Verified 11/20/23 11:27 amoxicillin [AMOXICILLIN] Allergy Unknown Rash Verified 11/20/23 11:27 SEASONAL ALLERGIES Allergy Unknown SINUS Uncoded 05/17/23 11:55 CONGESTION Review of Systems Review of Systems: Yes all other systems are reviewed and are negative PMFSH Past Medical History Medical History Abscess of left groin Surgical History Status post debridement Hx of wisdom tooth extraction Hx of tonsillectomy Family History Family History Mother Arthritis Anemia Father Diabetes High cholesterol Gout Brother No problems noted. Sister No problems noted. Sister No problems noted. Social History Social History Household Members: Family Housing: House Do you presently have visiting nurse or other home services: No Alcohol intake: never Patient Tobacco Use Status: Never used Tobacco Substance Use Type: Other service: No Physical Exam Vital Signs: Vital Signs: Last Vital Signs Temp 97.8 F 11/20/23 12:42 Pulse 68 11/20/23 12:42 Resp 18 11/20/23 12:42 BP 135/77 11/20/23 12:42 Pulse Ox 96 11/20/23 12:42 O2 Del Method Room Air 11/20/23 12:42 BMI result Body Mass Index 46.4 Appearance: Alert. Oriented X3. No acute distress. HEENT: normal inspection CVS: Normal heart rate and rhythm. Pulses normal. Respiratory: No respiratory distress. Skin: Skin warm and dry. Normal skin color. Normal skin turgor. No rashes. Extremities: left inguinal incision Neuro: Oriented X 3. No motor deficit. No sensory deficit. Medications Administered Discontinued Medications Generic Name Dose Route Start Last Admin Trade Name Freq PRN Reason Stop Dose Admin Oxycodone HCl 5 mg 11/20/23 12:15 11/20/23 12:22 Oxycodone Hcl Immed Release 5 Mg Tablet PO 11/20/23 12:16 5 mg ONCE ONE Administration Medical Decision Making Medical Decision Making [facility] Narrative: 23-year-old female with history of von Willebrand's disease, hidradenitis suppurativa who was admitted here for surgical intervention of her hidradenitis and cellulitis with abscess of the left inguinal region presents to the ER for evaluation of bleeding surgical site. Bleeding occurred in the shower today. On exam there is a small, less than 1 cm area pink tissue in the surgical site without active bleeding. No drainage. Oxycodone given for pain. Patient monitored without any re-bleeding. Nonstick dressing and then gauze applied to the area. Comfortable with discharge home with ongoing pain management, abx and f/u with general surgery. Differential Diagnosis Differential Diagnoses: The differential diagnosis associated with the presentation includes wound dehiscence, wound infection, abscess, laceration, hematoma Admission/Observation Consideration of admission/observation: Escalation of care including admission/observation considered Independent Historian Clinical information obtained from an independent historian. History obtained from or confirmed by: Other (Adult sister at the bedside) External Record Review External record reviewed: Inpatient record, Prior outpatient labs and Prior outpatient radiology Prescription Management I considered prescription management with: Pain Medication Chronic Conditions Patient?s care impacted by: Other (Hidradenitis suppurativa) Critical Care Time Critical Care Time Critical Care Time: No Discharge Plan Discharge Clinical Impression: Bleeding from wound Patient Disposition: Home, Self-Care Instructions: Acute Wounds (DC) Additional Instructions: your exam was reassuring today IF bleeding occurs, apply pressure for at least 10 minutes with gauze change the dressing at least once per day call Dr. Ozuna's office on Wednesday to arrange an outpatient appointment try the prescribed oxycodone for pain control instead of the tramadol. do not combine these medications take tylenol 1000 mg every 6-8 hours around the clock for pain If you develop new or worsening symptoms call 911 or come back to the ER for further evaluation. Prescriptions: New oxycodone 5 mg tablet 5 mg PO TID PRN (Reason: severe pain (scale score 7-10)) Qty: 7 0RF Rx Instructions: Partial Fill upon patient request. No Action tramadol 50 mg tablet 50 mg PO Q6H PRN (Reason: pain) Qty: 20 0RF ibuprofen 600 mg tablet 600 mg PO Q6H PRN (Reason: pain) Qty: 30 0RF doxycycline hyclate 100 mg tablet 100 mg PO DAILY Qty: 7 0RF Interventions: ED Discharge Assessment Last Done: 11/20/23 12:42 Discharge Date/Time: 11/20/23 12:42 Print Language: Bolivian
[2023-11-20] MEDS: oxyCODONE HCl Immed Release 5 MG TABLET PO (12:22)
[2023-11-20 12:42] VITALS: BP 135/77; PULSE 68; RESP 18; TEMP 36.6; O2SAT 96
== END 2023-11-20 12:42 | disposition home or self-care (01) ==
PROVIDERS: Emergency Provider Emergency Medicine
DX: L76.22 Postprocedural hemorrhage of skin and subcutaneous tissue following other procedure (principal); L73.2 Hidradenitis suppurativa; L03.314 Cellulitis of groin
CPT/HCPCS: 99283; 99284

== ENCOUNTER 2023-12-02 10:49 | Outpatient (AMB) | payer OTHER, SELFPAY ==
[2023-12-02 10:54] VITALS: BMI 46.4
--- NOTE | 2023-12-02 10:54 | A.OFFVIS_ITS ---
Vital Signs 12/02/23 10:54 Height 4 ft 11 in Weight 230 lb BMI 46.4 Intake Visit Reasons: s/p Groin abscess right Intake Note: This patient presents for a post-op assessment status post excision of hidradenitis suppurativa, left groin and right axilla. Pt c/o; reports no complaints at this time. Special Education Educational Assistant Required: No Accompanied by: Other Relationship Allergies bee pollen [BEE STINGS] Allergy (Severe, Verified 12/02/23 10:59) SWELLING amoxicillin [AMOXICILLIN] Allergy (Unknown, Verified 12/02/23 10:59) Rash SEASONAL ALLERGIES Allergy (Unknown, Uncoded 12/02/23 10:59) SINUS CONGESTION HPI HPI s/p Groin abscess right: Details: 23-year-old female who had undergone excision of hidradenitis from both the left groin in the right axilla as an inpatient last November 18, 2023. She initially had an abscess drained from the left groin as well because of hidradenitis at that same admission. She currently denies significant complaints. She feels well overall. She does have a history of multiple abscesses in the past because of her hidradenitis with morbid obesity. [facility] Medical History Abscess of left groin Surgical History Hx of surgical procedure (~11/18/23) Status post debridement Hx of wisdom tooth extraction Hx of tonsillectomy Family History Mother Arthritis Anemia Father Diabetes High cholesterol Gout Brother No problems noted. Sister No problems noted. Sister No problems noted. Social History Household Members: Family Housing: House Do you presently have visiting nurse or other home services: No Alcohol intake: never Patient Tobacco Use Status: Never used Tobacco Substance Use Type: Other service: No Physical Exam Const Other: Morbidly obese General: comfortable and no acute distress Orientation/consciousness: patient oriented x3 Neck Neck: Yes no lymphadenopathy Resp Auscultation: clear to auscultation bilaterally Cardio Rhythm: regular rhythm GI Palpation (GI): Soft to palpation, nontender and no guarding Skin Other: Excision sites on the left groin as well as the right axilla are both healing well, not infected Neuro General: patient oriented x3 Assessment & Plan Assessment & Plan (1) Hidradenitis suppurativa: Code(s): L73.2 - Hidradenitis suppurativa Category: Medical Plan: Status post excision of hidradenitis from the left groin of the right axilla. Both sites are healing well. I removed all her sutures. There was note of some skin separation on the excision on the right axilla. I told her that this should regain relate and reepithelialized down the line with good wound care. Her path report shows hidradenitis suppurativa. I advised her on good wound care. I told her to call the office for follow-up if she has any concerns with regards to the wound down the line. I also advised her on the benefits of weight loss. She can otherwise follow up on a p.r.n. basis. Coding Level of Care Code Global (63821) Diagnoses Hidradenitis suppurativa L73.2
== END 2023-12-02 11:06 | disposition home or self-care (01) ==
PROVIDERS: Visit Provider Surgery
DX: L73.2 Hidradenitis suppurativa (principal)
CPT/HCPCS: 99024

== ENCOUNTER → 2023-12-02 10:49 | Outpatient (BNVA) | payer OTHER, SELFPAY | PROVIDERS: Visit Provider Surgery | DX: L73.2 Hidradenitis suppurativa (principal) | CPT/HCPCS: 99212 ==

== ENCOUNTER → 2023-12-16 13:26 | Outpatient (BNVA) | payer OTHER, SELFPAY | PROVIDERS: Visit Provider Surgery | DX: L73.2 Hidradenitis suppurativa (principal); E66.9 Obesity, unspecified; Z68.42 Body mass index [BMI] 45.0-49.9, adult; Z71.3 Dietary counseling and surveillance | CPT/HCPCS: 99212 ==

== ENCOUNTER 2023-12-16 13:45 | Outpatient (AMB) | payer OTHER, SELFPAY ==
[2023-12-16 13:46] VITALS: BMI 46.4
--- NOTE | 2023-12-16 13:46 | MHC.OFFVIS ---
Vital Signs 12/16/23 13:46 Height 4 ft 11 in Weight 229 lb 15.991 oz BMI 46.4 Intake Visit Reasons: Wound check Intake Note: This patient presents wound check, Excision of hidradenitis suppurativa, left groin and right axilla. Pt c/o; left groin ? open wound, reports no fever or chills. Counting Machine Operator Required: No Accompanied by: Self / Same As Patient Allergies bee pollen [BEE STINGS] Allergy (Severe, Verified 12/16/23 13:51) SWELLING amoxicillin [AMOXICILLIN] Allergy (Unknown, Verified 12/16/23 13:51) Rash SEASONAL ALLERGIES Allergy (Unknown, Uncoded 12/16/23 13:51) SINUS CONGESTION HPI HPI Wound check: Details: She had undergone excision of hidradenitis from the left groin and the right axilla last 11/18/2023 She had called the office to have a wound check on the left groin. She says she had noticed some blood as well as the little bit of drainage. She denies any worsening of her pain. [facility] Medical History Abscess of left groin Surgical History Hx of surgical procedure (~11/18/23) Status post debridement Hx of wisdom tooth extraction Hx of tonsillectomy Family History Mother Arthritis Anemia Father Diabetes High cholesterol Gout Brother No problems noted. Sister No problems noted. Sister No problems noted. Social History Household Members: Family Housing: House Do you presently have visiting nurse or other home services: No Alcohol intake: never Patient Tobacco Use Status: Never used Tobacco Substance Use Type: Other service: No Review of Systems Const Denies chills and Denies fever(s) Card Denies chest pain, Denies dyspnea and Denies dyspnea on exertion Resp Denies cough, Denies dyspnea and Denies dyspnea on exertion GI Denies hematochezia and Denies change in bowel habits Denies hematuria Musc Denies back pain and Denies limited range of motion Neuro Denies focal weakness and Denies convulsions Psych Denies depression and Denies mood swings Physical Exam Vital Signs: BMI result Body Mass Index 46.4 Const Other: Morbidly obese General: comfortable and no acute distress Resp Effort & Inspection: normal respiratory effort Skin Other: Excision site on the right axilla is well healed, not infected Excision site on the left groin area is also healing well with some note of some skin separation with good granulation in between, no pus, no infection Assessment & Plan Assessment & Plan (1) Hidradenitis suppurativa: Code(s): L73.2 - Hidradenitis suppurativa Category: Medical Plan: Status post excision. I assured her that both excision sites are healing well and are not infected. I asked her to continue to do good wound care I had advised her to see a property economist for treatment of her diffuse hidradenitis with a biologic. She says she had says he has a already and we will see the property economist in [place] She can otherwise follow up with me on a p.r.n. basis. I had advised her on the benefits of weight loss and she says she is going to see her weight management office today. Coding Level of Care Code Global (04918) Diagnoses Hidradenitis suppurativa L73.2
== END 2023-12-16 13:54 | disposition home or self-care (01) ==
LOC: HO.HGS 13:45
PROVIDERS: Visit Provider Surgery
DX: L73.2 Hidradenitis suppurativa (principal)
CPT/HCPCS: 99024

== ENCOUNTER 2024-01-03 08:16 | Outpatient (AMB) | payer OTHER, SELFPAY ==
--- NOTE | 2024-01-03 12:16 | A.OFFVIS_ITS ---
VS Expanded 01/03/24 12:39 Height 4 ft 11 in Weight 239 lb BMI 48.3 Body Fat % 46.9 Body Fat Mass 112 Fat Free Mass 127 Visceral Fat Rating 13 Body Water % 38.3 Body Water Mass 91.4 Basal Metabolic Rate/Score 1,865 Intake Visit Reasons: TV Re-Est SWL BMI 48.3 Allergies bee pollen [BEE STINGS] Allergy (Severe, Verified 01/03/24 12:16) SWELLING amoxicillin [AMOXICILLIN] Allergy (Unknown, Verified 01/03/24 12:16) Rash SEASONAL ALLERGIES Allergy (Unknown, Uncoded 01/03/24 12:16) SINUS CONGESTION Medication List - Last Reconciled 01/03/24 by Colton Holden MD doxycycline hyclate 100 mg PO DAILY HPI HPI TV Re-Est SWL BMI 48.3: Details: Start time: 12.10pm, End time: 12.48pm ?I spent 33 minutes speaking with the patient on the phone plus an additional 5 minutes reviewing and updating records for a total of 38 minutes HPI Comments Details: Previous weight loss efforts: WMP program (lost 15lbs) Wakes up: 5am, Sleeps: 9.30pm Breakfast: 6.30am (toast with avocado, yogurt) Lunch: 12pm (chicken or salmon with rice and avocado) Dinner: 4pm (salad, rice, beans, fish) Snacks: 10am (peanuts), 2pm (fruit snacks) Exercise: none Fluids: Coffee: none, hot or iced Tea: occasionally, soda: none, juice: rarely, ETOH: none PFSH Medical History Abscess of left groin Surgical History Hx of surgical procedure (~11/18/23) Status post debridement Hx of wisdom tooth extraction Hx of tonsillectomy Family History (Updated 12/16/23 @ 13:58 by Gloria Ace CMA) Mother Arthritis Anemia Father Diabetes High cholesterol Gout Brother No problems noted. Sister No problems noted. Sister No problems noted. Paternal Aunt Breast cancer Social History Household Members: Family Housing: House Do you presently have visiting nurse or other home services: No Alcohol intake: never Patient Tobacco Use Status: Never used Tobacco Substance Use Type: Other service: No Telehealth Telehealth Telehealth Platform: Telephone Location of provider rendering services: practice address Location of patient: address on file Patient Identification confirmed using: Name, : Yes Telehealth method: voice only Patient verbally consented to treatment: Yes Patient verbally consented to billing insurance company: Yes Patient informed of any privacy concerns related to visit: Yes Minutes spent on Phone/Video with Pt.: 38 Assessment & Plan Assessment & Plan (1) Morbid obesity: Code(s): E66.01 - Morbid (severe) obesity due to excess calories Category: Medical Plan: 1.? Plan for lap sleeve gastrectomy. If diaphragmatic or ventral hernias are present at time of surgery, these will be repaired laparoscopically as well. Risks and complications include possible conversion to an open procedure, anastomotic leak, bleeding requiring transfusion, small bowel obstruction, , DVT and pulmonary embolism, cardiac, or pulmonary complications, as residential complications such as anastomotic ulcer, insufficient weight loss and vitamin deficiencies. I emphasized the importance of close follow-up, adherence to instructions and good communication. 2. Nutritional counseling. Start with 2 CELEBRATE REBUILD protein (buy at [facility] [employer]) shakes (ONE scoop EACH in 8oz low fat unsweetened almond milk each) at 6am-8am and 9am-11am, 2 protein bars (CELEBRATE protein bars, buy at [facility] [employer]) at 12pm-2pm and 3pm-5pm, dinner at 6pm (8 forks of protein and 8 forks of salad/vegetables) AND another HALF more protein bar after dinner at 8pm-9pm. So you do 2 protein shakes, 2.5 protein bars and one meal per day. Meal to include lean meat (beef, fish, pork, turkey, chicken), or thai yogurt, or egg whites, or beans with a salad with olive oil and fruits (berries, pears, apples, kiwi). Avoid salt, breads, potatoes, rice, pasta, desserts. 3. Each shake would be drunk slowly, like coffee in a period of 2 hours. 4. Cut each bar in 4 pieces and eat each piece in 30min ?to make each bar last 2 hours. 5. I emphasized the importance of measuring accurately the food portion and measure it when serving the food in plate 6. The meal portions include 8 full-size forks of meat and 8 full-size forks of salad. You always eat the meat portion but you can replace up to 4 forks for salad/vegetables with rice, potatoes or pasta, or a fruit ?if you like. The less you do it the better weight loss will be. 7. One full-size fork is what it can be scooped on the fork without falling aside and not what can be bit with the fork. Use regular forks like those you find in a typical restaurant. 8.? Please send me weight measurements as soon as possible and then once a week. Always include your diet and exercise plan. Alternatively come weekly at the office for weight checks and send me the measurements. 9. Start walking outside daily, tracking calories with a goal of 300 calories per day, daily. Goal is to burn 2000 calories per week on exercise, which means either 300 calories daily, or 400 calories 5 days per week, or 500 calories 4 days per week, or 650 calories 3 days per week. 10. The best choice would be to purchase a stationary bike, elliptical or treadmill at home that can track calories. Let me know if you do so I can give you an exercise plan. 11.?It is important of avoiding and for at least 18 months postoperatively and has been discussed at the infosession. 12. Goal is to lose at least 1.5-2lbs per week 13. Goal to lose 10% of your weight before surgery, which is about 24lbs. Ultimate weight goal: 215lbs before surgery 14. Please follow the diet plan exactly without any change. If you don't like something about the plan or you feel hungry you need to communicate with me so I can help you revise the plan. You should not change the plan yourself. 15. To be scheduled for EGD due to history of GERD. The possibility of biopsies was discussed. Patient needs to avoid use of NSAIDs and aspirin for 1 week prior to EGD. Risks of perforation and bleeding was discussed with the patient. This will be an outpatient procedure with IV sedation. Orders: Orders Lipid Panel Today D68.00 - Von Willebrand disease, unspecified, E66.01 - Morbid (severe) obesity due to excess calories, E78.00 - Pure hypercholesterolemia, unspecified Comprehensive Met. Panel Today D68.00 - Von Willebrand disease, unspecified, E66.01 - Morbid (severe) obesity due to excess calories, E78.00 - Pure hypercholesterolemia, unspecified Zinc Today D68.00 - Von Willebrand disease, unspecified, E66.01 - Morbid (severe) obesity due to excess calories, E78.00 - Pure hypercholesterolemia, un specified Vitamin B1 Today D68.00 - Von Willebrand disease, unspecified, E66.01 - Morbid (severe) obesity due to excess calories, E78.00 - Pure hypercholesterolemia, unspecified ECG 12 lead EKG Today D68.00 - Von Willebrand disease, unspecified, E66.01 - Morbid (severe) obesity due to excess calories, E78.00 - Pure hypercholesterolemia, unspecified Insulin Today D68.00 - Von Willebrand disease, unspecified, E66.01 - Morbid (severe) obesity due to excess calories, E78.00 - Pure hypercholesterolemia, unspecified Hemoglobin A1c Today D68.00 - Von Willebrand disease, unspecified, E66.01 - Morbid (severe) obesity due to excess calories, E78.00 - Pure hypercholesterolemia, unspecified Complete Blood Count Auto Diff Today D68.00 - Von Willebrand disease, unspecified, E66.01 - Morbid (severe) obesity due to excess calories, E78.00 - Pure hypercholesterolemia, unspecified IRON PROFILE Today D68.00 - Von Willebrand disease, unspecified, E66.01 - Morbid (severe) obesity due to excess calories, E78.00 - Pure hypercholesterolemia, unspecified Vitamin B12 and Folate Today D68.00 - Von Willebrand disease, unspecified, E66.01 - Morbid (severe) obesity due to excess calories, E78.00 - Pure hypercholesterolemia, unspecified C Reactive Protein Today D68.00 - Von Willebrand disease, unspecified, E66.01 - Morbid (severe) obesity due to excess calories, E78.00 - Pure hypercholesterol emia, unspecified Vitamin A Today D68.00 - Von Willebrand disease, unspecified, E66.01 - Morbid (severe) obesity due to excess calories, E78.00 - Pure hypercholesterolemia, unspecified TSH reflex Free T4 Today D68.00 - Von Willebrand disease, unspecified, E66.01 - Morbid (severe) obesity due to excess calories, E78.00 - Pure hypercholesterolemia, unspecified Ferritin Today D68.00 - Von Willebrand disease, unspecified, E66.01 - Morbid (severe) obesity due to excess calories, E78.00 - Pure hypercholesterolemia, unspecified Vitamin D 25-OH Total Today D68.00 - Von Willebrand disease, unspecified, E66.01 - Morbid (severe) obesity due to excess calories, E78.00 - Pure hypercholesterolemia, unspecified Referrals Behavioral Health Referral D68.00 - Von Willebrand disease, unspecified, E66.01 - Morbid (severe) obesity due to excess calories, E78.00 - Pure hypercholesterolemia, unspecified
[2024-01-03 12:39] VITALS: BMI 48.3
== END 2024-01-03 12:49 | disposition home or self-care (01) ==
LOC: HO.HBS 08:16
PROVIDERS: PCP Internal Medicine; Visit Provider Surgery
DX: E66.01 Morbid (severe) obesity due to excess calories (principal)
CPT/HCPCS: 99203

== ENCOUNTER → 2024-01-03 08:16 | Outpatient (BNVA) | payer OTHER, SELFPAY | PROVIDERS: PCP Internal Medicine; Visit Provider Surgery ==

== ENCOUNTER → 2024-01-06 08:41 | Outpatient (REF) | payer OTHER, SELFPAY ==
--- NOTE | 2024-01-06 09:08 | ECG_ITS ---
Test Reason : MOR OBS Blood Pressure : / mmHG Vent. Rate : 076 BPM Atrial Rate : 076 BPM P-R Int : 140 ms QRS Dur : 082 ms QT Int : 386 ms P-R-T Axes : 054 054 014 degrees QTc Int : 434 ms Sinus rhythm with Premature atrial complexes Otherwise normal ECG When compared with ECG of 19-JUN-2022 09:38, Premature atrial complexes are now Present Nonspecific T wave abnormality no longer evident in Anterior leads Referred By: Colton Holden Electronically Signed By:MIGUELINA HAMLIN
[2024-01-06 09:23] LABS: MANUAL DIFF FLAG NO
[2024-01-06 09:46] LABS: Basophils Percent Auto 0.4 % (0-2); Eosinophils Absolute Auto 0.2 X10*3/uL (0.0-0.4); Eosinophils Percent Auto 2.2 % (0-4); Hematocrit 35.4 % (37.0-47.0); Hemoglobin 10.9 g/dl (12.0-16.0); Imm Gran Abs Auto 0.02 X10*3/uL (0.00-0.03); Imm Gran Pct Auto 0.2 % (0.0-0.4); Lymphocytes Absolute Auto 2.9 X10*3/uL (1.2-4.9); Lymphocytes Percent Auto 34.6 % (20-40); Mean Corpuscular HGB Conc 30.8 g/dl (31.0-35.0); Mean Corpuscular Hemoglobin 24.2 pg (27.0-33.0); Mean Corpuscular Volume 78.7 fL (80.0-98.0); Mean Platelet Volume 9.8 fL (9.4-12.3); Monocytes Absolute Auto 0.4 X10*3/uL (0.1-1.2); Monocytes Percent Auto 5.1 % (2-11); Neutrophils Absolute Auto 4.7 x10*3/uL (2.0-8.3); Neutrophils Percent Auto 57.5 % (45-73); Platelet Count 420 X10*3/uL (160-400); Red Cell Distribution Width 15.7 % (11.0-16.0); White Blood Count 8.2 X10*3/uL (4.8-10.8)
[2024-01-06 10:07] LABS: Estimated Average Glucose 117 mg/dL; Hemoglobin A1C 105.6107 umol/L; Hemoglobin A1c % 5.7 % (<6.0)
[2024-01-06 10:32] LABS: Alanine Aminotransferase 33 U/L (0-31); Albumin Level 4.1 g/dL (3.5-5.0); Alkaline Phosphatase 67 U/L (39-117); Anion Gap 13 (12-20); Aspartate Amino Transferase 36 U/L (5-31); Bilirubin Total 0.4 mg/dL (0.0-1.0); Blood Urea Nitrogen 11 mg/dL (9-16); C Reactive Protein 2.09 mg/dL (< or = 0.50); Calcium 9.6 mg/dL (8.4-10.2); Carbon Dioxide 24 mmol/L (22-29); Chloride 107 mmol/L (96-108); Cholesterol 209 mg/dL (<200); Estimated Glomerular Filt Rate > 60; Glucose Random 112 mg/dL (60-115); HDL Cholesterol 31 mg/dL (>40); Iron 38 mcg/dL (30-160); LDL Cholesterol Calculated 152 mg/dL (<100); Percent Iron Saturation 14 % (15-50); Potassium 4.1 mmol/L (3.3-5.1); Sodium 140 mmol/L (135-145); Total Iron Binding Capacity 279 mcg/dL (228-428); Total Protein 7.6 g/dL (6.5-8.0); Triglycerides 134 mg/dL (<150); Unsaturated Iron Binding 241 ug/dL
[2024-01-06 10:39] LABS: Ferritin 49 ng/mL (10-122); Insulin 20 uU/mL (2-29); TSH reflex Free T4 1.98 uIU/mL (0.32-4.0); Vitamin D 25-OH Total 11.8 ng/mL (>30)
[2024-01-06 10:51] LABS: Folate 15.3 ng/mL (> or = 4.0); Vitamin B12 212 pg/mL (200-900)
[2024-01-10 18:28] LABS: Zinc 62 mcg/dL (60-130)
[2024-01-12 03:14] LABS: Vitamin A 44 mcg/dL (38-98)
[2024-01-13 06:39] LABS: Vitamin B1 10 nmol/L (8-30)
== END ==
LOC: HO.CARD 08:41
PROVIDERS: Absent Provider Surgery; Visit Provider Surgery
DX: D68.00 Von Willebrand disease, unspecified (principal); E78.00 Pure hypercholesterolemia, unspecified
CPT/HCPCS: 36415; 80053; 80061; 82306; 82607; 82728; 82746; 83036; 83525; 83540; 84425; 84443; 84590; 84630; 85025; 86140; 93005; 99211

== ENCOUNTER 2024-01-13 09:37 | Day surgery (SDC) | payer OTHER, SELFPAY ==
--- NOTE | 2024-01-11 14:03 | HO.ANESPROP2 ---
Documented by User: Linda Fajardo NP 01/11/24 14:04 HPI - Anesthesia Eval Consult details Narrative: 23yo F for Upper Endoscopy PMFSH Active Problems Active Problems: All Active Problems Vitamin B12 deficiency (Acute) Vitamin D deficiency (Acute) COVID-19 (Acute) Dysthymia (Acute) Von Willebrand disease (Acute) Hidradenitis suppurativa (Acute) Hypercholesterolemia (Acute) Morbid obesity (Acute) Past Medical History Medical History Abscess of left groin Family History Family History Mother Arthritis Anemia Father Diabetes High cholesterol Gout Brother No problems noted. Sister No problems noted. Sister No problems noted. Paternal Aunt Breast cancer Family history of problems with anesthesia: No Surgical History Surgical History Hx of surgical procedure (~11/18/23) Status post debridement Hx of wisdom tooth extraction Hx of tonsillectomy History of Problems with Anesthesia: No Social History Social History Household Members: Family Housing: House Are you a primary child care attendant school to a significant other at home: No Do you presently have visiting nurse or other home services: No Alcohol intake: never Patient Tobacco Use Status: Never used Tobacco Use of substances other than those prescribed or required for medical reasons: Yes Substance Use Type: Other Substance Use Frequency: Occasionally Have you been hit, kicked, punched, or otherwise hurt by someone within the past year? If so, by whom?: No Are you DNR?: No Advance Directives: No Advance Directives Information Provided: Yes Recently lost weight without trying: No How much weight loss: Not applicable Eating poorly because of decreased appetite: No Nutrition screen score: 0 Nutrition Risks: No Nutritional Risk Patient : No : No Poor oral hygiene: No service: No Meds Allergies Allergy/AdvReac Type Severity Reaction Status Date / Time bee pollen [BEE STINGS] Allergy Severe SWELLING Verified 01/13/24 10:14 amoxicillin [AMOXICILLIN] Allergy Unknown Rash Verified 01/13/24 10:14 SEASONAL ALLERGIES Allergy Unknown SINUS Uncoded 01/13/24 10:14 CONGESTION Assessment and Plan Assessment Anesthesia Assessment: Chart Reviewed Final Anesthetic Review Family History of Problems with Anesthesia: No History of Problems with Anesthesia: No Documented by User: Tamy Arias MD 01/13/24 11:26 PMF Past Medical History Medical History Abscess of left groin Family History Family History Mother Arthritis Anemia Father Diabetes High cholesterol Gout Brother No problems noted. Sister No problems noted. Sister No problems noted. Paternal Aunt Breast cancer Surgical History Surgical History Hx of surgical procedure (~11/18/23) Status post debridement Hx of wisdom tooth extraction Hx of tonsillectomy Social History Social History Household Members: Family Housing: House Are you a primary child care attendant school to a significant other at home: No Do you presently have visiting nurse or other home services: No Alcohol intake: never Patient Tobacco Use Status: Never used Tobacco Use of substances other than those prescribed or required for medical reasons: Yes Substance Use Type: Other Substance Use Frequency: Occasionally Have you been hit, kicked, punched, or otherwise hurt by someone within the past year? If so, by whom?: No Are you DNR?: No Advance Directives: No Advance Directives Information Provided: Yes Recently lost weight without trying: No How much weight loss: Not applicable Eating poorly because of decreased appetite: No Nutrition screen score: 0 Nutrition Risks: No Nutritional Risk Patient : No : No Poor oral hygiene: No service: No Meds Allergies Allergy/AdvReac Type Severity Reaction Status Date / Time bee pollen [BEE STINGS] Allergy Severe SWELLING Verified 01/13/24 10:14 amoxicillin [AMOXICILLIN] Allergy Unknown Rash Verified 01/13/24 10:14 SEASONAL ALLERGIES Allergy Unknown SINUS Uncoded 01/13/24 10:14 CONGESTION Exam Airway Mallampati Class: II TM Dist: <=3cm Neck ROM: Full Heart: rrr Lungs: cta Assessment and Plan Assessment Anesthesia Assessment: Anesthesia Plan Discussed Final Anesthetic Review NPO: Yes ASA Class: III Final Preanesthetic Review: No Changes in Pt Med Stat, Meds/Allgs Chart Reviewed, Consent Obtained/Reviewed and Anes Risks/Benef Reviewed Patient Risk: Intermediate Procedure Risk: Low Anesthetic Plan Anesthetic Plan: MAC: Disposition: Standard PACU
[2024-01-13 10:16] VITALS: BP 139/88; PULSE 67; RESP 16; TEMP 36.2; O2SAT 98; BMI 49.8
[2024-01-13 10:26] LABS: UPreg QC Valid YES; Urine Pregnancy NEGATIVE (NEGATIVE)
[2024-01-13] MEDS: Lactated Ringers 1,000 ML 80 ML IVCONT (10:34)
--- NOTE | 2024-01-13 10:43 | P.BOP_ITS ---
Brief Operative Note Date of Service: 01/13/24 Pre-op diagnosis: Morbid obesity Post-op diagnosis: same (Normal EGD) Procedure: PROCEDURE DATE: 01/13/2024 PREOPERATIVE DIAGNOSIS: Morbid obesity POSTOPERATIVE DIAGNOSIS: ?Same as above. 1) normal EGD PROCEDURE: [id number]-jedybijclobu with biopsies Surgeon: Leatha Holden M.D.. Ph.D. Transition Of Care Specialist: None ? Anesthesia: IV sedation Estimated blood loss: ?Minimal FINDINGS AND PROCEDURE: ? OPERATIVE INDICATIONS: ?The patient is a 23 year old female known to me who is interested in bariatric surgery.. Based on this information I recommended an upper endoscopy to evaluate the stomach's anatomy. Risks and complications of the surgery were discussed with the patient in advance particularly the possibility of perforation or bleeding that may require surgical intervention. The patient understood the risks and was in agreement with the plan. ? PROCEDURE: After informed consent was obtained by the patient, the patient was ?transferred to the Operating Room and was placed in the supine position.? After successful induction of IV sedation, a mouth block was inserted and the patient was placed in the left lateral decubitus position. An upper endoscopy was performed next, the oropharynx and esophagus appeared within the normal limits. There was no hiatal hernia. The z-line was smooth. Two biopsies were obtained from the distal esophagus 2-3 cm proximal to the GE junction and two additional biopsies from the GE junction. The stomach was entered and it appeared to be of normal size. There was no gastritis. There was no stricture or ulcer. A biopsy was obtained from the gastric fundus and the antrum. No significant bleeding was noted from any of the biopsy sites. Retroflexion of the scope revealed a normla GE junction. The scope was then a dvanced into the duodenum which appeared to be normal as well. At that point the duodenum ?and the stomach were decompressed and the scope was withdrawn from the patient's mouth. The patient extubated and was transferred in stable condition to the Recovery Room for further care. I was present and performed all steps of the procedure. There were no residents to assist with this case. Gerard Holden M.D., Ph.D. Surgeon: Colton Holden MD Anesthesia: MAC Was an Transition Of Care Specialist used for this Procedure?: No Estimated blood loss (mL): 0 IV fluids (mL): 400 Urine output (mL): 0 (No Kennedy to record output) Pathology: other (1) antrum x1, 2) fundus x1, 3) GE junction x2, 4) distal esophagus x2) Condition: stable Disposition: PACU
--- NOTE | 2024-01-13 10:43 | MHC.SHP ---
Pre-Procedural Eval Section A - 24 Hr Update-Section A only Date of Service: 01/13/24 The patient is an INPATIENT: No The patient has been examined within 24 hours of the surgical procedure. The History & Physical has been completed within 30 days and I have reviewed it.: Yes Section B - Complete if H&P > 30 days Chief Complaint: Morbid (severe) obesity due to excess calories Relevant Family History (Specify if Yes): No Relevant Social History: None Present Medications: None Medical History: No relevant PMH History of Previous Operations: No relevant previous surgery Allergies: Allergies Allergy/AdvReac Type Severity Reaction Status Date / Time bee pollen [BEE STINGS] Allergy Severe SWELLING Verified 01/13/24 10:14 amoxicillin [AMOXICILLIN] Allergy Unknown Rash Verified 01/13/24 10:14 SEASONAL ALLERGIES Allergy Unknown SINUS Uncoded 01/13/24 10:14 CONGESTION Review of Systems Sugical H&P ROS: Negative: Constitution, Cardiovascular, Respiratory, Neurological, Psychiatric, Hem-Onc, Allergic/Immunologic, Gastrointestinal, Genitourinary, Musculoskeletal, Integumentary, Endocrine and Eyes/Ears/Nose/Throat Exam Surgical H&P Exam: Normal: HEENT, Normal: Heart, Normal: Lungs, Normal: Extremities, Normal: Abdomen, Normal: Skin and Normal: Neurological Plan Diagnosis/Plan: Unchanged (EGD to assess the stomach's anatomy. Risks of bleeding and perforation were discussed with the patient and she is in agreement with the plan.) I have reviewed the history and physical and performed a pertinent physical examination on my patient. No changes have occurred unless specified. Time Spent With Patient Time: Total time managing care of this patient today ____ minutes.
[2024-01-13 12:05] VITALS: BP 114/63; PULSE 94; RESP 16; TEMP 36.8; O2SAT 100
[2024-01-13 12:20] VITALS: BP 146/94; PULSE 81; RESP 16; TEMP 36.4; O2SAT 100
== END 2024-01-13 12:45 | disposition home or self-care (01) ==
PROVIDERS: Nurse Practitioner; Visit Provider Surgery
PROC: 0DJ08ZZ Inspection of Upper Intestinal Tract, Via Natural or Artificial Opening Endoscopic (ICD-10-PCS; CPT 43235; principal; 2024-01-13 10:50)
DX: E66.01 Morbid (severe) obesity due to excess calories (principal); Z68.42 Body mass index [BMI] 45.0-49.9, adult; D68.00 Von Willebrand disease, unspecified; E78.00 Pure hypercholesterolemia, unspecified; J30.2 Other seasonal allergic rhinitis; Z88.1 Allergy status to other antibiotic agents; Z98.890 Other specified postprocedural states
CPT/HCPCS: 43239; 81025; 88305; 88342; J1100; J1596; J2003; J2250; J2704

== ENCOUNTER → 2024-01-13 09:37 | Outpatient (BNV) | payer OTHER, SELFPAY | PROVIDERS: Visit Provider Surgery | DX: E66.813 Obesity, class 3 (principal); Z68.42 Body mass index [BMI] 45.0-49.9, adult | CPT/HCPCS: 43239 ==

== ENCOUNTER 2024-01-20 10:17 | Outpatient (AMB) | payer OTHER, SELFPAY ==
--- NOTE | 2024-01-20 10:19 | A.OFFVIS_ITS ---
Vital Signs 01/20/24 10:26 Height 4 ft 10 in Weight 242 lb BMI 50.6 BP 133/60 Blood Pressure Location Rt brachial Position Sitting Pulse 79 Intake Visit Reasons: S/p HS Lt groin, Rt axilla wound check Intake Note: This patient presents for wound check status post excision hidradenitis suppurativa left groin and right axilla. Pt c/o; reports no complaints at this time. Email Deployment Specialist Required: No Accompanied by: Self / Same As Patient Allergies bee pollen [BEE STINGS] Allergy (Severe, Verified 01/20/24 10:27) SWELLING amoxicillin [AMOXICILLIN] Allergy (Unknown, Verified 01/20/24 10:27) Rash SEASONAL ALLERGIES Allergy (Unknown, Uncoded 01/20/24 10:27) SINUS CONGESTION Medication List - Last Reconciled 01/20/24 by Missael Ozuna MD cholecalciferol (vitamin D3) 125 mcg PO DAILY mecobalamin (vitamin B12) 1,000 mcg sublingual DAILY HPI HPI S/p HS Lt groin, Rt axilla wound check: Details: She is here for follow-up for her hidradenitis suppurativa. She describes noticing some scanty drainage from the left groin again. Denies any significant pain She says that this has not been more swollen. She has started on a weight management program and had undergone endoscopy 2 wee ks ago. She says she is supposed to meet with the j2ee consultant in 2 weeks [facility] Medical History Abscess of left groin Surgical History Hx of surgical procedure (~11/18/23) Status post debridement Hx of wisdom tooth extraction Hx of tonsillectomy Family History Mother Arthritis Anemia Father Diabetes High cholesterol Gout Brother No problems noted. Sister No problems noted. Sister No problems noted. Paternal Aunt Breast cancer Social History Household Members: Family Housing: House Are you a primary pediatric acute care unit nurse to a significant other at home: No Do you presently have visiting nurse or other home services: No Alcohol intake: never Patient Tobacco Use Status: Never used Tobacco Substance Use Type: Other service: No Review of Systems Const Denies chills and Denies fever(s) Card Denies chest pain, Denies dyspnea and Denies dyspnea on exertion Resp Denies cough, Denies dyspnea and Denies dyspnea on exertion GI Denies hematochezia and Denies change in bowel habits Denies hematuria Musc Denies back pain and Denies limited range of motion Neuro Denies focal weakness and Denies convulsions Psych Denies depression and Denies mood swings Physical Exam Vital Signs: Last Vital Signs Pulse 79 01/20/24 10:26 BP 133/60 01/20/24 10:26 BMI result Body Mass Index 50.6 Const Other: Morbidly obese General: comfortable and no acute distress Resp Effort & Inspection: normal respiratory effort Skin Other: Left groin note of some scanty drainage but no fluctuance, no induration, no pus, no cellulitis Assessment & Plan Assessment & Plan (1) Hidradenitis suppurativa: Code(s): L73.2 - Hidradenitis suppurativa Category: Medical Plan: She had previously undergone excision of hidradenitis on the left groin. She notices some scanty drainage periodically. Current exam does not reveal any new fluctuance or induration. I explained to her that it does not appear that we will need to do any surgical intervention for now. She does appear to have active hidradenitis. She is going to meet with the j2ee consultant as I had recommended for biologic treatment of her systemic disease. She understands she can follow up with me on a p.r.n. basis. Coding Level of Care Code Est Pt Level 3 (17715) Diagnoses Hidradenitis suppurativa L73.2
[2024-01-20 10:26] VITALS: BP 133/60; PULSE 79; BMI 50.6
== END 2024-01-20 10:32 | disposition home or self-care (01) ==
PROVIDERS: Visit Provider Surgery
DX: L73.2 Hidradenitis suppurativa (principal)
CPT/HCPCS: 99024

== ENCOUNTER → 2024-01-20 10:17 | Outpatient (BNVA) | payer OTHER, SELFPAY | PROVIDERS: Visit Provider Surgery | DX: L73.2 Hidradenitis suppurativa (principal); Z98.890 Other specified postprocedural states | CPT/HCPCS: 99212 ==

== ENCOUNTER → 2024-01-20 10:17 | Outpatient (AMB) | payer OTHER, SELFPAY ==
--- NOTE | 2024-01-20 12:05 | MHC.WMTHER ---
Intake Intake Visit Reasons: VIDEO Intake Allergies bee pollen [BEE STINGS] Allergy (Severe, Verified 01/20/24 10:27) SWELLING amoxicillin [AMOXICILLIN] Allergy (Unknown, Verified 01/20/24 10:27) Rash SEASONAL ALLERGIES Allergy (Unknown, Uncoded 01/20/24 10:27) SINUS CONGESTION PFSH Medical History Abscess of left groin Surgical History Hx of surgical procedure (~11/18/23) Status post debridement Hx of wisdom tooth extraction Hx of tonsillectomy Family History Mother Arthritis Anemia Father Diabetes High cholesterol Gout Brother No problems noted. Sister No problems noted. Sister No problems noted. Paternal Aunt Breast cancer Social History Household Members: Family Housing: House Are you a primary after school caregiver to a significant other at home: No Do you presently have visiting nurse or other home services: No Alcohol intake: never Patient Tobacco Use Status: Never used Tobacco Substance Use Type: Other service: No Behavioral Health Assessment Weight Management Therapy Therapy Notes Details PT is a 23 y/o female who presents for consult as part of SW program. She was at the program last year but did not continue due to multiple family and social stresses as well of depressive symptoms. PT has started a new job, now has a car and is in the process of moving alone, so she feels in a better place to commit to her weight-loss journey. Today we updated the different areas of assessment, and PHQ-9 was administered. PT is not cleared yet, she is aware of need to establish MH treatment as preventative measure and also as another self-care practice for her journey at achieving a healthier life style. Presenting Concerns Referral Source WMP- provider Reason for referral Completion of behavioral health assessment as part of process for weight-loss surgery. Precipitating Event Obesity. Living Situation Current Living Situation Rent At risk of losing current housing? No Satisfied with current living situation? Yes Comments Pt lives with her mother. Food/Weight/Diet Expectations of change Initial goal to lose 10% of your weight before surgery, which is about 24lbs. Ultimate weight goal: 215lbs before surgery PT is implementing the following: Current meal plan: 2 protein shakes, 2.5 protein bars and one meal per day. Exercise plan: Hasn't started. Planning to go to the gym, she also has a stepper at home. History/Relationship with food Example of meals before starting the program: Breakfast: Lunch: Dinner: Snacks: Drinks/Liquids: History/Relationship with weight In the last 10 years, the patient's Lowest weight was and highest Social History Family history and relationship Pt reports she lives with her mother. Her Parents are , and she is the youngest of 3 kids, and only from mom-dad relationship. She has a sister from mom's side and a brother from dad's side. Client reports good family relationships. Parental/Familial fryline attendant obligations Pt reports to be single, and have no children. Developmental history and status ADHD Had a 504 plan in School. Social support Grandmother, parents, sister. Community support None Mu-Ism/Spirituality Sabianism. Cultural/Ethnic information . Wolof speaking. Legal Involvement and History Current or historical involvement with the legal system? None reported. Education Highest grade completed HS and 2 years of college. Preferred learning style Learn by doing and Visual Currently enrolled in educational program? No Interested in further educational program? Yes (Was enrolled at [employer] [employer].) Educational Interests/Skills PT wants to work in work/office environment, not sure about what to do if coming back to school. 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 No Meaningful activities Play video games, read, listen to music, family activities. Financial Situation Describe current financial situation Comfortable and Occasional struggle Financial assistance? None Service Service? No Mental Health and Addiction Treatment Current/Past substance abuse? No Current/Past addictive behavior concerns? No Psychiatric history Client reports she was in therapy until age 20. Currently does not attend counseling. Diagnosed with Depression, Anxiety and ADHD. PT reports she has been doing better emotionally in the last year, she is aware of a need to be in counseling. Never been hospitalized for MH, also denies past self-harm/other-harm events. Medical and Physical Health Summary Additional Medical History not covered in history None Sexual History concerns None Physical exam in the last year? No (Looking for a PCP.) Pain Screening Current pain? Yes Pain in the last few months? Yes Comments Due to hidradenitis supurativa. Medications Is the patient compliant with medications? Not applicable Does the patient have Palm Guardian in place? Not applicable Does the patient use complimentary health approaches? No Trauma/Abuse History History of trauma? Yes (7 Months ago she witnessed grandfather passing as his OPTOMETRIC COORDINATOR. ) Physical Abuse None Domestic Violence/Abuse None Sexual Abuse/Molestation None Community Violence None Elder Abuse None Financial Abuse None Verbal/Emotional Abuse None Physical Neglect None Emotional Neglect None Related Trauma None Witness to Violence None Exploitation None Other Past (7 Months ago she witnessed grandfather passing as his OPTOMETRIC COORDINATOR. ) Current Involvement By None Reported Additional Mandated Report Required None Reported Safety and Protective Factors Indicated by Mental Status Exam No Self-Harm Factors Suicidal thoughts/plans/rehearsal behaviors None Suicide attempts None Self-harm behaviors None Family history of suicidal/self harm None Life threatening eating disorder None Victimized by others/places self in danger None Command hallucinations for self harm None Elopement without ability to self preserve None Other self-harm None Other Risk Factors Is this assessment indicated by the Mental Status Exam? No Recent significant loss Past (Grandfather, 7 months ago.) Memory impairment/Dementia disorientation None Developmental disability/PPD spectrum None Young age at time of first violent behavior None Early attachment issues None Traumatic brain injury None Cognitive impairment/Learning disability None Extreme impulsivity None Presents with trauma related symptoms None lack of empathy/remorse when aggressive None Injury to animals None Positive views of criminal behavior None Requires substitute decision making None Access to/Keeping/Carrying weapons None Non-violent problematic sexual behavior None Person is actively abusing substances None Increased risk association with presence of psychiatric symptoms None Unwilling/Unable to engage in shared risk decisions/risk reduction efforts None Chronic medical illness or chronic pain None Unable/Unwilling to manage risks None Experiencing acute high stress situation None Questionnaires PHQ-9 Over the last 2 weeks, how often have you been bothered by any of the following problems? 1. Little interest or pleasure in doing things: more than half the days 2. Feeling down, depressed, or hopeless: more than half the days 3. Trouble falling or staying asleep, or sleeping too much: nearly every day 4. Feeling tired or having little energy: nearly every day 5. Poor appetite or overeating: nearly every day 6. Feeling bad about yourself - or that you are a failure or have let yourself or your family down: nearly every day 7. Trouble concentrating on things, such as reading the newspaper or watching television: more than half the days 8. Moving or speaking so slowly that other people could have noticed. Or the opposite - being so fidgety or restless that you have been moving around a lot more than usual: more than half the days 9. Thoughts that you would be better off or of hurting yourself in some way: several days Total score: 21 Depression Screening Interpretation: Positive Depression Screening Done: Yes Source: Developed by Drs. Bobby Haskins, Trish Peters, Prateek Hoang and colleagues, with an educational lloyd from [employer]. Binge Eating Scale Group 1 A. I don't feel self-conscious about my wt. or body size when I'm with others. B. I feel concerned about how I look to others, but it normally does not make me fell disappointed with myself C. I do get self-conscious about my appearance and wt. which makes me feel disappointed in myself. D. I feel very self-conscious about my wt. and frequently I feel intense shame and disgust for myself. I try to avoid social contacts because of my self-consciousness. Response Group 1: C Group 2 A. I don't have any difficulty eating slowly in the proper manner. B. Although I seem to gobble down foods, I don't end up feeling stuffed because of eating to much. C. At times, I tend to eat quickly and then, I feel uncomfortably full afterwards. D. I have the habit of bolting down my food, without really chewing it. When this happens I usually feel uncomfortably stuffed because I've eaten to much. Response Group 2: C Group 3 A. I feel capable to control my eating urges when I want to. B. I feel like I have failed to control my eating more than the average person. C. I feel utterly helpless when it comes to feeling in control of my eating urges. D. Because I feel so helpless about controlling my eating I have become very desperate about trying to get control. Response Group 3: B Group 4 A. I don't have the habit of eating when I'm bored. B. I sometimes eat when I'm bored, but often I'm able to get busy and get my mind off food. C. I have a regular habit of eating when I'm bored, but occasionally, I can use some other activity to get my mind off eating. D. I have a strong habit of eating when I'm bored. Nothing seems to help me breath the habit. Response Group 4: C Group 5 A. I'm usually physically hungry when I eat something. B. Occasionally, I eat something on impulse even though I really am not hungry. C. I have the regular habit of eating foods, that I might not really enjoy, to satisfy a hungry feeling even though physically, I don't need the food. D. Although I'm not physically hungry, I get a hungry feeling in my mouth that only seems to be satisfied when I eat a food, like sandwich, that fills my mouth. Sometimes, when I eat the food to satisfy my mouth hunger, I then spit the food out so I won't gain weight. Response Group 5: B Group 6 A. I don't feel any guilt or self-hate after I overeat. B. After I overeat, occasionally I feel guilt or self-hate. C. Almost all the time I experience strong guilt or self-hate after I overeat. Response Group 6: B Group 7 A. I don't lose total control of my eating when dieting even after periods when I overeat. B. Sometimes when I eat a forbidden food on a diet, I feel like I blew it and eat even more. C. Frequently, I have the habit of saying to myself, I've blown it now, why not go all the way, when I overeat on a diet. When that happens I eat more. D. I have a regular habit of starting a strict diets for myself but I break the diets by going on an eating binge. My life seems to be either a feast or famine. Response Group 7: B Group 8 A. I rarely eat so much food that I feel uncomfortably stuffed afterwards. B. Usually about once a month, I each such a quantity of food, I end up feeling very stuffed. C. I have regular periods during the month when I eat large amounts of food, either at mealtime or at snacks. D. I eat so much food that I regularly feel quite uncomfortable after eating and sometimes a bit nauseous. Response Group 8: C Group 9 A. My level of calorie intake does not go up very high or go down very low on a regular basis. B. Sometimes after I overeat, I will try to reduce my caloric intake to almost nothing to compensate for the excess calories I've eaten. C. I have a regular habit of overeating during the night. It seems that my routine is not to be hungry in the morning but overeat in the evening. D. In my adult years, I have had week-long periods where I practically starve myself. This follows periods when I overeat. It seems I live a life of either feast or famine. Response Group 9: C Group 10 A. I usually am able to stop eating when I want to. I know when enough is enough. B. Every so often, I experience a compulsion to eat which I can't seem to control. C. Frequently, I experience strong urges to eat which I seem unable to control, but at other times I can control my eating urges. D. I feel incapable of controlling urges to eat. I have a fear of not being able to stop eating voluntarily. Response Group 10: B Group 11 A. I don't have any problem stopping eating when I feel full. B. I usually can stop eating when I feel full but occasionally overeat leaving me feeling uncomfortably stuffed. C. I have a problem stopping eating once I start and usually I feel uncomfortably stuffed after I eat a meal. D. Because I have a problem not being able to stop eating when I want, I sometimes have to induce vomiting to relieve my stuffed feeling. Response Group 11: B Group 12 A. I seem to eat just as much when I'm with others, Family social gatherings as when I'm by myself. B. Sometimes, when I'm with other persons, I don't eat as much as I want to eat because I'm self-conscious about my eating. C. Frequently, I eat only a small amount of food when others are present, because I'm very embarrassed about my eating. D. I feel so ashamed about overeating that I pick times to overeat when I know no one will see me. I feel like a closet eater. Response Group 12: B Group 13 A. I eat three meals a day with only an occasional between meal snack. B. I eat 3 meals a day, but I also normally snack between meals. C. When I am snacking heavily, I get in the habit of skipping regular meals. D. There are regular periods when I seem to be continually eating, with no planned meals. Response Group 13: C Group 14 A. I don't think much about trying to control unwanted eating urges. B. At least some of the time, I feel my thoughts are pre-occupied with trying to control my eating urges. C. I feel that frequently I spend much time thinking about how much I ate or about trying not to eat anymore. D. It seems to me that most of my waking hours are pre-occupied by thoughts about eating or not eating. I feel like I'm constantly struggling not to eat. Response Group 14: B Group 15 A. I don't think about food a great deal. B. I have strong craving for food but they last only for brief periods of time. C. I have days when I can't seem to think about anything else but food. D. Most of my days seem to be pre-occupied with thoughts about food. I feel like I live to eat. Response Group 15: B Group 16 A. I usually know whether or not I'm physically hungry. I take the right portion of food to satisfy me. B. Occasionally, I feel uncertain about knowing whether or not I'm physically hungry. A these times it's hard to know how much food I should take to satisfy me. C. Even though I might know how many calories I should eat, I don't have any idea what is a normal amount of food for me. Response Group 16: B Binge Eating Score: 22 Score less than 17 Minimal Risk Score between 18-26 Moderate Risk Score between 27-46 High Risk Assessment & Plan Assessment & Plan (1) Dysthymia: Code(s): F34.1 - Dysthymic disorder (2) Adjustment disorder: Code(s): F43.20 - Adjustment disorder, unspecified Plan Pt not cleared today. PT provided verbal consent for a referral to be sent for OP services at [facility]. and we did it together during this encounter. PHQ-9 will be administered at next visit and BES reviewed with client. PT will need to start counseling services before clearance is granted. Next matilda: 02/03/24 at 11am. Telehealth Telehealth Telehealth Platform: [email or web address] Location of provider rendering services: other Location of patient: address on file Patient Identification confirmed using: Name, : Yes Telehealth method: video Patient verbally consented to treatment: Yes Patient verbally consented to billing insurance company: Yes Patient informed of any privacy concerns related to visit: Yes Minutes spent on Phone/Video with Pt.: 60 Coding Level of Care Code New Pt Tele Psytx >53 mins ([id number]) Patient Type New Diagnoses Dysthymia F34.1 Adjustment disorder F43.20 Time Spent (min) 60
== END ==
PROVIDERS: PCP Internal Medicine; Visit Provider Counselor Mental Health
DX: F34.1 Dysthymic disorder (principal); F43.20 Adjustment disorder, unspecified
CPT/HCPCS: 90837

== ENCOUNTER 2024-02-03 11:21 | Outpatient (AMB) | payer OTHER, SELFPAY ==
--- NOTE | 2024-02-03 11:00 | A.OFFWM_ITS ---
Intake Intake Visit Reasons: VIDEO F/U Allergies bee pollen [BEE STINGS] Allergy (Severe, Verified 01/20/24 10:27) SWELLING amoxicillin [AMOXICILLIN] Allergy (Unknown, Verified 01/20/24 10:27) Rash SEASONAL ALLERGIES Allergy (Unknown, Uncoded 01/20/24 10:27) SINUS CONGESTION [facility] Medical History Abscess of left groin Surgical History Hx of surgical procedure (~11/18/23) Status post debridement Hx of wisdom tooth extraction Hx of tonsillectomy Family History Mother Arthritis Anemia Father Diabetes High cholesterol Gout Brother No problems noted. Sister No problems noted. Sister No problems noted. Paternal Aunt Breast cancer Social History Household Members: Family Housing: House Are you a primary hemodialysis patient care specialist to a significant other at home: No Do you presently have visiting nurse or other home services: No Alcohol intake: never Patient Tobacco Use Status: Never used Tobacco Substance Use Type: Other service: No Behavioral Health Assessment Weight Management Therapy Therapy Notes Details PT is a 23 y/o female who presents for a second visit to continue assessment part of [facility] program. She was at the program last year but did not continue due to multiple family and social stresses as well of depressive symptoms. PT has started a new job, now has a car and is in the process of moving alone, so she feels in a better place to commit to her weight-loss journey. Today we completed assessment and PHQ-9 was administered again. We discussed triggers and Sx of depression, worked in ways to break negative self-talk patterns and reviewed some grounding/mindfulness exercises. PT reports she was called by [facility]-intake Dep, and was told she was gonna be assigned a therapist soon. Presenting Concerns Referral Source [facility]- provider Reason for referral Completion of behavioral health assessment as part of process for weight-loss surgery. Precipitating Event Obesity. Living Situation Current Living Situation Rent At risk of losing current housing? No Satisfied with current living situation? Yes Comments Pt lives with her mother. Food/Weight/Diet Expectations of change Initial goal to lose 10% of your weight before surgery, which is about 24lbs. Ultimate weight goal: 215lbs before surgery PT started again the program on 01/02 and weight was 239Lbs, her weight from yesterday was 238Lbs. However she gained weight at the beginning of the month (243Lbs)- So she has lost 5 Lbs in about 2 weeks. PT is implementing the following: Current meal plan: 2 protein shakes, 2.5 protein bars and one meal per day (8F/8F). Exercise plan: Hasn't started. Planning to go to the gym, she also has a stepper at home. History/Relationship with food Pt reports she used to eat she was taught at home, food is very and limited options around veggies/fruits. She is always been interested in try new foods and expand palate, however is not what her parents will buy or plan to get when doing groceries. Example of meals before starting the program: Breakfast: Skip most days or eggs with sausage, yogurt parfait w/ granola with berries and honey. Lunch: Leftovers from dinner (pasta, rice/meat/veggies). Or will [employer]ordash some food or Potatoes wedges w/ sprite, a bowl from [employer]. Dinner: style, mainly cook by her mom. Rice with beans and pork, salad with potatoes and ay type of meat, pasta. Had rice almost everyday. Snacks: fruit, small of chips. Drinks/Liquids: Water, 1 soda with lunch, ice tea, Gatorade zero. History/Relationship with weight PT reports he has always been overweight. PT reports she was under 200Lbs when she was in elementary school. In high s chool and after that she was always over 200Lbs. History/Relationship with dieting Never tried retirement strategies. Mainly tried to cut on certain food on her own. Did [facility] last year. After that she did more meal prep. Binge Eating Do you frequently eat large amounts of food in short periods of time, not feeling physically hungry? Yes Do you feel out of control when you eat a large amount of food in a short period of time? No Do you eat large amounts of food rapidly and typically alone? No Night Eating Do you wake up at least once during the night to eat? No If you wake up in the night, do you find that it is necessary to eat something in order to fall back asleep? No Do you have little or no appetite in the morning and feel very hungry in the evening, often overeating between dinner and when you go to bed? No Social History Family history and relationship Pt reports she lives with her mother. Her Parents are , and she is the youngest of 3 kids, and only from mom-dad relationship. She has a sister from mom's side and a brother from dad's side. Client reports good family relationships. Parental/Familial institutional research director obligations Pt reports to be single, and have no children. Developmental history and status ADHD Had a 504 plan in School. Social support Grandmother, parents, sister. Community support None Sabianism/Spirituality Lutheran. Cultural/Ethnic information . Omani speaking. Legal Involvement and History Current or historical involvement with the legal system? None reported. Education Highest grade completed HS and 2 years of college. Preferred learning style Learn by doing and Visual Currently enrolled in educational program? No Interested in further educational program? Yes (Was enrolled at [employer].) Educational Interests/Skills PT wants to work in work/office environment, not sure about what to do if coming back to school. 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 No Meaningful activities Play video games, read, listen to music, family activities. Financial Situation Describe current financial situation Comfortable and Occasional struggle Financial assistance? None Service Service? No Mental Health and Addiction Treatment Current/Past substance abuse? No Comments Alcohol: couple times at year. 1-2 drinks. Cigarettes/Tobacco: None. Cannabis/Edibles: 1 couple times at week. (1-3 x week). Current/Past addictive behavior concerns? No Psychiatric history Client reports she was in therapy until age 20. Currently does not attend counseling. Diagnosed with Depression, Anxiety and ADHD. PT reports she has been doing better emotionally in the last year, she is aware of a need to be in counseling. Never been hospitalized for MH, also denies past self-harm/other-harm events. Medical and Physical Health Summary Additional Medical History not covered in history None Sexual History concerns None Physical exam in the last year? No (Looking for a PCP.) Pain Screening Current pain? Yes Pain in the last few months? Yes Comments Due to hidradenitis supurativa. Medications Is the patient compliant with medications? Not applicable Does the patient have Palm Guardian in place? Not applicable Does the patient use complimentary health approaches? No Trauma/Abuse History History of trauma? Yes (7 Months ago she witnessed grandfather passing as his ADDICTION PSYCHIATRIST. ) Physical Abuse None Domestic Violence/Abuse None Sexual Abuse/Molestation None Community Violence None Elder Abuse None Financial Abuse None Verbal/Emotional Abuse None Physical Neglect None Emotional Neglect None Related Trauma None Witness to Violence None Exploitation None Other Past (7 Months ago she witnessed grandfather passing as his ADDICTION PSYCHIATRIST. ) Current Involvement By None Reported Additional Mandated Report Required None Reported Safety and Protective Factors Indicated by Mental Status Exam No Self-Harm Factors Suicidal thoughts/plans/rehearsal behaviors None Suicide attempts None Self-harm behaviors None Family history of suicidal/self harm None Life threatening eating disorder None Victimized by others/places self in danger None Command hallucinations for self harm None Elopement without ability to self preserve None Other self-harm None Other Risk Factors Is this assessment indicated by the Mental Status Exam? No Recent significant loss Past (Grandfather, 7 months ago.) Memory impairment/Dementia disorientation None Developmental disability/PPD spectrum None Young age at time of first violent behavior None Early attachment issues None Traumatic brain injury None Cognitive impairment/Learning disability None Extreme impulsivity None Presents with trauma related symptoms None lack of empathy/remorse when aggressive None Injury to animals None Positive views of criminal behavior None Requires substitute decision making None Access to/Keeping/Carrying weapons None Non-violent problematic sexual behavior None Person is actively abusing substances None Increased risk association with presence of psychiatric symptoms None Unwilling/Unable to engage in shared risk decisions/risk reduction efforts None Chronic medical illness or chronic pain None Unable/Unwilling to manage risks None Experiencing acute high stress situation None Questionnaires PHQ-9 Over the last 2 weeks, how often have you been bothered by any of the following problems? 1. Little interest or pleasure in doing things: several days 2. Feeling down, depressed, or hopeless: several days 3. Trouble falling or staying asleep, or sleeping too much: several days (Trouble falling) 4. Feeling tired or having little energy: several days 5. Poor appetite or overeating: not at all 6. Feeling bad about yourself - or that you are a failure or have let yourself or your family down: more than half the days 7. Trouble concentrating on things, such as reading the newspaper or watching television: not at all 8. Moving or speaking so slowly that other people could have noticed. Or the opposite - being so fidgety or restless that you have been moving around a lot more than usual: not at all 9. Thoughts that you would be better off or of hurting yourself in some way: several days Total score: 7 Depression Screening Interpretation: Positive (Lower scores that the last time.) Depression Screening Done: Yes Source: Developed by Drs. Bobby Haskins, Trish Peters, Prateek Hoang and colleagues, with an educational lloyd from [employer]. Assessment & Plan Assessment & Plan (1) Depression, unspecified: Code(s): F32.A - Depression, unspecified Qualifiers: Depression Type: unspecified Qualified Code(s): F32.A - Depression, unspecified Plan Clearance pending upon client starts counseling services. in the mean time client will continue meeting with this provider on a monthly basis to work on Sx management, habit building and with her commitment with the program and weight- loss journey. Next matilda: 01/30/2024 at 10am. Telehealth Telehealth Telehealth Platform: Authernative Location of provider rendering services: other Location of patient: address on file Patient Identification confirmed using: Name, : Yes Telehealth method: video Patient verbally consented to treatment: Yes Patient verbally consented to billing insurance company: Yes Patient informed of any privacy concerns related to visit: Yes Minutes spent on Phone/Video with Pt.: 60 Coding Level of Care Code Established Pt Tele Psytx >53 mins (44263) Patient Type Established Diagnoses Depression, unspecified depression type F32.A Depression Type: unspecified Time Spent (min) 60
== END 2024-02-03 12:00 | disposition home or self-care (01) ==
LOC: HO.HBST 11:21
PROVIDERS: Visit Provider Counselor Mental Health
DX: F32.A Depression, unspecified (principal)
CPT/HCPCS: 90837

== ENCOUNTER → 2024-02-03 11:21 | Outpatient (BNVA) | payer OTHER, SELFPAY | PROVIDERS: Visit Provider Counselor Mental Health ==

== ENCOUNTER 2024-02-29 14:10 | Outpatient (AMB) | payer OTHER, SELFPAY ==
--- NOTE | 2024-02-29 14:31 | MHC.OFFWIV ---
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 Patient Tobacco Use Status: Never used Tobacco Allergies bee pollen [BEE STINGS] Allergy (Severe, Verified 02/29/24 14:37) SWELLING amoxicillin [AMOXICILLIN] Allergy (Unknown, Verified 02/29/24 14:37) Rash SEASONAL ALLERGIES Allergy (Unknown, Uncoded 02/29/24 14:37) SINUS CONGESTION Do you need a note to return to daycare/school/sports/work: No HPI HPI Comments History of Present Illness Details 23 y/o female patient who presents to the walk in clinic with c/o Tongue infection. She had her tongue Pierced three days ago. Denies fevers, chills, nausea or vomiting. She does endorse frequent drooling but denies chocking. COUNT INCLUDES [facility] Medical History Abscess of left groin Surgical History Hx of surgical procedure (~11/18/23) Status post debridement Hx of wisdom tooth extraction Hx of tonsillectomy Family History Mother Arthritis Anemia Father Diabetes High cholesterol Gout Brother No problems noted. Sister No problems noted. Sister No problems noted. Paternal Aunt Breast cancer Social History Household Members: Family Housing: House Are you a primary respiratory care instructor to a significant other at home: No Do you presently have visiting nurse or other home services: No Alcohol intake: never Patient Tobacco Use Status: Never used Tobacco Substance Use Type: Other service: No Physical Exam Vital Signs: Last Vital Signs Pulse 74 02/29/24 14:33 BP 126/78 02/29/24 14:33 Pulse Ox 98 02/29/24 14:33 Oxygen Delivery Method Room Air 02/29/24 14:33 BMI result Body Mass Index 50.8 Const General: cooperative, comfortable and no acute distress Nutritional Appearance: obese Orientation/consciousness: patient oriented x3 HEENT Head: Yes normocephalic Mouth: lip normal, moist mucous membranes and tongue abnormal (Mild swelling around the piercing, some discolored fluid present ) smooth and with piercing present Teeth and gingiva: other (braces present) Throat: Yes uvula midline and No uvular edema Neuro General: patient oriented x3, gait normal and moves all extremities Psych Other: Speech slightly affected due to tongue peircing Speech and movement: Normal speech and movement present Affect: normal affect Attitude: cooperative Assessment & Plan Assessment & Plan (1) Pierced tongue infection: Code(s): S01.532A - Puncture wound without foreign body of oral cavity, initial encounter; K14.0 - Glossitis Plan: Ordered Abx Maintain a good Oral hygiene. Medications: New sulfamethoxazole-trimethoprim 800-160 mg (Bactrim DS) 1 tab PO BID 6 tabs 0RF 3 days K14.0 - Glossitis, S01.532A - Puncture wound without foreign body of oral cavity, initial encounter Coding Level of Care Code Est Pt Level 3 (89047) Diagnoses Pierced tongue infection S01.532A; K14.0 Time Spent (min) 15
[2024-02-29 14:33] VITALS: BP 126/78; PULSE 74; O2SAT 98; BMI 50.8
== END 2024-02-29 15:43 | disposition home or self-care (01) ==
PROVIDERS: Visit Provider Nurse Practitioner Family
DX: S01.532A Puncture wound without foreign body of oral cavity, initial encounter (principal); K14.0 Glossitis

== ENCOUNTER → 2024-02-29 14:10 | Outpatient (BNVA) | payer OTHER, SELFPAY | PROVIDERS: Visit Provider Nurse Practitioner Family | DX: S01.532A Puncture wound without foreign body of oral cavity, initial encounter (principal); K14.0 Glossitis | CPT/HCPCS: 99212 ==